=== PATIENT | male | born 1970 | race Two or more races ===

== ENCOUNTER 2016-11-16 13:30 | Emergency (ER) | payer OTHER ==
[2016-11-16 14:25] VITALS: RESP 20
--- NOTE | 2016-11-16 14:48 | ED ---
General Adult HPI - General Chief complaint: Urogenital Stated complaint: Male Time Seen by Provider: 11/16/16 13:45 Source: patient, RN notes reviewed Mode of arrival: ambulatory Limitations: no limitations - History of Present Illness Initial comments: This is a 46-year-old male presents emergency Department with a past medical history significant for multiple strokes. speech for the patient because the patient is very inaccurate according to and he is not able to express what he wants. Patient states this morning she figured out that he was having difficulty urinating and complained a super pubic abdominal pain. states she has had him in before for urinary tract infections and she wonders if that is going on again today. Patient has not had any recent fever or chills patient has not had any nausea vomiting diarrhea. Patient is not complaining any chest pain difficult breathing shortness of breath. Patient had no injury or trauma. Patient is not complaining of any back pain. - Related Data Home Medications Medication Instructions Recorded Confirmed Albuterol Inhaler [Ventolin Hfa 2 puff INHALATION RT-Q4H PRN 01/22/15 11/16/16 Inhaler] oxyCODONE-APAP 10-325MG [Percocet 1 tab PO Q6H PRN 04/16/15 11/16/16 10-325 mg] ALPRAZolam [Xanax] 0.25 mg PO Q6HR PRN 11/24/15 11/16/16 Acetaminophen Tab [Tylenol] 500 mg PO Q6H PRN 11/24/15 11/16/16 Dextroamphetamine/Amphetamine 10 mg PO BID 11/24/15 11/16/16 [Adderall Xr] Diltiazem Cd [Cardizem CD] 120 mg PO DAILY@0600 11/24/15 11/16/16 Metoprolol Tartrate [Lopressor] 50 mg PO BID@0600,1800 11/24/15 11/16/16 Omeprazole [PriLOSEC] 20 mg PO AC-BRKFST@0611/24/15 11/16/16 Pravastatin Sodium [Pravachol] 40 mg PO HS 11/24/15 11/16/16 Temazepam [Restoril] 30 mg PO HS PRN 11/24/15 11/16/16 guaiFENesin SYRUP 100MG/5ML 200 mg PO Q6HR PRN 11/24/15 11/16/16 [Robitussin] levETIRAcetam 750 mg PO BID@0600,1800 11/24/15 11/16/16 Ferrous Sulfate [Iron (65 MG 325 mg PO BID@0600,1800 12/16/15 11/16/16 Elemental)] Warfarin Sodium [Coumadin] 3 mg PO Q48H 12/16/15 11/16/16 Gabapentin [Neurontin] 600 mg PO DAILY@1800 11/16/16 11/16/16 Warfarin Sodium [Coumadin] 2 mg PO Q48H 11/16/16 11/16/16 Previous Rx's Medication Instructions Recorded Polyethylene Glycol 3350 [Miralax] 17 gm PO HS #30 powd.pack 11/29/15 Allergies Allergy/AdvReac Type Severity Reaction Status Date / Time codeine AdvReac Nausea & Verified 11/16/16 14:35 Vomiting Review of Systems ROS Statement: Those systems with pertinent positive or pertinent negative responses have been documented in the HPI. ROS Other: All systems not noted in ROS Statement are negative. Past Medical History Past Medical History: COPD, CVA/TIA, GERD/Reflux, Hypertension, Seizure Disorder Additional Past Medical History / Comment(s): LAST SEIZURE 08/2014, HX BLOOD IN STOOL, LEFT SIDED WEAKNESS R/T CVA, Brain Shunt, currently tied History of Any Multi-Drug Resistant Organisms: None Reported Past Surgical History: Orthopedic Surgery Additional Past Surgical History / Comment(s): LEFT SHOULDER RECENT SX, LIBRA KNEE , RT ARM, STATES HAD A "BAD STAPH INFECTION YEARS AGO IN ONE KNEE", UNSURE IF MRSA, vp product management shunt, bone removed and replaced in his skull. Past Anesthesia/Blood Transfusion Reactions: No Reported Reaction Past Psychological History: ADD/ADHD, Anxiety Smoking Status: Former smoker Past Alcohol Use History: Abuse, Heavy Additional Past Alcohol Use History / Comment(s): PATIENT STATES HE IS AN ALCHOHOLIC, Past Drug Use History: None Reported - Past Family History Father History Unknown: Yes Additional Family Medical History / Comment(s): Pt is adopted General Exam - General Exam Comments Initial Comments: GENERAL: Patient is well-developed and well-nourished. Patient is nontoxic and well- hydrated and is in no acute distress. ENT: Neck is soft and supple. No significant lymphadenopathy is noted. Oropharynx is clear. Moist mucous membranes. Neck has full range of motion without eliciting any pain. EYES: The sclera were anicteric and conjunctiva were pink and moist. Extraocular movements were intact and pupils were equal round and reactive to light. Eyelids were unremarkable. PULMONARY: Unlabored respirations. Good breath sounds bilaterally. No audible rales rhonchi or wheezing was noted. CARDIOVASCULAR: There is a regular rate and rhythm without any murmurs gallops or rubs. ABDOMEN: Soft and nontender with normal bowel sounds. No palpable organomegaly was noted. There is no palpable pulsatile mass. Genitalia Did a examination of the patient's scrotum testicles and penis I saw no acute abnormalities SKIN: Skin is clear with no lesions or rashes and otherwise unremarkable. NEUROLOGIC: Patient is alert and oriented x3. Cranial nerves II through XII are grossly intact. Motor and sensory are also intact. Normal speech, volume and content. Symmetrical smile. MUSCULOSKELETAL: Normal extremities with adequate strength and full range of motion. LYMPHATICS: No significant lymphadenopathy is noted Limitations: no limitations Course Vital Signs 11/16/16 11/16/16 11/16/16 13:42 14:20 15:18 Temperature 98.2 F 97.1 F L Pulse Rate 89 72 69 Respiratory 18 20 20 Rate Blood Pressure 112/87 119/84 119/87 O2 Sat by Pulse 92 L 100 95 Oximetry 11/16/16 16:00 Temperature 97.3 F L Pulse Rate 85 Respiratory 20 Rate Blood Pressure 143/89 O2 Sat by Pulse 96 Oximetry Procedures - Catheter Insertion (Urinary) Indications: other (Assessment urinary tract infection) Prophylactic Antibiotics Given: No Bladder Scan/US before Catheterization: Yes Preparation: Povidone-Iodine Type of Catheter Inserted: 2 way, Jean Baptiste Catheter Balloon Size (mLs): 10 Topical Anesthesia Used: No Results: successfully catheterized-immediate flow Patient Tolerated Procedure: well Complications: none Medical Decision Making - Medical Decision Making When I place a catheter I felt no resistance. - Lab Data Result diagrams: 11/16/16 15:19 11/16/16 15:19 Lab Results 11/16/16 11/16/16 11/16/16 Range/Units 15:19 15:19 15:26 WBC 3.6 L (3.8-10.6) k/uL RBC 3.92 L (4.30-5.90) m/uL Hgb 10.7 L (13.0-17.5) gm/dL Hct 34.7 L (39.0-53.0) % MCV 88.5 D (80.0-100.0) fL MCH 27.3 (25.0-35.0) pg MCHC 30.8 L (31.0-37.0) g/dL RDW 19.9 H (11.5-15.5) % Plt Count 267 (150-450) k/uL Neutrophils % 50 % Lymphocytes % 40 % Monocytes % 4 % Eosinophils % 3 % Basophils % 1 % Neutrophils # 1.8 (1.3-7.7) k/uL Lymphocytes # 1.4 (1.0-4.8) k/uL Monocytes # 0.1 (0-1.0) k/uL Eosinophils # 0.1 (0-0.7) k/uL Basophils # 0.0 (0-0.2) k/uL Hypochromasia Marked Anisocytosis Slight Sodium 141 (137-145) mmol/L Potassium 4.5 (3.5-5.1) mmol/L Chloride 106 (98-107) mmol/L Carbon Dioxide 20 L (22-30) mmol/L Anion Gap 15 mmol/L BUN 10 (9-20) mg/dL Creatinine 0.80 (0.66-1.25) mg/dL Est GFR (MDRD) Af Amer >60 (>60 ml/min/1.73 sqM) Est GFR (MDRD) Non-Af >60 (>60 ml/min/1.73 sqM) Glucose 86 (74-99) mg/dL Calcium 8.4 (8.4-10.2) mg/dL Total Bilirubin 1.0 (0.2-1.3) mg/dL AST 134 H (17-59) U/L ALT 97 H (21-72) U/L Alkaline Phosphatase 211 H (38-126) U/L Total Protein 6.4 (6.3-8.2) g/dL Albumin 3.8 (3.5-5.0) g/dL Urine Color Yellow Urine Appearance Clear (Clear) Urine pH 6.5 (5.0-8.0) Ur Specific [place] 1.027 (1.001-1.035) Urine Protein 1+ H (Negative) Urine Glucose (UA) Negative (Negative) Urine Ketones 1+ H (Negative) Urine Blood Negative (Negative) Urine Nitrate Negative (Negative) Urine Bilirubin Negative (Negative) Urine Urobilinogen <2.0 (<2.0) mg/dL Ur Leukocyte Esterase Negative (Negative) Urine RBC 1 (0-5) /hpf Urine WBC 4 (0-5) /hpf Ur Squamous Epith Cells <1 (0-4) /hpf Granular Casts 10 (0) /lpf Urine Mucus Rare H (None) /hpf Disposition Clinical Impression: Dysuria Disposition: HOME SELF-CARE Condition: Good Instructions: Dysuria (ED) Referrals: Camelia Clarke MD [Primary Care Provider] - 1-2 days Time of Disposition: 16:51
[2016-11-16 15:27] LABS: Anisocytosis Slight; Basophils % (A) 1 %; CHCM 30.3; Eosinophils # (A) 0.1 k/uL (0-0.7); Eosinophils % (A) 3 %; HCT 34.7 % (39.0-53.0); HDW 3.01; HGB 10.7 gm/dL (13.0-17.5); Hypochromasia Marked; Luc # (Auto) 0.09; Luc % (Auto) 3; Lymphocytes # (A) 1.4 k/uL (1.0-4.8); Lymphocytes % (A) 40 %; MCH 27.3 pg (25.0-35.0); MCHC 30.8 g/dL (31.0-37.0); Mean Platelet Volume 6.6; Monocytes # (A) 0.1 k/uL (0-1.0); Monocytes % (A) 4 %; Neutrophils # (A) 1.8 k/uL (1.3-7.7); Neutrophils % (A) 50 %; RBC 3.92 m/uL (4.30-5.90); RDW 19.9 % (11.5-15.5); WBC 3.6 k/uL (3.8-10.6); WBC (Perox) 3.82
[2016-11-16 15:37] LABS: ALT 97 U/L (21-72); AST 134 U/L (17-59); Alkaline Phosphatase 211 U/L (38-126); Anion Gap 15 mmol/L; Blood Urea Nitrogen 10 mg/dL (9-20); Calcium 8.4 mg/dL (8.4-10.2); Carbon Dioxide 20 mmol/L (22-30); Chloride 106 mmol/L (98-107); Glucose 86 mg/dL (74-99); Non-African American GFR(MDRD) >60 (>60 ml/min/1.73 sqM); Sodium 141 mmol/L (137-145); Total Protein 6.4 g/dL (6.3-8.2)
[2016-11-16 15:43] LABS: MCV 88.5 fL (80.0-100.0)
[2016-11-16 15:45] LABS: Potassium 4.5 mmol/L (3.5-5.1)
[2016-11-16 16:23] LABS: Appearance,Urine Clear (Clear); Bilirubin,Urine Negative (Negative); Glucose,Urine (UA) Negative (Negative); Granular Casts,Urine 10 /lpf (0); Ketones,Urine 1+ (Negative); Leukocyte Esterase,Urine Negative (Negative); Mucus,Urine Rare /hpf; Nitrite,Urine Negative (Negative); PH, Urine 6.5 (5.0-8.0); Particle Count 1983; Protein,Urine 1+ (Negative); RBC,Urine 1 /hpf (0-5); Specific Gravity,Urine 1.027 (1.001-1.035); Squamous Epithelial Cell,Urine <1 /hpf (0-4); UA Billing (MACRO vs. MICRO) MICRO; Urobilinogen,Urine <2.0 mg/dL (<2.0); WBC,Urine 4 /hpf (0-5)
[2016-11-16 17:17] VITALS: BP 127/91; PULSE 79; TEMP 98.3
== END 2016-11-16 17:25 | disposition home or self-care (01) ==
LOC: EC 13:30
DX: R30.0 Dysuria (principal); Z86.73 Personal history of transient ischemic attack (TIA), and cerebral infarction without residual deficits; K21.9 Gastro-esophageal reflux disease without esophagitis; I10 Essential (primary) hypertension; G40.909 Epilepsy, unspecified, not intractable, without status epilepticus; Z79.899 Other long term (current) drug therapy; Z79.01 Long term (current) use of anticoagulants; J44.9 Chronic obstructive pulmonary disease, unspecified; Z87.891 Personal history of nicotine dependence; Z87.440 Personal history of urinary (tract) infections; Z88.5 Allergy status to narcotic agent; F90.9 Attention-deficit hyperactivity disorder, unspecified type
CPT/HCPCS: 36415; 51702; 51798; 80053; 81001; 85025; 87086; 99283

== ENCOUNTER 2017-02-13 12:26 | Inpatient (IN) | payer OTHER ==
[2017-02-13] MEDS ORDERED: SODIUM CHLORIDE 0.9% 1,000 ML IV ONE ×2 (12:31→22:05)
[2017-02-13] MEDS ORDERED: RX INFO: IV CONTRAST WAS GIVEN 1 EACH MISC MISCELLANE PRN (12:36)
--- NOTE | 2017-02-13 12:36 | ED ---
General Adult HPI - General Stated complaint: Altered Mental State Time Seen by Provider: 02/13/17 12:31 Source: patient, EMS, RN notes reviewed Mode of arrival: EMS Limitations: altered mental status, physical limitation - History of Present Illness Initial comments: Patient is a pleasant 46-year-old male presenting to the emergency Department with concerns regarding altered mental status. Patient reportedly has been altered and more weak over several days. Symptoms worsened yesterday. Patient is a very poor historian and offers no significant history. Patient does have garbled speech however during painful stimuli he is clearly heard saying "stop it". History and exam are limited. Patient does have a history of reported drug use and alcohol use and strokes. EMS states patient does have a history of chronic right-sided weakness from previous stroke. Patient lost ability to walk since yesterday. - Related Data Home Medications Medication Instructions Recorded Confirmed oxyCODONE-APAP 10-325MG [Percocet 1 tab PO Q6H 04/16/15 02/13/17 10-325 mg] ALPRAZolam [Xanax] 0.25 mg PO Q6HR PRN 11/24/15 02/13/17 Acetaminophen Tab [Tylenol] 500 mg PO Q6H PRN 11/24/15 02/13/17 Diltiazem Cd [Cardizem CD] 120 mg PO DAILY@0600 11/24/15 02/13/17 Metoprolol Tartrate [Lopressor] 50 mg PO BID@0600,1800 11/24/15 02/13/17 Pravastatin Sodium [Pravachol] 40 mg PO HS 11/24/15 02/13/17 Temazepam [Restoril] 30 mg PO HS 11/24/15 02/13/17 guaiFENesin SYRUP 100MG/5ML 200 mg PO Q6HR PRN 11/24/15 02/13/17 [Robitussin] levETIRAcetam 750 mg PO BID@0600,1800 11/24/15 02/13/17 Ferrous Sulfate [Iron (65 MG 325 mg PO BID@0600,1800 12/16/15 02/13/17 Elemental)] Warfarin Sodium [Coumadin] 3 mg PO HS 12/16/15 02/13/17 Gabapentin [Neurontin] 600 mg PO DAILY@1800 11/16/16 02/13/17 Dextroamphetamine/Amphetamine 10 mg PO BID@0600,1200 02/13/17 02/13/17 [Adderall] Docusate [Colace] 100 mg PO DAILY PRN 02/13/17 02/13/17 Lisinopril [Zestril] 2.5 mg PO DAILY@0600 02/13/17 02/13/17 Pantoprazole [Protonix] 40 mg PO DAILY@0600 02/13/17 02/13/17 Allergies Allergy/AdvReac Type Severity Reaction Status Date / Time codeine AdvReac Nausea & Verified 02/13/17 14:43 Vomiting Review of Systems ROS Statement: Those systems with pertinent positive or pertinent negative responses have been documented in the HPI. ROS Other: All systems not noted in ROS Statement are negative. Limitations: ROS unobtainable due to patients medical condition Past Medical History Past Medical History: COPD, CVA/TIA, GERD/Reflux, Hypertension, Seizure Disorder Additional Past Medical History / Comment(s): LAST SEIZURE 08/2014, HX BLOOD IN STOOL, LEFT SIDED WEAKNESS R/T CVA, Brain Shunt, currently tied History of Any Multi-Drug Resistant Organisms: None Reported Past Surgical History: Orthopedic Surgery Additional Past Surgical History / Comment(s): LEFT SHOULDER RECENT SX, LIBRA KNEE , RT ARM, STATES HAD A "BAD STAPH INFECTION YEARS AGO IN ONE KNEE", UNSURE IF MRSA, vp product management shunt, bone removed and replaced in his skull. Past Anesthesia/Blood Transfusion Reactions: No Reported Reaction Past Psychological History: ADD/ADHD, Anxiety Smoking Status: Former smoker Past Alcohol Use History: Abuse, Heavy Additional Past Alcohol Use History / Comment(s): PATIENT STATES HE IS AN ALCHOHOLIC, Past Drug Use History: None Reported - Past Family History Father History Unknown: Yes Additional Family Medical History / Comment(s): Pt is adopted General Exam Limitations: altered mental status, physical limitation General appearance: other (Patient drowsy but arousable to painful stimuli. Garbled speech. Difficulty following commands.) Head exam: Present: other (Ecchymosis right orbital region) Eye exam: Present: normal appearance, PERRL ENT exam: Present: normal oropharynx Neck exam: Present: normal inspection. Absent: tenderness, meningismus Respiratory exam: Present: normal lung sounds bilaterally Cardiovascular Exam: Present: regular rate, normal rhythm GI/Abdominal exam: Present: soft. Absent: distended, tenderness Extremities exam: Present: normal inspection, full ROM. Absent: tenderness Neurological exam: Present: altered Expanded Motor strength exam: RUE: 2/1, LUE: 5, RLE: 2/1, LLE: 3 Psychiatric exam: Present: other (Limited secondary to limited communication) Skin exam: Present: other (Some areas of ecchymosis of the abdomen and right orbital region.) Course Vital Signs 02/13/17 02/13/17 02/13/17 12:30 12:45 13:00 Temperature 98.5 F Pulse Rate 72 70 82 Respiratory 14 22 18 Rate Blood Pressure 81/46 78/49 82/50 O2 Sat by Pulse 95 99 97 Oximetry 02/13/17 02/13/17 14:00 14:15 Temperature Pulse Rate 72 73 Respiratory 18 14 Rate Blood Pressure 97/53 83/51 O2 Sat by Pulse 99 100 Oximetry - Reevaluation(s) Reevaluation #1: 02/13/17 12:34 Patient is not a candidate for TPA secondary to onset of symptoms greater than 24 hours. EKG Findings - EKG Comments: EKG Findings:: Normal sinus rhythm 71. NC 206. QRS 94. QT 412. QTC 447. Normal axis. Normal QRS. No acute ST change. Medical Decision Making - Medical Decision Making Patient reevaluated and unchanged. states speech pattern is normal for him. She states she is concerned that he is less alert overall and not able to walk today. was updated on results and plan. Dr. Zavala has been paged for admission of his patient. Admission orders written. Nephrology will be consult. IV fluid bolus has been provided. Blood pressure has improved from the low 80s to 93to 97 systolic. - Lab Data Result diagrams: 02/13/17 12:35 02/13/17 12:35 Lab Results 02/13/17 02/13/17 02/13/17 Range/Units 12:35 12:35 12:35 WBC 4.6 (3.8-10.6) k/uL RBC 3.19 L (4.30-5.90) m/uL Hgb 9.1 L (13.0-17.5) gm/dL Hct 30.9 L (39.0-53.0) % MCV 96.7 (80.0-100.0) fL MCH 28.5 (25.0-35.0) pg MCHC 29.4 L (31.0-37.0) g/dL RDW 19.5 H (11.5-15.5) % Plt Count 188 (150-450) k/uL Neutrophils % 76 % Lymphocytes % 13 % Monocytes % 5 % Eosinophils % 4 % Basophils % 0 % Neutrophils # 3.5 (1.3-7.7) k/uL Lymphocytes # 0.6 L (1.0-4.8) k/uL Monocytes # 0.2 (0-1.0) k/uL Eosinophils # 0.2 (0-0.7) k/uL Basophils # 0.0 (0-0.2) k/uL Hypochromasia Marked Anisocytosis Slight Macrocytosis Slight PT (9.0-12.0) sec INR (<1.1) APTT (22.0-30.0) sec Sodium 132 L (137-145) mmol/L Potassium 5.8 H (3.5-5.1) mmol/L Chloride 104 (98-107) mmol/L Carbon Dioxide 9 L* (22-30) mmol/L Anion Gap 19 mmol/L BUN 63 H (9-20) mg/dL Creatinine 7.22 H* (0.66-1.25) mg/dL Est GFR (MDRD) Af Amer 10 (>60 ml/min/1.73 sqM) Est GFR (MDRD) Non-Af 8 (>60 ml/min/1.73 sqM) Glucose 100 H (74-99) mg/dL POC Glucose (mg/dL) (75-99) mg/dL POC Glu Energy Conservation Technician ID Calcium 7.8 L (8.4-10.2) mg/dL Total Bilirubin 1.2 (0.2-1.3) mg/dL AST 1187 H (17-59) U/L ALT 1718 H (21-72) U/L Alkaline Phosphatase 114 (38-126) U/L Ammonia (<30) umol/L Total Creatine Kinase 394 H (55-170) U/L CK-MB (CK-2) 5.4 H* (0.0-2.4) ng/mL CK-MB (CK-2) Rel Index 1.4 Troponin I <0.012 (0.000-0.034) ng/mL Total Protein 5.9 L (6.3-8.2) g/dL Albumin 3.2 L (3.5-5.0) g/dL Urine Color Urine Appearance (Clear) Urine pH (5.0-8.0) Ur Specific [place] (1.001-1.035) Urine Protein (Negative) Urine Glucose (UA) (Negative) Urine Ketones (Negative) Urine Blood (Negative) Urine Nitrite (Negative) Urine Bilirubin (Negative) Urine Urobilinogen (<2.0) mg/dL Ur Leukocyte Esterase (Negative) Urine RBC (0-5) /hpf Urine WBC (0-5) /hpf Hyaline Casts (0-2) /lpf Urine Mucus (None) /hpf Urine Opiates Screen (NotDetected) Ur Oxycodone Screen (NotDetected) Urine Methadone Screen (NotDetected) Ur Propoxyphene Screen (NotDetected) Ur Barbiturates Screen (NotDetected) U Tricyclic Antidepress (NotDetected) Ur Phencyclidine Scrn (NotDetected) Ur Amphetamines Screen (NotDetected) U Methamphetamines Scrn (NotDetected) U Benzodiazepines Scrn (NotDetected) Urine Cocaine Screen (NotDetected) U Marijuana (THC) Screen (NotDetected) Serum Alcohol <10 mg/dL 02/13/17 02/13/17 02/13/17 Range/Units 12:35 12:35 12:42 WBC (3.8-10.6) k/uL RBC (4.30-5.90) m/uL Hgb (13.0-17.5) gm/dL Hct (39.0-53.0) % MCV (80.0-100.0) fL MCH (25.0-35.0) pg MCHC (31.0-37.0) g/dL RDW (11.5-15.5) % Plt Count (150-450) k/uL Neutrophils % % Lymphocytes % % Monocytes % % Eosinophils % % Basophils % % Neutrophils # (1.3-7.7) k/uL Lymphocytes # (1.0-4.8) k/uL Monocytes # (0-1.0) k/uL Eosinophils # (0-0.7) k/uL Basophils # (0-0.2) k/uL Hypochromasia Anisocytosis Macrocytosis PT >130.0 H (9.0-12.0) sec INR >10.0 H* (<1.1) APTT 83.8 H (22.0-30.0) sec Sodium (137-145) mmol/L Potassium (3.5-5.1) mmol/L Chloride (98-107) mmol/L Carbon Dioxide (22-30) mmol/L Anion Gap mmol/L BUN (9-20) mg/dL Creatinine (0.66-1.25) mg/dL Est GFR (MDRD) Af Amer (>60 ml/min/1.73 sqM) Est GFR (MDRD) Non-Af (>60 ml/min/1.73 sqM) Glucose (74-99) mg/dL POC Glucose (mg/dL) 106 H (75-99) mg/dL POC Glu Energy Conservation Technician ID Kristy Ramirez Calcium (8.4-10.2) mg/dL Total Bilirubin (0.2-1.3) mg/dL AST (17-59) U/L ALT (21-72) U/L Alkaline Phosphatase (38-126) U/L Ammonia 62 H (<30) umol/L Total Creatine Kinase (55-170) U/L CK-MB (CK-2) (0.0-2.4) ng/mL CK-MB (CK-2) Rel Index Troponin I (0.000-0.034) ng/mL Total Protein (6.3-8.2) g/dL Albumin (3.5-5.0) g/dL Urine Color Urine Appearance (Clear) Urine pH (5.0-8.0) Ur Specific [place] (1.001-1.035) Urine Protein (Negative) Urine Glucose (UA) (Negative) Urine Ketones (Negative) Urine Blood (Negative) Urine Nitrite (Negative) Urine Bilirubin (Negative) Urine Urobilinogen (<2.0) mg/dL Ur Leukocyte Esterase (Negative) Urine RBC (0-5) /hpf Urine WBC (0-5) /hpf Hyaline Casts (0-2) /lpf Urine Mucus (None) /hpf Urine Opiates Screen (NotDetected) Ur Oxycodone Screen (NotDetected) Urine Methadone Screen (NotDetected) Ur Propoxyphene Screen (NotDetected) Ur Barbiturates Screen (NotDetected) U Tricyclic Antidepress (NotDetected) Ur Phencyclidine Scrn (NotDetected) Ur Amphetamines Screen (NotDetected) U Methamphetamines Scrn (NotDetected) U Benzodiazepines Scrn (NotDetected) Urine Cocaine Screen (NotDetected) U Marijuana (THC) Screen (NotDetected) Serum Alcohol mg/dL 02/13/17 Range/Units 12:50 WBC (3.8-10.6) k/uL RBC (4.30-5.90) m/uL Hgb (13.0-17.5) gm/dL Hct (39.0-53.0) % MCV (80.0-100.0) fL MCH (25.0-35.0) pg MCHC (31.0-37.0) g/dL RDW (11.5-15.5) % Plt Count (150-450) k/uL Neutrophils % % Lymphocytes % % Monocytes % % Eosinophils % % Basophils % % Neutrophils # (1.3-7.7) k/uL Lymphocytes # (1.0-4.8) k/uL Monocytes # (0-1.0) k/uL Eosinophils # (0-0.7) k/uL Basophils # (0-0.2) k/uL Hypochromasia Anisocytosis Macrocytosis PT (9.0-12.0) sec INR (<1.1) APTT (22.0-30.0) sec Sodium (137-145) mmol/L Potassium (3.5-5.1) mmol/L Chloride (98-107) mmol/L Carbon Dioxide (22-30) mmol/L Anion Gap mmol/L BUN (9-20) mg/dL Creatinine (0.66-1.25) mg/dL Est GFR (MDRD) Af Amer (>60 ml/min/1.73 sqM) Est GFR (MDRD) Non-Af (>60 ml/min/1.73 sqM) Glucose (74-99) mg/dL POC Glucose (mg/dL) (75-99) mg/dL POC Glu Energy Conservation Technician ID Calcium (8.4-10.2) mg/dL Total Bilirubin (0.2-1.3) mg/dL AST (17-59) U/L ALT (21-72) U/L Alkaline Phosphatase (38-126) U/L Ammonia (<30) umol/L Total Creatine Kinase (55-170) U/L CK-MB (CK-2) (0.0-2.4) ng/mL CK-MB (CK-2) Rel Index Troponin I (0.000-0.034) ng/mL Total Protein (6.3-8.2) g/dL Albumin (3.5-5.0) g/dL Urine Color Red Urine Appearance Cloudy (Clear) Urine pH 5.5 (5.0-8.0) Ur Specific [place] 1.023 (1.001-1.035) Urine Protein 1+ H (Negative) Urine Glucose (UA) Negative (Negative) Urine Ketones Negative (Negative) Urine Blood Large H (Negative) Urine Nitrite Negative (Negative) Urine Bilirubin Negative (Negative) Urine Urobilinogen <2.0 (<2.0) mg/dL Ur Leukocyte Esterase Negative (Negative) Urine RBC >182 H (0-5) /hpf Urine WBC 6 H (0-5) /hpf Hyaline Casts 4 H (0-2) /lpf Urine Mucus Rare H (None) /hpf Urine Opiates Screen Detected H (NotDetected) Ur Oxycodone Screen Detected H (NotDetected) Urine Methadone Screen Not Detected (NotDetected) Ur Propoxyphene Screen Not Detected (NotDetected) Ur Barbiturates Screen Not Detected (NotDetected) U Tricyclic Antidepress Detected H (NotDetected) Ur Phencyclidine Scrn Not Detected (NotDetected) Ur Amphetamines Screen Not Detected (NotDetected) U Methamphetamines Scrn Not Detected (NotDetected) U Benzodiazepines Scrn Detected H (NotDetected) Urine Cocaine Screen Not Detected (NotDetected) U Marijuana (THC) Screen Not Detected (NotDetected) Serum Alcohol mg/dL Critical Care Time Critical Care Time: Yes Total Critical Care Time: 33 Disposition Clinical Impression: Coagulopathy, Acute renal failure (ARF), Hepatic encephalopathy Disposition: ADMITTED IP TO THIS [facility] Condition: Serious Referrals: Camelia Clarke MD [Primary Care Provider] - 1-2 days Time of Disposition: 15:02
[2017-02-13] MEDS ORDERED: SODIUM CHLORIDE 0.9% 1,000 ML IV STA ×2 (12:39→15:54)
[2017-02-13 12:43] LABS: Glucose,Whole Blood 106 mg/dL (75-99)
[2017-02-13 12:47] LABS: Anisocytosis Slight; Basophils % (A) 0 %; CH 27.5; CHCM 28.6; Eosinophils # (A) 0.2 k/uL (0-0.7); Eosinophils % (A) 4 %; HCT 30.9 % (39.0-53.0); HDW 2.86; HGB 9.1 gm/dL (13.0-17.5); Hypochromasia Marked; Luc # (Auto) 0.11; Luc % (Auto) 2; Lymphocytes # (A) 0.6 k/uL (1.0-4.8); Lymphocytes % (A) 13 %; MCH 28.5 pg (25.0-35.0); MCHC 29.4 g/dL (31.0-37.0); MCV 96.7 fL (80.0-100.0); Macrocytosis Slight; Mean Platelet Volume 7.6; Monocytes # (A) 0.2 k/uL (0-1.0); Monocytes % (A) 5 %; Neutrophils # (A) 3.5 k/uL (1.3-7.7); Neutrophils % (A) 76 %; RBC 3.19 m/uL (4.30-5.90); RDW 19.5 % (11.5-15.5); WBC 4.6 k/uL (3.8-10.6); WBC (Perox) 4.93
[2017-02-13 13:00] LABS: Alcohol <10 mg/dL; Alkaline Phosphatase 114 U/L (38-126); Blood Urea Nitrogen 63 mg/dL (9-20); Calcium 7.8 mg/dL (8.4-10.2); Chloride 104 mmol/L (98-107); Glucose 100 mg/dL (74-99); Potassium 5.8 mmol/L (3.5-5.1); Sodium 132 mmol/L (137-145); Total Bilirubin 1.2 mg/dL (0.2-1.3); Total Protein 5.9 g/dL (6.3-8.2)
[2017-02-13 13:05] LABS: Anion Gap 19 mmol/L
[2017-02-13 13:08] LABS: ALT 1718 U/L (21-72); AST 1187 U/L (17-59); Non-African American GFR(MDRD) 8 (>60 ml/min/1.73 sqM)
[2017-02-13 13:09] LABS: Carbon Dioxide 9 mmol/L (22-30)
[2017-02-13 13:11] LABS: Appearance,Urine Cloudy (Clear); Bilirubin,Urine Negative (Negative); Glucose,Urine (UA) Negative (Negative); Ketones,Urine Negative (Negative); Leukocyte Esterase,Urine Negative (Negative); Mucus,Urine Rare /hpf; Nitrite,Urine Negative (Negative); PH, Urine 5.5 (5.0-8.0); Particle Count 10338; Protein,Urine 1+ (Negative); RBC,Urine >182 /hpf (0-5); Specific Gravity,Urine 1.023 (1.001-1.035); UA Billing (MACRO vs. MICRO) MICRO; Urobilinogen,Urine <2.0 mg/dL (<2.0); WBC,Urine 6 /hpf (0-5)
[2017-02-13 13:23] LABS: Troponin I <0.012 ng/mL (0.000-0.034)
[2017-02-13 13:24] LABS: Creatine Kinase 394 U/L (55-170); Creatine Kinase MB 5.4 ng/mL (0.0-2.4)
--- NOTE | 2017-02-13 13:33 | XR ---
EXAMINATION TYPE: XR chest 2V DATE OF EXAM: 02/13/2017 1:23 PM COMPARISON: 11/24/2015 INDICATION: Altered mental status TECHNIQUE: Single frontal view of the chest is obtained. FINDINGS: The heart size is enlarged. A left suprahilar surgical clip is present. The pulmonary vasculature is normal. The lungs are clear. IMPRESSION: 1. Cardiomegaly. 2. No acute pulmonary process.
[2017-02-13 13:36] LABS: Partial Thromboplastin Time 83.8 sec (22.0-30.0)
[2017-02-13 13:37] LABS: INR >10.0 (<1.1); Prothrombin Time >130.0 sec (9.0-12.0)
--- NOTE | 2017-02-13 13:37 | CT ---
EXAMINATION TYPE: CT brain wo con DATE OF EXAM: 02/13/2017 1:29 PM COMPARISON: 09/18/2016 INDICATION: Altered mental status. Prior CVA. Pt has shunt. DLP: 1046 mGycm, Automated exposure control for dose reduction was used. CONTRAST: None CT of the brain is performed utilizing 3 mm thick sections through the posterior fossa and 3 mm thick sections through the remaining calvarium. Study is performed within 24 hours of arrival to the hosp ital. No abnormal hyperdensity is present to suggest an acute intracranial hemorrhage. No mass lesion is evident. No acute infarcts are evident. There is an old large infarct through the occipital lobe extending int o the temporal lobe. Shunt catheter is present on the left. Cortical white matter changes are in the left parietal lobe adjacent to the temporal lobe region. Ventricles and sulci are appropriate for the patient age. Mucosal thickening is within the right maxillary sinus. Air-fluid level is not excluded. Small amount of mucosal thickening is within the left maxillary sinus. There is an air-fluid level within the rig ht frontal sinus. Mucosal thickening is through prior ethmoidectomy levels. Mastoid air cells are benito ar. There is a prior left craniotomy. IMPRESSIONS: 1. 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
[2017-02-13] MEDS ORDERED: PHYTONADIONE 2 MG in SODIUM CHLORIDE 0.9% 50 ML IVPB STA (13:46)
--- NOTE | 2017-02-13 14:51 | CT ---
EXAMINATION TYPE: CT abdomen pelvis w con DATE OF EXAM: 02/13/2017 1:30 PM COMPARISON: NONE INDICATION: Altered mental status. Ecchymosis DLP: 1613.1 mGycm, Automated exposure control for dose reduction was used. CONTRAST: 100 ml mL of Omnipaque 300. Study performed without Oral Contrast TECHNIQUE: Axial images were obtained from above the diaphragm to the pubic rami in the axial plane a t 5 mm thick sections. Reconstructed images are reviewed on the computer in the coronal plane. FINDINGS: Limited CT sections are obtained the lung bases. There is likely some mild subsegmental atelectasis at the left base. Minimal infiltrate from early infectious etiology such as pneumonia could be consid ered.. CT ABDOMEN: Liver: Normal Spleen: Normal Pancreas: Atrophic Adrenal glands: The adrenal glands are normal. Gallbladder: Surgically absent. The common bile duct is prominent and may measure 1.6 cm at the head of the pancreas. Kidneys: No masses are evident. No hydronephrosis is present. No cysts are present. Delayed images were obtained through the kidneys, which remain unremarkable. Aorta: Vascular calcification is within the aorta. Inferior vena cava: Normal. CT PELVIS: Loops of bowel within the abdomen and pelvis are normal. Appendix: Normal as visualized. Urinary bladder: Decompressed with a Jean Baptiste catheter causing limited evaluation. Genitourinary structures: Prostate is unremarkable. Osseous structures: No suspicious lytic or sclerotic lesions. IMPRESSIONS: 1. No suspicious acute changes
[2017-02-13] MEDS ORDERED: NALOXONE 0.4 MG/ML 1 ML VIAL IV PRN (15:03)
[2017-02-13] MEDS ORDERED: SODIUM CHLORIDE 0.9% 1,000 ML IV SCH (15:15)
[2017-02-13] MEDS ORDERED: SODIUM CHLORIDE 0.9% IVPB STA (15:32)
[2017-02-13] MEDS ORDERED: PHYTONADIONE IVPB STA (15:32)
[2017-02-13] MEDS ORDERED: WATER FOR INJECTION, STERILE 1,000 ML with SODIUM ACETATE 150 MEQ IV SCH ×2 (16:00)
[2017-02-13] MEDS ORDERED: LACTULOSE 20 GM/30 ML CUP PO STA (16:13)
[2017-02-13] MEDS ORDERED: PANTOPRAZOLE 40 MG/10 ML VIAL IV STA (16:13)
[2017-02-13 17:59] LABS: Glucose,Whole Blood 98 mg/dL (75-99)
[2017-02-13] MEDS ORDERED: DOCUSATE 100 MG CAP PO PRN (18:37)
[2017-02-13] MEDS ORDERED: ALPRAZolam 0.25 MG TAB PO PRN (18:37)
[2017-02-13] MEDS ORDERED: levETIRAcetam IV 750 MG in SODIUM CHLORIDE 0.9% 100 ML IVPB SCH (21:00)
[2017-02-13] MEDS: DEXTROSE 5% IN WATER 1,000 ML with SODIUM BICARB (1 MEQ/ML) 150 ML IV SCH (21:11)
[2017-02-13] MEDS: LACTULOSE 20 GM/30 ML CUP PO SCH (21:37)
[2017-02-13 22:09] LABS: INR 3.2 (<1.1); Partial Thromboplastin Time 34.7 sec (22.0-30.0); Prothrombin Time 31.3 sec (9.0-12.0)
[2017-02-13 22:14] LABS: Anisocytosis Slight; Basophils % (A) 0 %; CH 27.1; CHCM 27.3; Eosinophils # (A) 0.1 k/uL (0-0.7); Eosinophils % (A) 4 %; HCT 26.7 % (39.0-53.0); HDW 2.69; HGB 7.7 gm/dL (13.0-17.5); Hypochromasia Marked; Luc # (Auto) 0.08; Luc % (Auto) 2; Lymphocytes # (A) 0.6 k/uL (1.0-4.8); Lymphocytes % (A) 17 %; MCH 28.7 pg (25.0-35.0); MCHC 28.8 g/dL (31.0-37.0); MCV 99.7 fL (80.0-100.0); Macrocytosis Moderate; Mean Platelet Volume 7.6; Monocytes # (A) 0.2 k/uL (0-1.0); Monocytes % (A) 5 %; Neutrophils # (A) 2.4 k/uL (1.3-7.7); Neutrophils % (A) 72 %; RBC 2.68 m/uL (4.30-5.90); WBC 3.3 k/uL (3.8-10.6); WBC (Perox) 3.33
[2017-02-13 22:20] LABS: Magnesium 1.9 mg/dL (1.6-2.3); Phosphorous 3.5 mg/dL (2.5-4.5); Potassium 4.6 mmol/L (3.5-5.1); Total Bilirubin 1.2 mg/dL (0.2-1.3); Total Protein 4.8 g/dL (6.3-8.2)
[2017-02-13] MEDS ORDERED: THIAMINE 100 MG/ML 2 ML VIAL IM STA (23:36)
[2017-02-13] MEDS ORDERED: LORazepam 2 MG/ML SYRINGE IV PRN (23:36)
[2017-02-14 01:57] LABS: Glucose,Whole Blood 157 mg/dL (75-99)
[2017-02-14] MEDS: INSULIN LISPRO (humaLOG) 300 UNIT/3 ML VIAL SQ SCH ×4 (02:02→18:53)
[2017-02-14] MEDS: LORazepam 2 MG/ML SYRINGE IV PRN ×9 (05:26→23:47)
[2017-02-14 05:51] LABS: Anisocytosis Slight; Basophils % (A) 0 %; CH 28.1; CHCM 29.8; Eosinophils # (A) 0.1 k/uL (0-0.7); Eosinophils % (A) 2 %; HDW 2.71; HGB 7.1 gm/dL (13.0-17.5); Hypochromasia Marked; Luc # (Auto) 0.08; Luc % (Auto) 2; Lymphocytes # (A) 0.3 k/uL (1.0-4.8); Lymphocytes % (A) 9 %; MCHC 30.7 g/dL (31.0-37.0); Macrocytosis Slight; Mean Platelet Volume 7.6; Monocytes # (A) 0.3 k/uL (0-1.0); Monocytes % (A) 8 %; Neutrophils # (A) 2.6 k/uL (1.3-7.7); Neutrophils % (A) 79 %; RBC 2.44 m/uL (4.30-5.90); RDW 19.7 % (11.5-15.5); WBC 3.3 k/uL (3.8-10.6); WBC (Perox) 3.09
[2017-02-14 05:53] LABS: MCV 94.5 fL (80.0-100.0)
[2017-02-14 05:54] LABS: INR 1.5 (<1.1); Prothrombin Time 14.8 sec (9.0-12.0)
[2017-02-14] MEDS ORDERED: LEVETIRACETAM 750 MG PO SCH (06:00)
[2017-02-14] MEDS ORDERED: NON-FORMULARY DRUG (Dextroamphetamine/Amphetamine [Adderall] 10 MG) PO SCH (06:00)
[2017-02-14 06:07] LABS: Glucose,Whole Blood 179 mg/dL (75-99)
[2017-02-14 06:21] LABS: Calcium 7.5 mg/dL (8.4-10.2); Magnesium 1.8 mg/dL (1.6-2.3); Phosphorous 1.8 mg/dL (2.5-4.5); Potassium 3.7 mmol/L (3.5-5.1); Total Bilirubin 1.4 mg/dL (0.2-1.3); Total Protein 4.5 g/dL (6.3-8.2)
[2017-02-14] MEDS: DEXTROSE 5% IN WATER 1,000 ML with SODIUM BICARB (1 MEQ/ML) 150 ML IV SCH ×3 (06:27→18:53)
[2017-02-14] MEDS: levETIRAcetam IV 750 MG in SODIUM CHLORIDE 0.9% 100 ML IVPB SCH ×2 (06:27→18:53)
[2017-02-14] MEDS ORDERED: Magnesium Replacement Protocol 1 EACH MISC MISCELLANE PRN (07:49)
[2017-02-14] MEDS: FERROUS SULFATE 325 MG TAB PO SCH ×2 (08:14→16:38)
[2017-02-14] MEDS: MAGNESIUM SULFATE-D5W PMX 1 GM in DEXTROSE/WATER 1 100ML.BAG IVPB SCH ×2 (08:14→12:11)
--- NOTE | 2017-02-14 08:33 | US ---
EXAMINATION TYPE: US kidneys/renal and bladder DATE OF EXAM: 02/14/2017 8:27 AM COMPARISON: CT & US CLINICAL HISTORY: ARF. ARF, exam done portable in ICU EXAM MEASUREMENTS: Right Kidney: 11.1 x 5.1 x 5.2 cm Left Kidney: 11.8 x 6.2 x 6.0 cm Right Kidney: no hydronephrosis or masses seen Left Kidney: no hydronephrosis or masses seen Bladder: wnl as seen, not fully distended, zapata catheter Bilateral Jets seen: no IMPRESSION: NORMAL RENAL ULTRASOUND.
[2017-02-14] MEDS: POTASSIUM PHOSPHATE 10 MMOL in SODIUM CHLORIDE 0.9% 250 ML IV SCH ×2 (08:47→12:11)
[2017-02-14] MEDS: PANTOPRAZOLE 40 MG/10 ML VIAL IV SCH (08:48)
--- NOTE | 2017-02-14 09:07 | P.NPCON ---
History of Present Illness - Reason for Consult acute renal failure - History of Present Illness Reason for consultation: Acute kidney injury History of present illness: Patient is a 46-year-old male seen in renal consultation for acute kidney injury. Unclear as to what his baseline renal function is. His creatinine was 7.2 on admission. He was also hypotensive. He did receive over 3 L of IV fluid resuscitation. Currently he is hemodynamically stable and not requiring any vasopressors. His creatinine is down to 2 days morning. Patient has history of CVAs with right-sided weakness. Patient is currently sleeping and is difficult to awaken. He is maintained on CIWA protocol. I don't see any diuretics or NSAIDs listed in his home medications. However it appears he does take lisinopril. He was extremely acidotic with a bicarb level of 9 for which she is currently maintained on sodium bicarbonate drip. His bicarb level is improved to 17 this morning. His renal ultrasound revealed no evidence of hydronephrosis. He is nonoliguric. Urine output of greater than 4 L in the last 24 hours. Patient presented to the hospital with altered mental status and generalized weakness. Unable to obtain further history at this time. Vital signs are stable. General: The patient appeared well nourished and normally developed. HEENT: Head exam is unremarkable. Neck is without jugular venous distension. LUNGS: Lungs are clear to auscultation and percussion. Breath sounds decreased. HEART: Rate and Rhythm are regular. First and second heart sounds normal. No murmurs, rubs or gallops. ABDOMEN: Abdominal exam reveals normal bowel sounds. Non-tender and non- distended. No evidence of peritonitis. EXTREMITITES: No clubbing, cyanosis, or edema. Past Medical History Past Medical History: COPD, CVA/TIA, GERD/Reflux, Hypertension, Seizure Disorder Additional Past Medical History / Comment(s): LAST SEIZURE 08/2016, HX BLOOD IN STOOL, LEFT SIDED WEAKNESS R/T CVA, Brain Shunt, currently tied; does not feel anything on the right side, right leg and arm very weaker - much weaker than the left side; legally blind in the right eye, pain in left shoulder from previous surgery in 2013 History of Any Multi-Drug Resistant Organisms: None Reported Past Surgical History: Cholecystectomy, Orthopedic Surgery Additional Past Surgical History / Comment(s): LEFT SHOULDER RECENT SX, LIBRA KNEE , RT ARM, STATES HAD A "BAD STAPH INFECTION YEARS AGO IN ONE KNEE", UNSURE IF MRSA, 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. Past Anesthesia/Blood Transfusion Reactions: No Reported Reaction Past Psychological History: ADD/ADHD, Anxiety Smoking Status: Former smoker Past Alcohol Use History: Abuse, Heavy Additional Past Alcohol Use History / Comment(s): PATIENT STATES HE IS AN ALCHOHOLIC, Past Drug Use History: None Reported - Past Family History Father History Unknown: Yes Additional Family Medical History / Comment(s): Pt is adopted Medications and Allergies Home Medications Medication Instructions Recorded Confirmed Type oxyCODONE-APAP 10-325MG [Percocet 1 tab PO Q6H 04/16/15 02/13/17 History 10-325 mg] ALPRAZolam [Xanax] 0.25 mg PO Q6HR PRN 11/24/15 02/13/17 History Acetaminophen Tab [Tylenol] 500 mg PO Q6H PRN 11/24/15 02/13/17 History Diltiazem Cd [Cardizem CD] 120 mg PO DAILY@0600 11/24/15 02/13/17 History Metoprolol Tartrate [Lopressor] 50 mg PO BID@0600,1800 11/24/15 02/13/17 History Pravastatin Sodium [Pravachol] 40 mg PO HS 11/24/15 02/13/17 History Temazepam [Restoril] 30 mg PO HS 11/24/15 02/13/17 History guaiFENesin SYRUP 100MG/5ML 200 mg PO Q6HR PRN 11/24/15 02/13/17 History [Robitussin] levETIRAcetam 750 mg PO BID@0600,1800 11/24/15 02/13/17 History Ferrous Sulfate [Iron (65 MG 325 mg PO BID@0600,1800 12/16/15 02/13/17 History Elemental)] Warfarin Sodium [Coumadin] 3 mg PO HS 12/16/15 02/13/17 History Gabapentin [Neurontin] 600 mg PO DAILY@1800 11/16/16 02/13/17 History Dextroamphetamine/Amphetamine 10 mg PO BID@0600,1200 02/13/17 02/13/17 History [Adderall] Docusate [Colace] 100 mg PO DAILY PRN 02/13/17 02/13/17 History Lisinopril [Zestril] 2.5 mg PO DAILY@0600 02/13/17 02/13/17 History Pantoprazole [Protonix] 40 mg PO DAILY@0600 02/13/17 02/13/17 History Allergies Allergy/AdvReac Type Severity Reaction Status Date / Time codeine AdvReac Nausea & Verified 02/13/17 14:43 Vomiting Physical Exam Vitals: Vital Signs Temp Pulse Resp BP Pulse Ox 02/14/17 08:00 120 H 50 H 120/74 95 02/14/17 07:00 120 H 17 111/66 95 02/14/17 06:00 119 H 17 119/77 92 L 02/14/17 05:00 115 H 17 108/74 93 L 02/14/17 04:00 98.6 F 114 H 16 120/76 95 02/14/17 03:00 116 H 34 H 101/55 95 02/14/17 02:00 108 H 16 135/67 93 L 02/14/17 01:00 104 H 16 128/62 93 L 02/14/17 00:00 100 15 106/61 97 02/13/17 23:00 97 21 142/68 99 02/13/17 22:30 95 12 126/67 98 02/13/17 22:00 95 13 116/64 99 02/13/17 21:30 93 12 95/60 99 02/13/17 21:00 92 12 93/53 100 02/13/17 20:30 90 12 85/45 98 02/13/17 20:00 90 13 90/57 100 02/13/17 19:30 88 14 101/53 96 02/13/17 19:00 85 11 L 94/64 97 02/13/17 18:30 86 12 98/59 99 02/13/17 18:00 98.4 F 84 16 84/56 100 02/13/17 17:52 85 02/13/17 17:30 78 18 96/55 100 02/13/17 17:10 98.9 F 78 16 100/59 100 02/13/17 16:37 80 16 99/58 99 02/13/17 16:22 78 16 92/55 100 02/13/17 16:07 78 16 85/51 100 02/13/17 15:52 76 18 89/50 99 02/13/17 15:37 76 16 91/50 100 02/13/17 15:22 74 16 92/57 100 02/13/17 15:07 74 16 90/60 100 02/13/17 14:52 74 14 97/59 100 02/13/17 14:30 72 16 93/54 100 02/13/17 14:15 73 14 83/51 100 02/13/17 14:00 72 18 97/53 99 02/13/17 13:30 80 14 84/51 99 02/13/17 13:00 82 18 82/50 97 02/13/17 12:45 70 22 78/49 99 02/13/17 12:30 98.5 F 72 14 81/46 95 Intake and Output 02/13/17 02/14/17 02/14/17 22:59 06:59 14:59 Intake Total 725 2100 250 Output Total 2375 2375 400 Balance -7730 275 -150 Intake: IV 625 1000 250 Dextrose 5% in Water 1, 125 1000 250 000 ml @ 125 mls/hr IV . Q9H12M MO with Sodium Bicarb (1 Meq/ml) 150 ml Rx#:[id number] Water For Injection, 500 Sterile 1,000 ml @ 125 mls/hr IV .Q8H36M MO with Sodium Acetate 150 meq Rx#:[id number] Intake, IV Titration 100 1100 Amount Potassium Phosphate 10 100 mmol In Sodium Chloride 0 .9% 250 ml @ 125 mls/hr IV Q2H MO Rx#:[id number] Sodium Chloride 0.9% 1, 1000 000 ml @ 999 mls/hr IV . Q1H1M STA Rx#:[id number] levETIRAcetam IV 750 mg 100 In Sodium Chloride 0.9% 100 ml @ 215 mls/hr IVPB Q12HR MO Rx#:[id number] Output: Urine 2375 2375 400 Uretheral (Jean Baptiste) 500 Other: Voiding Method Indwelling Catheter Indwelling Catheter # Bowel Movements 1 Weight 90.718 kg 88.7 kg Results - Lab Results Most recent lab results Calcium 7.5 mg/dL (8.4-10.2) L 02/14/17 05:05 Phosphorus 1.8 mg/dL (2.5-4.5) L 02/14/17 05:05 Magnesium 1.8 mg/dL (1.6-2.3) 02/14/17 05:05 02/14/17 05:05 02/14/17 05:05 Assessment and Plan Plan: Assessment: #1. Nonoliguric acute kidney injury mostly prerenal in nature secondary to hypotension. Improving. Creatinine was 7.2 on admission and is down to 2.0 today. No evidence of hydronephrosis on renal ultrasound. #2. Metabolic acidosis secondary to acute kidney injury. Improving. #3. Anemia. Rule out iron deficiency. #4. History of alcohol abuse. Currently maintained on CIWA protocol. #5. Transaminitis related to hypoperfusion due to hypotension. Improving. #6. Hyperkalemia on admission secondary to acute kidney injury and metabolic acidosis. Resolved. Plan: Decrease rate of isotonic sodium bicarbonate drip to 80 mL an hour. Check iron studies. Avoid nephrotoxic agents and hypotensive episodes. JENSEN inhibitor held for now. Repeat electrolytes in the morning. Thank you for the consultation. I will continue to follow the patient with you during his hospital stay.
[2017-02-14] MEDS: LACTULOSE 20 GM/30 ML CUP PO SCH ×4 (10:43→22:45)
[2017-02-14 10:53] LABS: Hemoglobin A1C 5.3 % (4.2-6.1)
[2017-02-14] MEDS ORDERED: HEPARIN SODIUM,PORCINE 5,000 UNIT/ML 1 ML VIAL IV PRN (11:59)
[2017-02-14] MEDS ORDERED: HEPARIN SODIUM,PORCINE 5,000 UNIT/ML 1 ML VIAL IV ONE (11:59)
[2017-02-14] MEDS ORDERED: HEPARIN SODIUM,PORCINE/D5W PMX 25,000 UNIT in DEXTROSE/WATER 1 500ML.BAG IV SCH (12:00)
--- NOTE | 2017-02-14 12:10 | P.HPIM ---
History of Present Illness H&P Date: 02/14/17 Chief Complaint: Mental status change Patient is very lethargic and is unable to provide any medical history. Most of the medical history was obtained by chart review and nursing staff report. This is a 46-year-old gentleman well-known to me with past medical history of a large MRI 6 stroke in 2014 with midline shift requiring hemicraniotomy and a large neurosurgical intervention with subsequent placement of a chronic [employer] shunt that is usually dependent on his for his care and has chronic right- sided hemiparesis. Patient was brought into the emergency room with after mental status and was found to be almost obtunded. It is known that the patient is alcoholic and drink alcohol on a daily basis. In the emergency room he was found to be hypotensive with evidence of kidney and liver shock. Patient was resuscitated with IV fluids aggressively and his blood pressure improved. His creatinine started trending down as well as his liver function. He was still showing evidence of alcohol withdrawal this morning requiring IV Ativan for which he appeared very lethargic upon my assessment. He had evidence of bruising involving around his right eye as well as other part of his body and nursing staff informed me that he is having frequent falls in the recent past. He is currently in the intensive care unit for close monitoring. Review of Systems Unable to review other systems given her current mental status Past Medical History Past Medical History: COPD, CVA/TIA, GERD/Reflux, Hypertension, Seizure Disorder Additional Past Medical History / Comment(s): LAST SEIZURE 08/2016, HX BLOOD IN STOOL, LEFT SIDED WEAKNESS R/T CVA, Brain Shunt, currently tied; does not feel anything on the right side, right leg and arm very weaker - much weaker than the left side; legally blind in the right eye, pain in left shoulder from previous surgery in 2013 History of Any Multi-Drug Resistant Organisms: None Reported Past Surgical History: Cholecystectomy, Orthopedic Surgery Additional Past Surgical History / Comment(s): LEFT SHOULDER RECENT SX, LIBRA KNEE , RT ARM, STATES HAD A "BAD STAPH INFECTION YEARS AGO IN ONE KNEE", UNSURE IF MRSA, vp compliance shunt, bone removed and replaced in his skull at [facility]. Past Anesthesia/Blood Transfusion Reactions: No Reported Reaction Past Psychological History: ADD/ADHD, Anxiety Smoking Status: Former smoker Past Alcohol Use History: Abuse, Heavy Additional Past Alcohol Use History / Comment(s): PATIENT STATES HE IS AN ALCHOHOLIC, Past Drug Use History: None Reported - Past Family History Father History Unknown: Yes Additional Family Medical History / Comment(s): Pt is adopted Medications and Allergies Home Medications Medication Instructions Recorded Confirmed Type oxyCODONE-APAP 10-325MG [Percocet 1 tab PO Q6H 04/16/15 02/13/17 History 10-325 mg] ALPRAZolam [Xanax] 0.25 mg PO Q6HR PRN 11/24/15 02/13/17 History Acetaminophen Tab [Tylenol] 500 mg PO Q6H PRN 11/24/15 02/13/17 History Diltiazem Cd [Cardizem CD] 120 mg PO DAILY@0600 11/24/15 02/13/17 History Metoprolol Tartrate [Lopressor] 50 mg PO BID@0600,1800 11/24/15 02/13/17 History Pravastatin Sodium [Pravachol] 40 mg PO HS 11/24/15 02/13/17 History Temazepam [Restoril] 30 mg PO HS 11/24/15 02/13/17 History guaiFENesin SYRUP 100MG/5ML 200 mg PO Q6HR PRN 11/24/15 02/13/17 History [Robitussin] levETIRAcetam 750 mg PO BID@0600,1800 11/24/15 02/13/17 History Ferrous Sulfate [Iron (65 MG 325 mg PO BID@0600,1800 12/16/15 02/13/17 History Elemental)] Warfarin Sodium [Coumadin] 3 mg PO HS 12/16/15 02/13/17 History Gabapentin [Neurontin] 600 mg PO DAILY@1800 11/16/16 02/13/17 History Dextroamphetamine/Amphetamine 10 mg PO BID@0600,1200 02/13/17 02/13/17 History [Adderall] Docusate [Colace] 100 mg PO DAILY PRN 02/13/17 02/13/17 History Lisinopril [Zestril] 2.5 mg PO DAILY@0600 02/13/17 02/13/17 History Pantoprazole [Protonix] 40 mg PO DAILY@0600 02/13/17 02/13/17 History Allergies Allergy/AdvReac Type Severity Reaction Status Date / Time codeine AdvReac Nausea & Verified 02/13/17 14:43 Vomiting Physical Exam Vitals: Vital Signs Temp Pulse Resp BP Pulse Ox 02/14/17 11:00 116 H 20 127/84 91 L 02/14/17 10:30 119 H 21 142/88 91 L 02/14/17 10:00 119 H 18 155/80 92 L 02/14/17 09:30 125 H 19 165/74 94 L 02/14/17 09:00 123 H 19 140/79 92 L 02/14/17 08:30 119 H 22 168/70 95 02/14/17 08:00 120 H 19 120/74 95 02/14/17 07:00 120 H 17 111/66 95 02/14/17 06:00 119 H 17 119/77 92 L 02/14/17 05:00 115 H 17 108/74 93 L 02/14/17 04:00 98.6 F 114 H 16 120/76 95 02/14/17 03:00 116 H 34 H 101/55 95 02/14/17 02:00 108 H 16 135/67 93 L 02/14/17 01:00 104 H 16 128/62 93 L 02/14/17 00:00 100 15 106/61 97 02/13/17 23:00 97 21 142/68 99 02/13/17 22:30 95 12 126/67 98 02/13/17 22:00 95 13 116/64 99 02/13/17 21:30 93 12 95/60 99 02/13/17 21:00 92 12 93/53 100 02/13/17 20:30 90 12 85/45 98 02/13/17 20:00 90 13 90/57 100 02/13/17 19:30 88 14 101/53 96 02/13/17 19:00 85 11 L 94/64 97 02/13/17 18:30 86 12 98/59 99 02/13/17 18:00 98.4 F 84 16 84/56 100 02/13/17 17:52 85 02/13/17 17:30 78 18 96/55 100 02/13/17 17:10 98.9 F 78 16 100/59 100 02/13/17 16:37 80 16 99/58 99 02/13/17 16:22 78 16 92/55 100 02/13/17 16:07 78 16 85/51 100 02/13/17 15:52 76 18 89/50 99 02/13/17 15:37 76 16 91/50 100 02/13/17 15:22 74 16 92/57 100 02/13/17 15:07 74 16 90/60 100 02/13/17 14:52 74 14 97/59 100 02/13/17 14:30 72 16 93/54 100 02/13/17 14:15 73 14 83/51 100 02/13/17 14:00 72 18 97/53 99 02/13/17 13:30 80 14 84/51 99 02/13/17 13:00 82 18 82/50 97 02/13/17 12:45 70 22 78/49 99 02/13/17 12:30 98.5 F 72 14 81/46 95 Intake and Output 02/13/17 02/14/17 02/14/17 22:59 06:59 14:59 Intake Total 725 2100 1075 Output Total 2375 2375 900 Balance -1650 -275 175 Intake: IV 625 1000 625 Dextrose 5% in Water 1, 125 1000 625 000 ml @ 125 mls/hr IV . Q9H12M MO with Sodium Bicarb (1 Meq/ml) 150 ml Rx#:[id number] Water For Injection, 500 Sterile 1,000 ml @ 125 mls/hr IV .Q8H36M MO with Sodium Acetate 150 meq Rx#:[id number] Intake, IV Titration 100 1100 450 Amount Magnesium Sulfate-D5w Pmx 200 1 gm In Dextrose/Water 1 100ml.bag @ 100 mls/hr IVPB Q1H MO Rx#: [id number] Potassium Phosphate 10 100 250 mmol In Sodium Chloride 0 .9% 250 ml @ 125 mls/hr IV Q2H MO Rx#:[id number] Sodium Chloride 0.9% 1, 1000 000 ml @ 999 mls/hr IV . Q1H1M STA Rx#:[id number] levETIRAcetam IV 750 mg 100 In Sodium Chloride 0.9% 100 ml @ 215 mls/hr IVPB Q12HR MO Rx#:[id number] Output: Urine 2375 2375 900 Uretheral (Jean Baptiste) 500 Other: Voiding Method Indwelling Catheter Indwelling Catheter Indwelling Catheter # Bowel Movements 1 Weight 90.718 kg 88.7 kg 88.7 kg Patient Weight 02/15/17 06:59 Weight 88.7 kg General: The patient is almost obtunded and only arousable to sternal rub. He was unable to answer any of my questions. He is not following any commands. Eye: there is evidence of bruising around the right eye. Neck: The neck is supple, there is no JVD. Cardiovascular: Normal S1-S2, no S3-S4, no murmurs. Respiratory: Lungs clear to auscultation bilaterally Gastrointestinal: Abdomen is soft, nontender Musculoskeletal: There is +1 pedal edema. Skin: Skin is warm and dry Results CBC & Chem 7: 02/14/17 05:05 02/14/17 05:05 Labs: Abnormal Lab Results - Last 24 Hours (Table) 02/13/17 02/13/17 02/13/17 Range/Units 12:35 12:35 12:35 WBC (3.8-10.6) k/uL RBC 3.19 L (4.30-5.90) m/uL Hgb 9.1 L (13.0-17.5) gm/dL Hct 30.9 L (39.0-53.0) % MCHC 29.4 L (31.0-37.0) g/dL RDW 19.5 H (11.5-15.5) % Plt Count (150-450) k/uL Lymphocytes # 0.6 L (1.0-4.8) k/uL PT (9.0-12.0) sec INR (<1.1) APTT (22.0-30.0) sec Sodium 132 L (137-145) mmol/L Potassium 5.8 H (3.5-5.1) mmol/L Chloride (98-107) mmol/L Carbon Dioxide 9 L* (22-30) mmol/L BUN 63 H (9-20) mg/dL Creatinine 7.22 H* (0.66-1.25) mg/dL Glucose 100 H (74-99) mg/dL POC Glucose (mg/dL) (75-99) mg/dL Calcium 7.8 L (8.4-10.2) mg/dL Phosphorus (2.5-4.5) mg/dL Total Bilirubin (0.2-1.3) mg/dL AST 1187 H (17-59) U/L ALT 1718 H (21-72) U/L Ammonia (<30) umol/L Total Creatine Kinase 394 H (55-170) U/L CK-MB (CK-2) 5.4 H* (0.0-2.4) ng/mL Total Protein 5.9 L (6.3-8.2) g/dL Albumin 3.2 L (3.5-5.0) g/dL Lipase (23-300) U/L Urine Protein (Negative) Urine Blood (Negative) Urine RBC (0-5) /hpf Urine WBC (0-5) /hpf Hyaline Casts (0-2) /lpf Urine Mucus (None) /hpf Urine Opiates Screen (NotDetected) Ur Oxycodone Screen (NotDetected) U Tricyclic Antidepress (NotDetected) U Benzodiazepines Scrn (NotDetected) 02/13/17 02/13/17 02/13/17 Range/Units 12:35 12:35 12:42 WBC (3.8-10.6) k/uL RBC (4.30-5.90) m/uL Hgb (13.0-17.5) gm/dL Hct (39.0-53.0) % MCHC (31.0-37.0) g/dL RDW (11.5-15.5) % Plt Count (150-450) k/uL Lymphocytes # (1.0-4.8) k/uL PT >130.0 H (9.0-12.0) sec INR >10.0 H* (<1.1) APTT 83.8 H (22.0-30.0) sec Sodium (137-145) mmol/L Potassium (3.5-5.1) mmol/L Chloride (98-107) mmol/L Carbon Dioxide (22-30) mmol/L BUN (9-20) mg/dL Creatinine (0.66-1.25) mg/dL Glucose (74-99) mg/dL POC Glucose (mg/dL) 106 H (75-99) mg/dL Calcium (8.4-10.2) mg/dL Phosphorus (2.5-4.5) mg/dL Total Bilirubin (0.2-1.3) mg/dL AST (17-59) U/L ALT (21-72) U/L Ammonia 62 H (<30) umol/L Total Creatine Kinase (55-170) U/L CK-MB (CK-2) (0.0-2.4) ng/mL Total Protein (6.3-8.2) g/dL Albumin (3.5-5.0) g/dL Lipase (23-300) U/L Urine Protein (Negative) Urine Blood (Negative) Urine RBC (0-5) /hpf Urine WBC (0-5) /hpf Hyaline Casts (0-2) /lpf Urine Mucus (None) /hpf Urine Opiates Screen (NotDetected) Ur Oxycodone Screen (NotDetected) U Tricyclic Antidepress (NotDetected) U Benzodiazepines Scrn (NotDetected) 02/13/17 02/13/17 02/13/17 Range/Units 12:50 21:32 21:32 WBC (3.8-10.6) k/uL RBC (4.30-5.90) m/uL Hgb (13.0-17.5) gm/dL Hct (39.0-53.0) % MCHC (31.0-37.0) g/dL RDW (11.5-15.5) % Plt Count (150-450) k/uL Lymphocytes # (1.0-4.8) k/uL PT (9.0-12.0) sec INR (<1.1) APTT (22.0-30.0) sec Sodium 136 L (137-145) mmol/L Potassium (3.5-5.1) mmol/L Chloride 111 H (98-107) mmol/L Carbon Dioxide 11 L (22-30) mmol/L BUN 56 H (9-20) mg/dL Creatinine 4.10 H (0.66-1.25) mg/dL Glucose 104 H (74-99) mg/dL POC Glucose (mg/dL) (75-99) mg/dL Calcium 7.0 L (8.4-10.2) mg/dL Phosphorus (2.5-4.5) mg/dL Total Bilirubin (0.2-1.3) mg/dL AST 641 H (17-59) U/L ALT 1292 H (21-72) U/L Ammonia 34 H (<30) umol/L Total Creatine Kinase (55-170) U/L CK-MB (CK-2) (0.0-2.4) ng/mL Total Protein 4.8 L (6.3-8.2) g/dL Albumin 2.6 L (3.5-5.0) g/dL Lipase (23-300) U/L Urine Protein 1+ H (Negative) Urine Blood Large H (Negative) Urine RBC >182 H (0-5) /hpf Urine WBC 6 H (0-5) /hpf Hyaline Casts 4 H (0-2) /lpf Urine Mucus Rare H (None) /hpf Urine Opiates Screen Detected H (NotDetected) Ur Oxycodone Screen Detected H (NotDetected) U Tricyclic Antidepress Detected H (NotDetected) U Benzodiazepines Scrn Detected H (NotDetected) 02/13/17 02/13/17 02/14/17 Range/Units 21:50 21:51 01:55 WBC 3.3 L (3.8-10.6) k/uL RBC 2.68 L (4.30-5.90) m/uL Hgb 7.7 L (13.0-17.5) gm/dL Hct 26.7 L (39.0-53.0) % MCHC 28.8 L (31.0-37.0) g/dL RDW 19.0 H (11.5-15.5) % Plt Count 143 L (150-450) k/uL Lymphocytes # 0.6 L (1.0-4.8) k/uL PT 31.3 H (9.0-12.0) sec INR (<1.1) APTT 34.7 H (22.0-30.0) sec Sodium (137-145) mmol/L Potassium (3.5-5.1) mmol/L Chloride (98-107) mmol/L Carbon Dioxide (22-30) mmol/L BUN (9-20) mg/dL Creatinine (0.66-1.25) mg/dL Glucose (74-99) mg/dL POC Glucose (mg/dL) 157 H (75-99) mg/dL Calcium (8.4-10.2) mg/dL Phosphorus (2.5-4.5) mg/dL Total Bilirubin (0.2-1.3) mg/dL AST (17-59) U/L ALT (21-72) U/L Ammonia (<30) umol/L Total Creatine Kinase (55-170) U/L CK-MB (CK-2) (0.0-2.4) ng/mL Total Protein (6.3-8.2) g/dL Albumin (3.5-5.0) g/dL Lipase (23-300) U/L Urine Protein (Negative) Urine Blood (Negative) Urine RBC (0-5) /hpf Urine WBC (0-5) /hpf Hyaline Casts (0-2) /lpf Urine Mucus (None) /hpf Urine Opiates Screen (NotDetected) Ur Oxycodone Screen (NotDetected) U Tricyclic Antidepress (NotDetected) U Benzodiazepines Scrn (NotDetected) 02/14/17 02/14/17 02/14/17 Range/Units 05:05 05:05 05:05 WBC 3.3 L (3.8-10.6) k/uL RBC 2.44 L (4.30-5.90) m/uL Hgb 7.1 L (13.0-17.5) gm/dL Hct 23.0 L (39.0-53.0) % MCHC 30.7 L (31.0-37.0) g/dL RDW 19.7 H (11.5-15.5) % Plt Count (150-450) k/uL Lymphocytes # 0.3 L (1.0-4.8) k/uL PT 14.8 H (9.0-12.0) sec INR (<1.1) APTT (22.0-30.0) sec Sodium (137-145) mmol/L Potassium (3.5-5.1) mmol/L Chloride 112 H (98-107) mmol/L Carbon Dioxide 17 L (22-30) mmol/L BUN 38 H (9-20) mg/dL Creatinine 2.00 H (0.66-1.25) mg/dL Glucose 150 H (74-99) mg/dL POC Glucose (mg/dL) (75-99) mg/dL Calcium 7.5 L (8.4-10.2) mg/dL Phosphorus 1.8 L (2.5-4.5) mg/dL Total Bilirubin 1.4 H (0.2-1.3) mg/dL AST 339 H (17-59) U/L ALT 1086 H (21-72) U/L Ammonia (<30) umol/L Total Creatine Kinase (55-170) U/L CK-MB (CK-2) (0.0-2.4) ng/mL Total Protein 4.5 L (6.3-8.2) g/dL Albumin 2.5 L (3.5-5.0) g/dL Lipase 884 H (23-300) U/L Urine Protein (Negative) Urine Blood (Negative) Urine RBC (0-5) /hpf Urine WBC (0-5) /hpf Hyaline Casts (0-2) /lpf Urine Mucus (None) /hpf Urine Opiates Screen (NotDetected) Ur Oxycodone Screen (NotDetected) U Tricyclic Antidepress (NotDetected) U Benzodiazepines Scrn (NotDetected) 02/14/17 Range/Units 06:06 WBC (3.8-10.6) k/uL RBC (4.30-5.90) m/uL Hgb (13.0-17.5) gm/dL Hct (39.0-53.0) % MCHC (31.0-37.0) g/dL RDW (11.5-15.5) % Plt Count (150-450) k/uL Lymphocytes # (1.0-4.8) k/uL PT (9.0-12.0) sec INR (<1.1) APTT (22.0-30.0) sec Sodium (137-145) mmol/L Potassium (3.5-5.1) mmol/L Chloride (98-107) mmol/L Carbon Dioxide (22-30) mmol/L BUN (9-20) mg/dL Creatinine (0.66-1.25) mg/dL Glucose (74-99) mg/dL POC Glucose (mg/dL) 179 H (75-99) mg/dL Calcium (8.4-10.2) mg/dL Phosphorus (2.5-4.5) mg/dL Total Bilirubin (0.2-1.3) mg/dL AST (17-59) U/L ALT (21-72) U/L Ammonia (<30) umol/L Total Creatine Kinase (55-170) U/L CK-MB (CK-2) (0.0-2.4) ng/mL Total Protein (6.3-8.2) g/dL Albumin (3.5-5.0) g/dL Lipase (23-300) U/L Urine Protein (Negative) Urine Blood (Negative) Urine RBC (0-5) /hpf Urine WBC (0-5) /hpf Hyaline Casts (0-2) /lpf Urine Mucus (None) /hpf Urine Opiates Screen (NotDetected) Ur Oxycodone Screen (NotDetected) U Tricyclic Antidepress (NotDetected) U Benzodiazepines Scrn (NotDetected) Microbiology - Last 24 Hours (Table) 02/13/17 20:50 Urine Culture - Preliminary Urine,Catheterized Thrombosis Risk Factor Assmnt - Choose All That Apply Each Factor Represents 1 point: Age 41-60 years, Medical pt on bed rest Thrombosis Risk Factor Assessment Total Risk Factor Score: 2 Thrombosis Risk Factor Assessment Level: Low Risk Assessment and Plan Plan: 1. Acute kidney injury 2. Acute liver failure with transaminitis 3. Acute encephalopathy secondary to #1 and 2 4. Sepsis with septic shock 5. Urinary tract infection 6. Supratherapeutic INR 7. History of large bilateral stroke with midline shift status post hemicraniotomy on 04/16/2015 and [employer] shunt placement in August 2015. patient is following closely with neurology/neurosurgery as an outpatient 8. Protein C deficiency 9. Underlying patent foramen ovale with [id number] shunt: continue Coumadin for anticoagulation 10. Alcohol abuse 11. Seizure disorder: Maintained on Keppra 12. Hypertension 13. ADHD: maintained on Adderral 10 mg twice a day at home This is a 46-year-old gentleman with a very complex past medical history noted above who presented to the hospital with evidence of sepsis with septic shock as well as dehydration and intravascular depletion. He had multiple and organ damage involving acute kidney and acute liver failure. His overall condition is very guarded. He was resuscitated adequately with IV fluid. Blood pressure within acceptable range. He is currently in the intensive care unit. Patient will be started on IV heparin given underlying protein C deficiency and underlying patent foramen. We will continue ICU care otherwise. Kidney and liver function improving gradually. Sitter at bedside. Repeat lab work in the morning.
[2017-02-14 12:34] LABS: Glucose,Whole Blood 164 mg/dL (75-99)
[2017-02-14] MEDS: THIAMINE 100 MG TAB PO SCH ×2 (13:28→16:38)
--- NOTE | 2017-02-14 13:28 | P.CNPUL ---
History of Present Illness Consult date: 02/14/17 Requesting physician: Camelia Clarke Reason for consult: other ( acute metabolic encephalopathy) Chief complaint: Mental status change History of present illness: This is a 46-year-old white male, alcohol, history of previous CVA in 2014, with midline shift requiring hemicraniotomy and subsequent chronic [employer] shunt placement. Patient sustained chronic right-sided hemiparesis. Patient was brought into the ER with mostly mental status change and up on the patient. Upon presentation to the ER, patient was found to have hypotension, there was also evidence of significant abnormal labs including shock liver and acute renal failure. Patient was resuscitated with IV fluids aggressively, blood pressure was noted to improve. His renal profile and liver profile were noted to trend down patient was eventually admitted to the intensive care unit, and I was asked to see him on consultation. Not much information was obtained from the patient as he is a poor historian, but all the information was obtained from the chart. Labs up on admission showed a low hemoglobin of 7.7, INR of 3.2 , BUN of 56 and creatinine of 4.10, elevated transaminases with AST of 641 ALT of 1292, amylase of 884, ammonia level of 34, lactic acid of 1.4. Urine showed evidence of hematuria and slight bacteriuria drug screen was positive for opiates, oxycodone, try cyclic antidepressants, and benzodiazepines. Considering the presentation and considering the patient had to be admitted to the intensive care unit, I was asked to see him on consultation. Again the patient is an extremely poor historian. Review of Systems ROS unobtainable: due to mental status (No review of system couldn't be obtained from the patient.) Past Medical History Past Medical History: COPD, CVA/TIA, GERD/Reflux, Hypertension, Seizure Disorder Additional Past Medical History / Comment(s): LAST SEIZURE 08/2016, HX BLOOD IN STOOL, LEFT SIDED WEAKNESS R/T CVA, Brain Shunt, currently tied; does not feel anything on the right side, right leg and arm very weaker - much weaker than the left side; legally blind in the right eye, pain in left shoulder from previous surgery in 2013 History of Any Multi-Drug Resistant Organisms: None Reported Past Surgical History: Cholecystectomy, Orthopedic Surgery Additional Past Surgical History / Comment(s): LEFT SHOULDER RECENT SX, LIBRA KNEE , RT ARM, STATES HAD A "BAD STAPH INFECTION YEARS AGO IN ONE KNEE", UNSURE IF MRSA, 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 Past Anesthesia/Blood Transfusion Reactions: No Reported Reaction Past Psychological History: ADD/ADHD, Anxiety Smoking Status: Former smoker Past Alcohol Use History: Abuse, Heavy Additional Past Alcohol Use History / Comment(s): PATIENT STATES HE IS AN ALCHOHOLIC, Past Drug Use History: None Reported - Past Family History Father History Unknown: Yes Additional Family Medical History / Comment(s): Pt is adopted Medications and Allergies Home Medications Medication Instructions Recorded Confirmed Type oxyCODONE-APAP 10-325MG [Percocet 1 tab PO Q6H 04/16/15 02/13/17 History 10-325 mg] ALPRAZolam [Xanax] 0.25 mg PO Q6HR PRN 11/24/15 02/13/17 History Acetaminophen Tab [Tylenol] 500 mg PO Q6H PRN 11/24/15 02/13/17 History Diltiazem Cd [Cardizem CD] 120 mg PO DAILY@0600 11/24/15 02/13/17 History Metoprolol Tartrate [Lopressor] 50 mg PO BID@0600,1800 11/24/15 02/13/17 History Pravastatin Sodium [Pravachol] 40 mg PO HS 11/24/15 02/13/17 History Temazepam [Restoril] 30 mg PO HS 11/24/15 02/13/17 History guaiFENesin SYRUP 100MG/5ML 200 mg PO Q6HR PRN 11/24/15 02/13/17 History [Robitussin] levETIRAcetam 750 mg PO BID@0600,1800 11/24/15 02/13/17 History Ferrous Sulfate [Iron (65 MG 325 mg PO BID@0600,1800 12/16/15 02/13/17 History Elemental)] Warfarin Sodium [Coumadin] 3 mg PO HS 12/16/15 02/13/17 History Gabapentin [Neurontin] 600 mg PO DAILY@1800 11/16/16 02/13/17 History Dextroamphetamine/Amphetamine 10 mg PO BID@0600,1200 02/13/17 02/13/17 History [Adderall] Docusate [Colace] 100 mg PO DAILY PRN 02/13/17 02/13/17 History Lisinopril [Zestril] 2.5 mg PO DAILY@0600 02/13/17 02/13/17 History Pantoprazole [Protonix] 40 mg PO DAILY@0600 02/13/17 02/13/17 History Allergies Allergy/AdvReac Type Severity Reaction Status Date / Time codeine AdvReac Nausea & Verified 02/13/17 14:43 Vomiting Physical Exam Vitals: Vital Signs Temp Pulse Resp BP Pulse Ox 02/14/17 12:00 98.4 F 114 H 25 H 140/87 93 L 02/14/17 11:30 112 H 19 152/92 93 L 02/14/17 11:00 116 H 20 127/84 91 L 02/14/17 10:30 119 H 21 142/88 91 L 02/14/17 10:00 119 H 18 155/80 92 L 02/14/17 09:30 125 H 19 165/74 94 L 02/14/17 09:00 123 H 19 140/79 92 L 02/14/17 08:30 119 H 22 168/70 95 02/14/17 08:00 120 H 19 120/74 95 02/14/17 07:00 120 H 17 111/66 95 02/14/17 06:00 119 H 17 119/77 92 L 02/14/17 05:00 115 H 17 108/74 93 L 02/14/17 04:00 98.6 F 114 H 16 120/76 95 02/14/17 03:00 116 H 34 H 101/55 95 02/14/17 02:00 108 H 16 135/67 93 L 02/14/17 01:00 104 H 16 128/62 93 L 02/14/17 00:00 100 15 106/61 97 02/13/17 23:00 97 21 142/68 99 02/13/17 22:30 95 12 126/67 98 02/13/17 22:00 95 13 116/64 99 02/13/17 21:30 93 12 95/60 99 02/13/17 21:00 92 12 93/53 100 02/13/17 20:30 90 12 85/45 98 02/13/17 20:00 90 13 90/57 100 02/13/17 19:30 88 14 101/53 96 02/13/17 19:00 85 11 L 94/64 97 02/13/17 18:30 86 12 98/59 99 02/13/17 18:00 98.4 F 84 16 84/56 100 02/13/17 17:52 85 02/13/17 17:30 78 18 96/55 100 02/13/17 17:10 98.9 F 78 16 100/59 100 02/13/17 16:37 80 16 99/58 99 02/13/17 16:22 78 16 92/55 100 02/13/17 16:07 78 16 85/51 100 02/13/17 15:52 76 18 89/50 99 02/13/17 15:37 76 16 91/50 100 02/13/17 15:22 74 16 92/57 100 02/13/17 15:07 74 16 90/60 100 02/13/17 14:52 74 14 97/59 100 02/13/17 14:30 72 16 93/54 100 02/13/17 14:15 73 14 83/51 100 02/13/17 14:00 72 18 97/53 99 02/13/17 13:30 80 14 84/51 99 Intake and Output 02/13/17 02/14/17 02/14/17 22:59 06:59 14:59 Intake Total 725 2100 1360 Output Total 2375 2375 1000 Balance -1650 -275 360 Intake: IV 625 1000 660 Dextrose 5% in Water 1, 125 1000 660 000 ml @ 125 mls/hr IV . Q9H12M MO with Sodium Bicarb (1 Meq/ml) 150 ml Rx#:[id number] Water For Injection, 500 Sterile 1,000 ml @ 125 mls/hr IV .Q8H36M MO with Sodium Acetate 150 meq Rx#:[id number] Intake, IV Titration 100 1100 700 Amount Magnesium Sulfate-D5w Pmx 200 1 gm In Dextrose/Water 1 100ml.bag @ 100 mls/hr IVPB Q1H MO Rx#: [id number] Potassium Phosphate 10 100 500 mmol In Sodium Chloride 0 .9% 250 ml @ 125 mls/hr IV Q2H MO Rx#:[id number] Sodium Chloride 0.9% 1, 1000 000 ml @ 999 mls/hr IV . Q1H1M STA Rx#:[id number] levETIRAcetam IV 750 mg 100 In Sodium Chloride 0.9% 100 ml @ 215 mls/hr IVPB Q12HR [facility] Rx#:[id number] Output: Urine 2375 2375 1000 Uretheral (Jean Baptiste) 500 Other: Voiding Method Indwelling Catheter Indwelling Catheter Indwelling Catheter # Bowel Movements 1 Weight 90.718 kg 88.7 kg 88.7 kg Patient Weight 02/15/17 06:59 Weight 88.7 kg Physical Exam: Revealed a 46-year-old white male, confused, slightly open did, unable to follow simple instructions and answer very simple questions. Speech was noted to be garbled. HEENT:[Neck is supple.] [No neck masses.] [No thyromegaly.] [No JVD.] Chest: [Clear throughout, no crackles, no rhonchi, no wheezes.] Cardiac Exam: [Normal S1 and S2, no S3 gallop, no murmur.] Abdomen: [Soft, nontender, no megaly, no rebound, no guarding, normal bowel sounds.] Extremities: [No clubbing, 1+ bipedal edema, no cyanosis.] Neurological Exam: Cannot be assessed, patient is quite confused and unable to follow instructions. Results - Laboratory Findings CBC and BMP: 02/14/17 05:05 02/14/17 05:05 PT/INR, D-dimer PT 14.8 sec (9.0-12.0) H 02/14/17 05:05 INR 1.5 (<1.1) 02/14/17 05:05 Abnormal lab findings: Abnormal Labs 02/13/17 02/13/17 02/13/17 12:35 12:35 12:35 WBC RBC 3.19 L Hgb 9.1 L Hct 30.9 L MCHC 29.4 L RDW 19.5 H Plt Count Lymphocytes # 0.6 L PT INR APTT Sodium 132 L Potassium 5.8 H Chloride Carbon Dioxide 9 L* BUN 63 H Creatinine 7.22 H* Glucose 100 H POC Glucose (mg/dL) Calcium 7.8 L Phosphorus Total Bilirubin AST 1187 H ALT 1718 H Ammonia Total Creatine Kinase 394 H CK-MB (CK-2) 5.4 H* Total Protein 5.9 L Albumin 3.2 L Lipase Urine Protein Urine Blood Urine RBC Urine WBC Hyaline Casts Urine Mucus Urine Opiates Screen Ur Oxycodone Screen U Tricyclic Antidepress U Benzodiazepines Scrn 02/13/17 02/13/17 02/13/17 12:35 12:35 12:42 WBC RBC Hgb Hct MCHC RDW Plt Count Lymphocytes # PT >130.0 H INR >10.0 H* APTT 83.8 H Sodium Potassium Chloride Carbon Dioxide BUN Creatinine Glucose POC Glucose (mg/dL) 106 H Calcium Phosphorus Total Bilirubin AST ALT Ammonia 62 H Total Creatine Kinase CK-MB (CK-2) Total Protein Albumin Lipase Urine Protein Urine Blood Urine RBC Urine WBC Hyaline Casts Urine Mucus Urine Opiates Screen Ur Oxycodone Screen U Tricyclic Antidepress U Benzodiazepines Scrn 02/13/17 02/13/17 02/13/17 12:50 21:32 21:32 WBC RBC Hgb Hct MCHC RDW Plt Count Lymphocytes # PT INR APTT Sodium 136 L Potassium Chloride 111 H Carbon Dioxide 11 L BUN 56 H Creatinine 4.10 H Glucose 104 H POC Glucose (mg/dL) Calcium 7.0 L Phosphorus Total Bilirubin AST 641 H ALT 1292 H Ammonia 34 H Total Creatine Kinase CK-MB (CK-2) Total Protein 4.8 L Albumin 2.6 L Lipase Urine Protein 1+ H Urine Blood Large H Urine RBC >182 H Urine WBC 6 H Hyaline Casts 4 H Urine Mucus Rare H Urine Opiates Screen Detected H Ur Oxycodone Screen Detected H U Tricyclic Antidepress Detected H U Benzodiazepines Scrn Detected H 02/13/17 02/13/17 02/14/17 21:50 21:51 01:55 WBC 3.3 L RBC 2.68 L Hgb 7.7 L Hct 26.7 L MCHC 28.8 L RDW 19.0 H Plt Count 143 L Lymphocytes # 0.6 L PT 31.3 H INR APTT 34.7 H Sodium Potassium Chloride Carbon Dioxide BUN Creatinine Glucose POC Glucose (mg/dL) 157 H Calcium Phosphorus Total Bilirubin AST ALT Ammonia Total Creatine Kinase CK-MB (CK-2) Total Protein Albumin Lipase Urine Protein Urine Blood Urine RBC Urine WBC Hyaline Casts Urine Mucus Urine Opiates Screen Ur Oxycodone Screen U Tricyclic Antidepress U Benzodiazepines Scrn 02/14/17 02/14/17 02/14/17 05:05 05:05 05:05 WBC 3.3 L RBC 2.44 L Hgb 7.1 L Hct 23.0 L MCHC 30.7 L RDW 19.7 H Plt Count Lymphocytes # 0.3 L PT 14.8 H INR APTT Sodium Potassium Chloride 112 H Carbon Dioxide 17 L BUN 38 H Creatinine 2.00 H Glucose 150 H POC Glucose (mg/dL) Calcium 7.5 L Phosphorus 1.8 L Total Bilirubin 1.4 H AST 339 H ALT 1086 H Ammonia Total Creatine Kinase CK-MB (CK-2) Total Protein 4.5 L Albumin 2.5 L Lipase 884 H Urine Protein Urine Blood Urine RBC Urine WBC Hyaline Casts Urine Mucus Urine Opiates Screen Ur Oxycodone Screen U Tricyclic Antidepress U Benzodiazepines Scrn 02/14/17 02/14/17 06:06 12:31 WBC RBC Hgb Hct MCHC RDW Plt Count Lymphocytes # PT INR APTT Sodium Potassium Chloride Carbon Dioxide BUN Creatinine Glucose POC Glucose (mg/dL) 179 H 164 H Calcium Phosphorus Total Bilirubin AST ALT Ammonia Total Creatine Kinase CK-MB (CK-2) Total Protein Albumin Lipase Urine Protein Urine Blood Urine RBC Urine WBC Hyaline Casts Urine Mucus Urine Opiates Screen Ur Oxycodone Screen U Tricyclic Antidepress U Benzodiazepines Scrn - Diagnostic Findings Chest x-ray: image reviewed (No evidence of acute process noted on the chest x- ray.) Additional studies: CT of the brain showed old left temporal occipital lobe infarct. Assessment and Plan Plan: Impression: 1 acute metabolic encephalopathy secondary to hypotension, acute kidney injury and renal failure, and acute shock liver. 2 history of previous CVA and hemicraniectomy on 04/16/2015, 3 history of seizure disorder maintained on Keppra 4 history of alcohol abuse and alcoholism. 5 history of protein C deficiency 6 history of patent foramen ovale 7 history of ADHD 8 possible sepsis on admission, primary source is not clear at this point, patient will remain on empiric antibiotics. 9 anemia, most likely secondary to GI blood losses, probably secondary to elevated INR upon presentation, this will have to be further investigated. 10 subacute pancreatitis considering his elevated lipase with normal amylase on admission. Recommendation: Continue present supportive care measures, continue to hydrate the patient, monitor his metabolic abnormalities closely including his renal profile and liver profile. Continue to monitor for possible alcohol withdrawal and keep the patient on Ativan protocol. In the meantime empiric antibiotics were given, cultures are pending. We'll continue to follow, prognosis is definitely guarded. Time with Patient: Greater than 30
[2017-02-14] MEDS: HYDROmorphone 1 MG/ML 1 ML SYRINGE IVP PRN ×3 (13:39→21:20)
[2017-02-14] MEDS: ENOXAPARIN 30 MG/0.3 ML SYRINGE SQ SCH (15:19)
[2017-02-14 18:33] LABS: Glucose,Whole Blood 154 mg/dL (75-99)
[2017-02-14 21:15] LABS: Glucose,Whole Blood 134 mg/dL (75-99)
[2017-02-15] MEDS: LORazepam 2 MG/ML SYRINGE IV PRN ×10 (00:06→21:58)
[2017-02-15 00:15] LABS: Glucose,Whole Blood 139 mg/dL (75-99)
[2017-02-15] MEDS: DEXTROSE 5% IN WATER 1,000 ML with SODIUM BICARB (1 MEQ/ML) 150 ML IV SCH (00:15)
[2017-02-15] MEDS: INSULIN LISPRO (humaLOG) 300 UNIT/3 ML VIAL SQ SCH ×4 (00:52→17:44)
--- NOTE | 2017-02-15 01:20 | P.CONS ---
History of Present Illness - Reason for Consult Consult date: 02/14/17 - History of Present Illness The patient is a 46-year-old male with alcohol dependency who was brought to the ER by EMS because of mental changes. He apparently has been feeling weak lately. He was found to be hypotensive and obtunded and required resuscitation with 3 liters of fluid. He has past medical history of a stroke in 2014 with midline shift requiring hemicraniotomy and a large neurosurgical intervention with subsequent placement of a chronic [employer]ATOR shunt. He has been dependent on his for his care according to his chart and has chronic right-sided hemiparesis. The patient drinks alcohol daily. In the emergency room he was found to be hypotensive with evidence of kidney and liver shock. We are asked to see him regarding encephalopathy. He was still showing evidence of alcohol withdrawal this morning requiring IV Ativan that made him quite lethargic this morning. His kidney functions are improving and is followed by nephrology. His Cr was 4.1 yesterday down to 2.0 today. INR was greater than 10 is 1.5 after Vit K administration. CT of abdomen showed atrophic pancreas. S/P cholecystectomy. Normal liver and spleen. Liver enzymes showed total bilirubin 1.2, AST 641 and ALT 1292 yesterday, today 1.4, 339 and 1086 respectively. Ammonia level 34. No evidence of GI bleeding. Review of Systems Could not be obtained as patient is lethargic and not responding to verbal commands. Past Medical History Past Medical History: COPD, CVA/TIA, GERD/Reflux, Hypertension, Seizure Disorder Additional Past Medical History / Comment(s): LAST SEIZURE 08/2016, HX BLOOD IN STOOL, LEFT SIDED WEAKNESS R/T CVA, Brain Shunt, currently tied; does not feel anything on the right side, right leg and arm very weaker - much weaker than the left side; legally blind in the right eye, pain in left shoulder from previous surgery in 2013 History of Any Multi-Drug Resistant Organisms: None Reported Past Surgical History: Cholecystectomy, Orthopedic Surgery Additional Past Surgical History / Comment(s): LEFT SHOULDER RECENT SX, LIBRA KNEE , RT ARM, STATES HAD A "BAD STAPH INFECTION YEARS AGO IN ONE KNEE", UNSURE IF MRSA, 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 Past Anesthesia/Blood Transfusion Reactions: No Reported Reaction Past Psychological History: ADD/ADHD, Anxiety Smoking Status: Former smoker Past Alcohol Use History: Abuse, Heavy Additional Past Alcohol Use History / Comment(s): PATIENT STATES HE IS AN ALCHOHOLIC, Past Drug Use History: None Reported - Past Family History Father History Unknown: Yes Additional Family Medical History / Comment(s): Pt is adopted Medications and Allergies Home Medications Medication Instructions Recorded Confirmed Type oxyCODONE-APAP 10-325MG [Percocet 1 tab PO Q6H 04/16/15 02/13/17 History 10-325 mg] ALPRAZolam [Xanax] 0.25 mg PO Q6HR PRN 11/24/15 02/13/17 History Acetaminophen Tab [Tylenol] 500 mg PO Q6H PRN 11/24/15 02/13/17 History Diltiazem Cd [Cardizem CD] 120 mg PO DAILY@0600 11/24/15 02/13/17 History Metoprolol Tartrate [Lopressor] 50 mg PO BID@0600,1800 11/24/15 02/13/17 History Pravastatin Sodium [Pravachol] 40 mg PO HS 11/24/15 02/13/17 History Temazepam [Restoril] 30 mg PO HS 11/24/15 02/13/17 History guaiFENesin SYRUP 100MG/5ML 200 mg PO Q6HR PRN 11/24/15 02/13/17 History [Robitussin] levETIRAcetam 750 mg PO BID@0600,1800 11/24/15 02/13/17 History Ferrous Sulfate [Iron (65 MG 325 mg PO BID@0600,1800 12/16/15 02/13/17 History Elemental)] Warfarin Sodium [Coumadin] 3 mg PO HS 12/16/15 02/13/17 History Gabapentin [Neurontin] 600 mg PO DAILY@1800 11/16/16 02/13/17 History Dextroamphetamine/Amphetamine 10 mg PO BID@0600,1200 02/13/17 02/13/17 History [Adderall] Docusate [Colace] 100 mg PO DAILY PRN 02/13/17 02/13/17 History Lisinopril [Zestril] 2.5 mg PO DAILY@0600 02/13/17 02/13/17 History Pantoprazole [Protonix] 40 mg PO DAILY@0600 02/13/17 02/13/17 History Allergies Allergy/AdvReac Type Severity Reaction Status Date / Time codeine AdvReac Nausea & Verified 02/13/17 14:43 Vomiting Physical Exam Vitals: Vital Signs Temp Pulse Resp BP Pulse Ox 02/14/17 19:00 114 H 14 169/98 02/14/17 18:30 113 H 16 155/96 96 02/14/17 18:00 118 H 16 161/93 97 02/14/17 17:30 115 H 15 175/74 96 02/14/17 17:00 114 H 18 169/106 98 02/14/17 16:30 108 H 16 166/96 97 02/14/17 16:00 111 H 16 149/94 98 02/14/17 15:30 110 H 19 156/93 94 L 02/14/17 15:00 107 H 14 150/98 99 02/14/17 14:30 110 H 15 157/95 02/14/17 14:00 113 H 18 170/112 02/14/17 13:30 113 H 21 160/103 02/14/17 13:00 109 H 16 184/98 98 02/14/17 12:30 115 H 15 149/95 02/14/17 12:00 98.4 F 114 H 16 140/87 93 L 02/14/17 11:30 112 H 19 152/92 93 L 02/14/17 11:00 116 H 20 127/84 91 L 02/14/17 10:30 119 H 21 142/88 91 L 02/14/17 10:00 119 H 18 155/80 92 L 02/14/17 09:30 125 H 19 165/74 94 L 02/14/17 09:00 123 H 19 140/79 92 L 02/14/17 08:30 119 H 22 168/70 95 02/14/17 08:00 120 H 19 120/74 95 02/14/17 07:00 120 H 17 111/66 95 02/14/17 06:00 119 H 17 119/77 92 L 02/14/17 05:00 115 H 17 108/74 93 L 02/14/17 04:00 98.6 F 114 H 16 120/76 95 02/14/17 03:00 116 H 34 H 101/55 95 02/14/17 02:00 108 H 16 135/67 93 L 02/14/17 01:00 104 H 16 128/62 93 L 02/14/17 00:00 100 15 106/61 97 Intake and Output 02/14/17 02/14/17 02/15/17 14:59 22:59 06:59 Intake Total 1520 400 Output Total 1525 925 Balance -5 -525 Intake: IV 820 400 Dextrose 5% in Water 1, 820 400 000 ml @ 80 mls/hr IV . [id number] MO with Sodium Bicarb (1 Meq/ml) 150 ml Rx#:[id number] Intake, IV Titration 700 Amount Magnesium Sulfate-D5w Pmx 200 1 gm In Dextrose/Water 1 100ml.bag @ 100 mls/hr IVPB Q1H MO Rx#: [id number] Potassium Phosphate 10 500 mmol In Sodium Chloride 0 .9% 250 ml @ 125 mls/hr IV Q2H MO Rx#:[id number] Output: Urine 1525 925 Other: Voiding Method Indwelling Catheter Indwelling Catheter Weight 88.7 kg 88.7 kg Patient Weight 02/15/17 06:59 Weight 88.7 kg General: Appeared stated age, quite lethargic HEENT: Normocephalic and atraumatic. Conjunctivae pink, sclerae not icteric. Mucous membranes slightly dry Lungs: Clear to auscultation with no dullness to percussion Heart: regular, no abnormal sounds, murmurs, gallops or friction rubs Abdomen: soft, no masses or organomegalies Extremities: No cyanosis or edema Neurologic: Lethargic, moving all extremities, coul not demonstrate one-sided weakness. Results CBC & Chem 7: 02/14/17 05:05 02/14/17 05:05 Labs: Abnormal Lab Results - Last 24 Hours (Table) 02/14/17 02/14/17 02/14/17 Range/Units 01:55 05:05 05:05 WBC 3.3 L (3.8-10.6) k/uL RBC 2.44 L (4.30-5.90) m/uL Hgb 7.1 L (13.0-17.5) gm/dL Hct 23.0 L (39.0-53.0) % MCHC 30.7 L (31.0-37.0) g/dL RDW 19.7 H (11.5-15.5) % Lymphocytes # 0.3 L (1.0-4.8) k/uL PT 14.8 H (9.0-12.0) sec Chloride (98-107) mmol/L Carbon Dioxide (22-30) mmol/L BUN (9-20) mg/dL Creatinine (0.66-1.25) mg/dL Glucose (74-99) mg/dL POC Glucose (mg/dL) 157 H (75-99) mg/dL Calcium (8.4-10.2) mg/dL Phosphorus (2.5-4.5) mg/dL Total Bilirubin (0.2-1.3) mg/dL AST (17-59) U/L ALT (21-72) U/L Total Protein (6.3-8.2) g/dL Albumin (3.5-5.0) g/dL Lipase (23-300) U/L 02/14/17 02/14/17 02/14/17 Range/Units 05:05 06:06 12:31 WBC (3.8-10.6) k/uL RBC (4.30-5.90) m/uL Hgb (13.0-17.5) gm/dL Hct (39.0-53.0) % MCHC (31.0-37.0) g/dL RDW (11.5-15.5) % Lymphocytes # (1.0-4.8) k/uL PT (9.0-12.0) sec Chloride 112 H (98-107) mmol/L Carbon Dioxide 17 L (22-30) mmol/L BUN 38 H (9-20) mg/dL Creatinine 2.00 H (0.66-1.25) mg/dL Glucose 150 H (74-99) mg/dL POC Glucose (mg/dL) 179 H 164 H (75-99) mg/dL Calcium 7.5 L (8.4-10.2) mg/dL Phosphorus 1.8 L (2.5-4.5) mg/dL Total Bilirubin 1.4 H (0.2-1.3) mg/dL AST 339 H (17-59) U/L ALT 1086 H (21-72) U/L Total Protein 4.5 L (6.3-8.2) g/dL Albumin 2.5 L (3.5-5.0) g/dL Lipase 884 H (23-300) U/L 02/14/17 02/14/17 Range/Units 18:32 20:56 WBC (3.8-10.6) k/uL RBC (4.30-5.90) m/uL Hgb (13.0-17.5) gm/dL Hct (39.0-53.0) % MCHC (31.0-37.0) g/dL RDW (11.5-15.5) % Lymphocytes # (1.0-4.8) k/uL PT (9.0-12.0) sec Chloride (98-107) mmol/L Carbon Dioxide (22-30) mmol/L BUN (9-20) mg/dL Creatinine (0.66-1.25) mg/dL Glucose (74-99) mg/dL POC Glucose (mg/dL) 154 H 134 H (75-99) mg/dL Calcium (8.4-10.2) mg/dL Phosphorus (2.5-4.5) mg/dL Total Bilirubin (0.2-1.3) mg/dL AST (17-59) U/L ALT (21-72) U/L Total Protein (6.3-8.2) g/dL Albumin (3.5-5.0) g/dL Lipase (23-300) U/L Microbiology - Last 24 Hours (Table) 02/13/17 20:50 Urine Culture - Preliminary Urine,Catheterized Assessment and Plan Plan: 46-year male with history of alcoholism, seizure disorder and prior CVA presenting with hypotension and picture of shock liver. Coagulopathy, which could be related to poor oral intake and underlying liver disease, is responding to therapy. No overt GI bleeding but Hb has dropped after fluid resuscitation. Liver enzymes have come down slightly with improvement of his blood pressure. Alcohol withdrawal could complicate his recoovert. Agree with you current management and aggressive fluid and electrolyte management. Follow CIWA protocol. Repeat liver profile tomorrow. Further plans based on his course. Will follow with you closely.
[2017-02-15] MEDS: HYDROmorphone 1 MG/ML 1 ML SYRINGE IVP PRN ×3 (02:31→23:07)
[2017-02-15 06:00] LABS: Anisocytosis Slight; Basophils % (A) 0 %; CH 28.5; CHCM 30.9; Eosinophils # (A) 0.1 k/uL (0-0.7); Eosinophils % (A) 2 %; HCT 23.4 % (39.0-53.0); HDW 2.69; HGB 7.3 gm/dL (13.0-17.5); Hypochromasia Slight; Luc % (Auto) 3; Lymphocytes # (A) 0.6 k/uL (1.0-4.8); Lymphocytes % (A) 20 %; MCH 28.7 pg (25.0-35.0); MCHC 31.1 g/dL (31.0-37.0); MCV 92.2 fL (80.0-100.0); Mean Platelet Volume 7.2; Monocytes # (A) 0.3 k/uL (0-1.0); Monocytes % (A) 9 %; Neutrophils # (A) 2.1 k/uL (1.3-7.7); Neutrophils % (A) 66 %; RBC 2.54 m/uL (4.30-5.90); RDW 19.5 % (11.5-15.5); WBC 3.1 k/uL (3.8-10.6); WBC (Perox) 3.08
[2017-02-15] MEDS: levETIRAcetam IV 750 MG in SODIUM CHLORIDE 0.9% 100 ML IVPB SCH ×2 (06:06→18:29)
[2017-02-15 06:08] LABS: Glucose,Whole Blood 179 mg/dL (75-99)
[2017-02-15 06:19] LABS: Anion Gap 9 mmol/L; Blood Urea Nitrogen 11 mg/dL (9-20); Calcium 8.6 mg/dL (8.4-10.2); Carbon Dioxide 25 mmol/L (22-30); Chloride 109 mmol/L (98-107); Glucose 149 mg/dL (74-99); Magnesium 1.6 mg/dL (1.6-2.3); Non-African American GFR(MDRD) >60 (>60 ml/min/1.73 sqM); Phosphorous 1.7 mg/dL (2.5-4.5); Potassium 3.8 mmol/L (3.5-5.1); Sodium 143 mmol/L (137-145)
[2017-02-15] MEDS: FERROUS SULFATE 325 MG TAB PO SCH ×2 (07:17→17:43)
[2017-02-15 07:24] LABS: Glucose,Whole Blood 179 mg/dL (75-99)
--- NOTE | 2017-02-15 08:11 | XR ---
EXAMINATION TYPE: XR chest 1V DATE OF EXAM: 02/15/2017 6:40 AM COMPARISON: 02/13/2017 HISTORY: 46-year-old male shortness of breath, possible aspiration TECHNIQUE: Single frontal view of the chest is obtained. 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 Heart is upper limits of normal in s ize. Low lung volumes with crowded vascular markings. The left base is underpenetrated and not well a ssessed. Old healed right-sided rib fracture deformities. The upper to mid lungs appear clear. IMPRESSION: Hypoventilatory changes. The left base is underpenetrated and not well assessed.
[2017-02-15] MEDS: LACTULOSE 20 GM/30 ML CUP PO SCH ×4 (08:36→22:12)
[2017-02-15] MEDS: PANTOPRAZOLE 40 MG/10 ML VIAL IV SCH ×2 (08:36→21:58)
[2017-02-15] MEDS: POTASSIUM CHLORIDE 10 MEQ, LIDOCAINE 2% INJ 10 MG in SODIUM CHLORIDE 0.9% 100 ML IV SCH ×2 (08:45→09:49)
--- NOTE | 2017-02-15 09:56 | P.PN ---
Subjective Principal diagnosis: EtOH abuse hepatic encephalopathy 46-year-old male with a history of alcohol abuse, protein C deficiency, PFO, previous CVA with hemicraniotomy HOLLOCK [employer]ER shunt presents with mental status changes and profound coagulopathy possible sepsis. Nursing reports projectile nonbloody emesis last night. Presently restrained. Loose bowel movements burgundy in color last night. INR yesterday 1.5. Hemoglobin 7.3 up from 7.1 yesterday. Platelet 185. BUN 11. Creatinine 0.6. Ammonia 54. Transaminases elevated on admission but improving. Objective - Vital Signs Vital signs: Vital Signs Temp 98.8 F 02/15/17 08:00 Pulse 98 02/15/17 09:00 Resp 23 02/15/17 09:00 BP 159/105 02/15/17 09:00 Pulse Ox 95 02/15/17 09:00 Intake & Output 02/14/17 02/15/17 02/15/17 18:59 06:59 18:59 Intake Total 1840 1080 370 Output Total 2324 2010 270 Balance -485 -930 100 Weight 88.7 kg 89.2 kg Intake: IV 1140 980 220 0.9 at KVO 0 Dextrose 5% in Water 1, 1140 980 220 000 ml @ 80 mls/hr IV . [id number] MO with Sodium Bicarb (1 Meq/ml) 150 ml Rx#:[id number] Intake, IV Titration 700 100 150 Amount Magnesium Sulfate-D5w Pmx 200 1 gm In Dextrose/Water 1 100ml.bag @ 100 mls/hr IVPB Q1H [place] Rx#: [id number] Potassium Chloride 10 meq 100 Lidocaine 2% Inj 10 mg In Sodium Chloride 0.9% 100 ml @ 100 mls/hr IV Q1HR [place] Rx#:[id number] Potassium Phosphate 10 500 mmol In Sodium Chloride 0 .9% 250 ml @ 125 mls/hr IV Q2H [place] Rx#:[id number] cefTRIAXone 1,000 mg In 50 Sodium Chloride 0.9% 50 ml @ 100 mls/hr IVPB Q24HR [place] Rx#:[id number] levETIRAcetam IV 750 mg 100 In Sodium Chloride 0.9% 100 ml @ 215 mls/hr IVPB Q12HR@0600,1800 [place] Rx#: [id number] Output: Urine 2325 1510 270 Stool 300 Emesis 200 Other: Voiding Method Indwelling Catheter Indwelling Catheter Indwelling Catheter # Bowel Movements 2 1 - Exam General appearance: Patient is obtunded and unable to hold conversation moaning. HET: Head is normocephalic and atraumatic. Pupils are equal and reactive. Oropharynx is clear without lesions. Neck: Supple without lymphadenopathy. Trachea midline. Heart: S1 S2. Regular rate and rhythm. Lungs: No crackles or wheezes are heard. Abdomen: Soft, nondistended with bowel sounds. No peritoneal signs. No palpable organomegaly or masses. Extremities: Normal skin color and turgor. No cyanosis, rash, ulceration, clubbing, or edema. Radial and pedal pulses are 2/4 bilaterally. Fully with sade urine. Neurological: Right hemiparesis. Rectal: Yellow liquid stool no palpable masses. No blood in diaper. - Labs CBC & Chem 7: 02/15/17 05:42 02/15/17 05:42 Labs: Abnormal Lab Results - Last 24 Hours (Table) 02/14/17 02/14/17 02/14/17 Range/Units 12:31 18:32 20:56 WBC (3.8-10.6) k/uL RBC (4.30-5.90) m/uL Hgb (13.0-17.5) gm/dL Hct (39.0-53.0) % RDW (11.5-15.5) % Lymphocytes # (1.0-4.8) k/uL Chloride (98-107) mmol/L Creatinine (0.66-1.25) mg/dL Glucose (74-99) mg/dL POC Glucose (mg/dL) 164 H 154 H 134 H (75-99) mg/dL Phosphorus (2.5-4.5) mg/dL Ammonia (<30) umol/L 02/15/17 02/15/17 02/15/17 Range/Units 00:11 05:42 05:42 WBC (3.8-10.6) k/uL RBC (4.30-5.90) m/uL Hgb (13.0-17.5) gm/dL Hct (39.0-53.0) % RDW (11.5-15.5) % Lymphocytes # (1.0-4.8) k/uL Chloride 109 H (98-107) mmol/L Creatinine 0.60 L (0.66-1.25) mg/dL Glucose 149 H (74-99) mg/dL POC Glucose (mg/dL) 139 H (75-99) mg/dL Phosphorus 1.7 L (2.5-4.5) mg/dL Ammonia 54 H (<30) umol/L 02/15/17 02/15/17 02/15/17 Range/Units 05:42 06:06 07:23 WBC 3.1 L (3.8-10.6) k/uL RBC 2.54 L (4.30-5.90) m/uL Hgb 7.3 L (13.0-17.5) gm/dL Hct 23.4 L (39.0-53.0) % RDW 19.5 H (11.5-15.5) % Lymphocytes # 0.6 L (1.0-4.8) k/uL Chloride (98-107) mmol/L Creatinine (0.66-1.25) mg/dL Glucose (74-99) mg/dL POC Glucose (mg/dL) 179 H 179 H (75-99) mg/dL Phosphorus (2.5-4.5) mg/dL Ammonia (<30) umol/L Microbiology - Last 24 Hours (Table) 02/13/17 21:32 Blood Culture - Preliminary Blood No Growth after 24 hours 02/13/17 20:50 Urine Culture - Preliminary Urine,Catheterized Assessment and Plan Plan: 1. Metabolic encephalopathy with superimposed hepatic encephalopathy with elevated ammonia level today with history of EtOH abuse. Continue CIWA protocol Possible sepsis. 2. History of CVA requiring craniotomy and HOLLOCK MAKER shunt. 3. Protein C deficiency anticoagulation on hold. Receiving Lovenox daily. 4. Warfarin-induced coagulopathy resolved. 5. History of PFO. 6. Possible GI bleed with reported maroon liquid stools by nursing staff; rectal exam this morning showed yellow liquid stool with no blood in her diaper. 7. Anemia hypochromic normocytic suspect component of acute blood loss. 8. Hypotension on admission with elevated transaminases; improving with mild hyperbilirubinemia suspect component of ischemic hepatitis with superimposed alcohol hepatitis possible alcohol pancreatitis with elevated lipase on admission 884. Plan: 1. Continue lactulose as directed. Daily ammonia levels. Check hepatitis panel, LFTs, lipase today. 2. Continue with IV Protonix twice daily. 3. Monitor CBC. Will obtain iron indices. 4. Endoscopy contingent on clinical course will continue to assess daily. Assessment and plan of care discussed with Dr. Smith.
--- NOTE | 2017-02-15 10:51 | P.PN ---
Subjective Patient is seen in follow-up for acute kidney injury. His creatinine peaked at 7.3 this admission and is 0.6 this morning. His electrolytes are stable. Patient is quite lethargic and is not a reliable historian. He remains nonoliguric. Hemodynamically stable. Vital signs are stable. General: The patient appeared well nourished and normally developed. HEENT: Head exam is unremarkable. Neck is without jugular venous distension. LUNGS: Lungs are clear to auscultation and percussion. Breath sounds decreased. HEART: Rate and Rhythm are regular. First and second heart sounds normal. No murmurs, rubs or gallops. ABDOMEN: Abdominal exam reveals normal bowel sounds. Non-tender and non- distended. No evidence of peritonitis. EXTREMITITES: No clubbing, cyanosis, or edema. Objective - Vital Signs Vital signs: Vital Signs Temp 98.8 F 02/15/17 08:00 Pulse 94 02/15/17 10:00 Resp 19 02/15/17 10:00 BP 168/108 02/15/17 10:00 Pulse Ox 98 02/15/17 10:00 Intake & Output 02/14/17 02/15/17 02/15/17 18:59 06:59 18:59 Intake Total 1840 1080 550 Output Total 2325 2010 395 Balance -485 -930 155 Weight 88.7 kg 89.2 kg Intake: IV 1140 980 300 0.9 at KVO 0 Dextrose 5% in Water 1, 1140 980 300 000 ml @ 80 mls/hr IV . [id number] MO with Sodium Bicarb (1 Meq/ml) 150 ml Rx#:[id number] Intake, IV Titration 700 100 250 Amount Magnesium Sulfate-D5w Pmx 200 1 gm In Dextrose/Water 1 100ml.bag @ 100 mls/hr IVPB Q1H MO Rx#: [id number] Potassium Chloride 10 meq 200 Lidocaine 2% Inj 10 mg In Sodium Chloride 0.9% 100 ml @ 100 mls/hr IV Q1HR MO Rx#:[id number] Potassium Phosphate 10 500 mmol In Sodium Chloride 0 .9% 250 ml @ 125 mls/hr IV Q2H MO Rx#:[id number] cefTRIAXone 1,000 mg In 50 Sodium Chloride 0.9% 50 ml @ 100 mls/hr IVPB Q24HR [place] Rx#:[id number] levETIRAcetam IV 750 mg 100 In Sodium Chloride 0.9% 100 ml @ 215 mls/hr IVPB Q12HR@0600,1800 [facility] Rx#: [id number] Output: Urine 2325 1510 395 Stool 300 Emesis 200 Other: Voiding Method Indwelling Catheter Indwelling Catheter Indwelling Catheter # Bowel Movements 2 1 - Labs CBC & Chem 7: 02/15/17 05:42 02/15/17 05:42 Labs: Abnormal Lab Results - Last 24 Hours (Table) 02/14/17 02/14/17 02/14/17 Range/Units 12:31 18:32 20:56 WBC (3.8-10.6) k/uL RBC (4.30-5.90) m/uL Hgb (13.0-17.5) gm/dL Hct (39.0-53.0) % RDW (11.5-15.5) % Lymphocytes # (1.0-4.8) k/uL Chloride (98-107) mmol/L Creatinine (0.66-1.25) mg/dL Glucose (74-99) mg/dL POC Glucose (mg/dL) 164 H 154 H 134 H (75-99) mg/dL Phosphorus (2.5-4.5) mg/dL Ammonia (<30) umol/L 02/15/17 02/15/17 02/15/17 Range/Units 00:11 05:42 05:42 WBC (3.8-10.6) k/uL RBC (4.30-5.90) m/uL Hgb (13.0-17.5) gm/dL Hct (39.0-53.0) % RDW (11.5-15.5) % Lymphocytes # (1.0-4.8) k/uL Chloride 109 H (98-107) mmol/L Creatinine 0.60 L (0.66-1.25) mg/dL Glucose 149 H (74-99) mg/dL POC Glucose (mg/dL) 139 H (75-99) mg/dL Phosphorus 1.7 L (2.5-4.5) mg/dL Ammonia 54 H (<30) umol/L 02/15/17 02/15/17 02/15/17 Range/Units 05:42 06:06 07:23 WBC 3.1 L (3.8-10.6) k/uL RBC 2.54 L (4.30-5.90) m/uL Hgb 7.3 L (13.0-17.5) gm/dL Hct 23.4 L (39.0-53.0) % RDW 19.5 H (11.5-15.5) % Lymphocytes # 0.6 L (1.0-4.8) k/uL Chloride (98-107) mmol/L Creatinine (0.66-1.25) mg/dL Glucose (74-99) mg/dL POC Glucose (mg/dL) 179 H 179 H (75-99) mg/dL Phosphorus (2.5-4.5) mg/dL Ammonia (<30) umol/L Microbiology - Last 24 Hours (Table) 02/13/17 21:32 Blood Culture - Preliminary Blood No Growth after 24 hours 02/13/17 20:50 Urine Culture - Preliminary Urine,Catheterized Assessment and Plan Plan: Assessment: #1. Nonoliguric acute kidney injury mostly prerenal in nature secondary to hypotension. Improving. Creatinine was 7.2 on admission and is down to 0.6 today. No evidence of hydronephrosis on renal ultrasound. #2. Metabolic acidosis secondary to acute kidney injury. Resolved. #3. Anemia. Rule out iron deficiency. #4. History of alcohol abuse. Currently maintained on CIWA protocol. #5. Transaminitis related to hypoperfusion due to hypotension. Improving. #6. Hyperkalemia on admission secondary to acute kidney injury and metabolic acidosis. Resolved. #7. Hypophosphatemia secondary to alcohol abuse and poor nutritional status. Plan: Discontinue sodium bicarbonate drip. For maintenance fluids at the start him on normal saline at 75 mL an hour. Check iron studies. Avoid nephrotoxic agents and hypotensive episodes. JENSEN inhibitor held for now. Repeat electrolytes in the morning. Phosphorus being replaced.
[2017-02-15] MEDS: ENOXAPARIN 30 MG/0.3 ML SYRINGE SQ SCH (11:08)
[2017-02-15] MEDS: SODIUM PHOSPHATE 10 MMOL in SODIUM CHLORIDE 0.9% 250 ML IVPB SCH ×2 (11:10→13:38)
[2017-02-15] MEDS: SODIUM CHLORIDE 0.9% 1,000 ML IV SCH (11:10)
[2017-02-15] MEDS: MAGNESIUM SULFATE-D5W PMX 1 GM in DEXTROSE/WATER 1 100ML.BAG IVPB SCH ×2 (12:15→13:38)
[2017-02-15] MEDS: THIAMINE 100 MG TAB PO SCH ×2 (12:16→17:43)
[2017-02-15] MEDS: RIFAXIMIN 550 MG TABLET PO SCH ×2 (12:16→22:12)
[2017-02-15 12:18] LABS: Glucose,Whole Blood 150 mg/dL (75-99)
--- NOTE | 2017-02-15 12:35 | P.PN ---
Subjective Patient is more awake today. He is still agitated and requiring Ativan but less frequently compared to yesterday. He has a sitter at bedside. Objective - Vital Signs Vital signs: Vital Signs Temp 99.9 F H 02/15/17 12:00 Pulse 106 H 02/15/17 12:00 Resp 17 02/15/17 12:00 BP 175/114 02/15/17 12:00 Pulse Ox 95 02/15/17 12:00 Intake & Output 02/14/17 02/15/17 02/15/17 18:59 06:59 18:59 Intake Total 1840 1080 630 Output Total 2324 2010 476 Balance -485 -930 154 Weight 88.7 kg 89.2 kg Intake: IV 1140 980 380 0.9 at KVO 0 Dextrose 5% in Water 1, 1140 980 380 000 ml @ 80 mls/hr IV . [id number] MO with Sodium Bicarb (1 Meq/ml) 150 ml Rx#:[id number] Intake, IV Titration 700 100 250 Amount Magnesium Sulfate-D5w Pmx 200 1 gm In Dextrose/Water 1 100ml.bag @ 100 mls/hr IVPB Q1H [facility] Rx#: [id number] Potassium Chloride 10 meq 200 Lidocaine 2% Inj 10 mg In Sodium Chloride 0.9% 100 ml @ 100 mls/hr IV Q1HR [facility] Rx#:[id number] Potassium Phosphate 10 500 mmol In Sodium Chloride 0 .9% 250 ml @ 125 mls/hr IV Q2H [facility] Rx#:[id number] cefTRIAXone 1,000 mg In 50 Sodium Chloride 0.9% 50 ml @ 100 mls/hr IVPB Q24HR [facility] Rx#:[id number] levETIRAcetam IV 750 mg 100 In Sodium Chloride 0.9% 100 ml @ 215 mls/hr IVPB Q12HR@0600,1800 [facility] Rx#: [id number] Output: Urine 2325 1510 475 Stool 300 Emesis 200 1 Other: Voiding Method Indwelling Catheter Indwelling Catheter Indwelling Catheter # Bowel Movements 2 1 # Emeses 1 - Exam General: The patient is awake and alert, Eye: there is normal conjunctiva bilaterally. Neck: The neck is supple, there is no JVD. Cardiovascular: Normal S1-S2, no S3-S4, no murmurs. Respiratory: Lungs clear to auscultation bilaterally Gastrointestinal: Abdomen is soft, nontender Musculoskeletal: There is no pedal edema. Skin: Skin is warm and dry - Labs CBC & Chem 7: 02/15/17 05:42 02/15/17 05:42 Labs: Abnormal Lab Results - Last 24 Hours (Table) 02/14/17 02/14/17 02/14/17 Range/Units 12:31 18:32 20:56 WBC (3.8-10.6) k/uL RBC (4.30-5.90) m/uL Hgb (13.0-17.5) gm/dL Hct (39.0-53.0) % RDW (11.5-15.5) % Lymphocytes # (1.0-4.8) k/uL Chloride (98-107) mmol/L Creatinine (0.66-1.25) mg/dL Glucose (74-99) mg/dL POC Glucose (mg/dL) 164 H 154 H 134 H (75-99) mg/dL Phosphorus (2.5-4.5) mg/dL Ammonia (<30) umol/L 02/15/17 02/15/17 02/15/17 Range/Units 00:11 05:42 05:42 WBC (3.8-10.6) k/uL RBC (4.30-5.90) m/uL Hgb (13.0-17.5) gm/dL Hct (39.0-53.0) % RDW (11.5-15.5) % Lymphocytes # (1.0-4.8) k/uL Chloride 109 H (98-107) mmol/L Creatinine 0.60 L (0.66-1.25) mg/dL Glucose 149 H (74-99) mg/dL POC Glucose (mg/dL) 139 H (75-99) mg/dL Phosphorus 1.7 L (2.5-4.5) mg/dL Ammonia 54 H (<30) umol/L 02/15/17 02/15/17 02/15/17 Range/Units 05:42 06:06 07:23 WBC 3.1 L (3.8-10.6) k/uL RBC 2.54 L (4.30-5.90) m/uL Hgb 7.3 L (13.0-17.5) gm/dL Hct 23.4 L (39.0-53.0) % RDW 19.5 H (11.5-15.5) % Lymphocytes # 0.6 L (1.0-4.8) k/uL Chloride (98-107) mmol/L Creatinine (0.66-1.25) mg/dL Glucose (74-99) mg/dL POC Glucose (mg/dL) 179 H 179 H (75-99) mg/dL Phosphorus (2.5-4.5) mg/dL Ammonia (<30) umol/L 02/15/17 Range/Units 12:16 WBC (3.8-10.6) k/uL RBC (4.30-5.90) m/uL Hgb (13.0-17.5) gm/dL Hct (39.0-53.0) % RDW (11.5-15.5) % Lymphocytes # (1.0-4.8) k/uL Chloride (98-107) mmol/L Creatinine (0.66-1.25) mg/dL Glucose (74-99) mg/dL POC Glucose (mg/dL) 150 H (75-99) mg/dL Phosphorus (2.5-4.5) mg/dL Ammonia (<30) umol/L Microbiology - Last 24 Hours (Table) 02/13/17 20:50 Urine Culture - Final Urine,Catheterized 02/13/17 21:32 Blood Culture - Preliminary Blood No Growth after 24 hours Assessment and Plan Plan: 1. Acute kidney injury, now resolved kidney function back to normal 2. Acute liver failure with transaminitis 3. Acute encephalopathy secondary to #1 and 2, now resolved 4. Sepsis with septic shock 5. Urinary tract infection on IV ceftriaxone awaiting culture 6. Supratherapeutic INR reversed with vitamin K on presentation 7. 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 patient is following closely with neurology/neurosurgery as an outpatient 8. Protein C deficiency 9. Underlying patent foramen ovale with [id number] shunt: continue Coumadin for anticoagulation 10. Alcohol abuse 11. Seizure disorder: Maintained on Keppra 12. Hypertension 13. ADHD: maintained on Adderral 10 mg twice a day at home 14. Suspected upper GI bleed and blood loss anemia: Awaiting further recommendation by GI for possible endoscopy This is a 46-year-old gentleman with a very complex past medical history noted above who presented to the hospital with evidence of sepsis with septic shock as well as dehydration and intravascular depletion. He had multiple and organ damage involving acute kidney and acute liver failure. His overall condition is very guarded. He was resuscitated adequately with IV fluid. He is currently in the intensive care unit. Sitter at bedside. Repeat lab work in the morning.
[2017-02-15 13:41] LABS: ALT 687 U/L (21-72); AST 96 U/L (17-59); Alkaline Phosphatase 85 U/L (38-126); Anion Gap 9 mmol/L; Blood Urea Nitrogen 8 mg/dL (9-20); Calcium 8.2 mg/dL (8.4-10.2); Carbon Dioxide 28 mmol/L (22-30); Chloride 107 mmol/L (98-107); Glucose 142 mg/dL (74-99); Iron 80 ug/dL (49-181); Non-African American GFR(MDRD) >60 (>60 ml/min/1.73 sqM); Potassium 3.5 mmol/L (3.5-5.1); Sodium 144 mmol/L (137-145); Total Bilirubin 1.3 mg/dL (0.2-1.3); Total Protein 5.1 g/dL (6.3-8.2)
[2017-02-15 13:51] LABS: % Iron Saturation 21.8 % (20-50); Total Iron Binding Capacity 367 ug/dL (261-462)
[2017-02-15] MEDS ORDERED: Potassium Replacement Protocol 1 EACH MISC MISCELLANE PRN (13:55)
[2017-02-15] MEDS: POTASSIUM CHLORIDE 10 MEQ in WATER FOR INJECTION 1 100ML.BAG IVPB SCH ×2 (14:55→16:00)
[2017-02-15 14:59] LABS: Hepatitis B Surface Ag Index 0.05
[2017-02-15 15:04] LABS: Hepatitis B Core IgM Index 0.02
[2017-02-15 15:16] LABS: Hepatitis C Virus IgG Ab Negative (Negative); Hepatitis C Virus IgG Index 0.02
--- NOTE | 2017-02-15 16:05 | P.PN ---
Subjective Principal diagnosis: Acute metabolic encephalopathy and hypotension with acute kidney injury and acute shock liver. This is a 46-year-old white male, alcohol, history of previous CVA in 2015, with midline shift requiring hemicraniotomy and subsequent chronic HOSE STRIPPER shunt placement. Patient sustained chronic right-sided hemiparesis. Patient was brought into the ER with mostly mental status change and up on the patient. Upon presentation to the ER, patient was found to have hypotension, there was also evidence of significant abnormal labs including shock liver and acute renal failure. Patient was resuscitated with IV fluids aggressively, blood pressure was noted to improve. His renal profile and liver profile were noted to trend down patient was eventually admitted to the intensive care unit, and I was asked to see him on consultation. Not much information was obtained from the patient as he is a poor historian, but all the information was obtained from the chart. Labs up on admission showed a low hemoglobin of 7.7, INR of 3.2 , BUN of 56 and creatinine of 4.10, elevated transaminases with AST of 641 ALT of 1292, amylase of 884, ammonia level of 34, lactic acid of 1.4. Urine showed evidence of hematuria and slight bacteriuria drug screen was positive for opiates, oxycodone, try cyclic antidepressants, and benzodiazepines. Considering the presentation and considering the patient had to be admitted to the intensive care unit, I was asked to see him on consultation. Again the patient is an extremely poor historian. Patient was reevaluated today on 02/15/2017, patient is hemodynamically stable, pulmonary-slater he also seems to be stable, GI-slater however the patient is having significant amount of maroon colored stools, and GI was consulted. In the meantime we would place his Lovenox on hold and will use Venodyne boots for DVT prophylaxis. His hemoglobin is 7.3 today, and that is being addressed by gastroenterology on the case. The rest of the labs are showing significant improvement. Liver enzymes are also improved. Lipase is noted to be higher now , and ammonia level is also high today at 54. Patient was placed on lactulose, however probably was not absorptions the patient was vomiting. Patient was placed on rifaximin 550 mg by mouth twice a day. Pulmonary-slater, no cough, no shortness of breath, no wheezing. Objective - Vital Signs Vital signs: Vital Signs Temp 99.9 F H 02/15/17 12:00 Pulse 105 H 02/15/17 15:00 Resp 18 02/15/17 15:00 BP 154/99 02/15/17 15:00 Pulse Ox 99 02/15/17 15:00 Intake & Output 02/14/17 02/15/17 02/15/17 18:59 06:59 18:59 Intake Total 1840 1080 1505 Output Total 2324 2009 1251 Balance -485 -930 254 Weight 88.7 kg 89.2 kg Intake: IV 1140 980 380 0.9 at KVO 0 Dextrose 5% in Water 1, 1140 980 380 000 ml @ 80 mls/hr IV . [id number] MO with Sodium Bicarb (1 Meq/ml) 150 ml Rx#:[id number] Intake, IV Titration 086 318 5181 Amount Magnesium Sulfate-D5w Pmx 200 1 gm In Dextrose/Water 1 100ml.bag @ 100 mls/hr IVPB Q1H [facility] Rx#: [id number] Magnesium Sulfate-D5w Pmx 200 1 gm In Dextrose/Water 1 100ml.bag @ 100 mls/hr IVPB Q1H [place] Rx#: [id number] Potassium Chloride 10 meq 100 In Water For Injection 1 100ml.bag @ 100 mls/hr IVPB Q1H [facility] Rx#: [id number] Potassium Chloride 10 meq 200 Lidocaine 2% Inj 10 mg In Sodium Chloride 0.9% 100 ml @ 100 mls/hr IV Q1HR [facility] Rx#:[id number] Potassium Phosphate 10 500 mmol In Sodium Chloride 0 .9% 250 ml @ 125 mls/hr IV Q2H [facility] Rx#:[id number] Sodium Chloride 0.9% 1, 75 000 ml @ 75 mls/hr IV . [id number] [place] Rx#:[id number] Sodium Phosphate 10 mmol 500 In Sodium Chloride 0.9% 250 ml @ 125 mls/hr IVPB Q2H [place] Rx#:[id number] cefTRIAXone 1,000 mg In 50 Sodium Chloride 0.9% 50 ml @ 100 mls/hr IVPB Q24HR [facility] Rx#:[id number] levETIRAcetam IV 750 mg 100 In Sodium Chloride 0.9% 100 ml @ 215 mls/hr IVPB Q12HR@0600,1800 [place] Rx#: [id number] Output: Urine 2325 1510 1250 Stool 300 Emesis 200 1 Other: Voiding Method Indwelling Catheter Indwelling Catheter Indwelling Catheter # Bowel Movements 2 1 # Emeses 1 - Exam General appearance: Patient is less obtunded compared to yesterday.. HET: Head is normocephalic and atraumatic. Pupils are equal and reactive. Oropharynx is clear without lesions. Neck: Supple without lymphadenopathy. Trachea midline. Heart: S1 S2. Regular rate and rhythm. Lungs: Diminished breath sounds at the bases no crackles or rhonchi or wheezes Abdomen: Soft, nondistended with bowel sounds. No peritoneal signs. No palpable organomegaly or masses. Extremities: Normal skin color and turgor. No cyanosis, rash, ulceration, clubbing, or edema. - Labs CBC & Chem 7: 02/15/17 05:42 02/15/17 13:06 Labs: Abnormal Lab Results - Last 24 Hours (Table) 02/14/17 02/14/17 02/15/17 Range/Units 18:32 20:56 00:11 WBC (3.8-10.6) k/uL RBC (4.30-5.90) m/uL Hgb (13.0-17.5) gm/dL Hct (39.0-53.0) % RDW (11.5-15.5) % Lymphocytes # (1.0-4.8) k/uL Chloride (98-107) mmol/L BUN (9-20) mg/dL Creatinine (0.66-1.25) mg/dL Glucose (74-99) mg/dL POC Glucose (mg/dL) 154 H 134 H 139 H (75-99) mg/dL Calcium (8.4-10.2) mg/dL Phosphorus (2.5-4.5) mg/dL AST (17-59) U/L ALT (21-72) U/L Ammonia (<30) umol/L Total Protein (6.3-8.2) g/dL Albumin (3.5-5.0) g/dL Lipase (23-300) U/L 02/15/17 02/15/17 02/15/17 Range/Units 05:42 05:42 05:42 WBC 3.1 L (3.8-10.6) k/uL RBC 2.54 L (4.30-5.90) m/uL Hgb 7.3 L (13.0-17.5) gm/dL Hct 23.4 L (39.0-53.0) % RDW 19.5 H (11.5-15.5) % Lymphocytes # 0.6 L (1.0-4.8) k/uL Chloride 109 H (98-107) mmol/L BUN (9-20) mg/dL Creatinine 0.60 L (0.66-1.25) mg/dL Glucose 149 H (74-99) mg/dL POC Glucose (mg/dL) (75-99) mg/dL Calcium (8.4-10.2) mg/dL Phosphorus 1.7 L (2.5-4.5) mg/dL AST (17-59) U/L ALT (21-72) U/L Ammonia 54 H (<30) umol/L Total Protein (6.3-8.2) g/dL Albumin (3.5-5.0) g/dL Lipase (23-300) U/L 02/15/17 02/15/17 02/15/17 Range/Units 06:06 07:23 12:16 WBC (3.8-10.6) k/uL RBC (4.30-5.90) m/uL Hgb (13.0-17.5) gm/dL Hct (39.0-53.0) % RDW (11.5-15.5) % Lymphocytes # (1.0-4.8) k/uL Chloride (98-107) mmol/L BUN (9-20) mg/dL Creatinine (0.66-1.25) mg/dL Glucose (74-99) mg/dL POC Glucose (mg/dL) 179 H 179 H 150 H (75-99) mg/dL Calcium (8.4-10.2) mg/dL Phosphorus (2.5-4.5) mg/dL AST (17-59) U/L ALT (21-72) U/L Ammonia (<30) umol/L Total Protein (6.3-8.2) g/dL Albumin (3.5-5.0) g/dL Lipase (23-300) U/L 02/15/17 Range/Units 13:06 WBC (3.8-10.6) k/uL RBC (4.30-5.90) m/uL Hgb (13.0-17.5) gm/dL Hct (39.0-53.0) % RDW (11.5-15.5) % Lymphocytes # (1.0-4.8) k/uL Chloride (98-107) mmol/L BUN 8 L (9-20) mg/dL Creatinine 0.60 L (0.66-1.25) mg/dL Glucose 142 H (74-99) mg/dL POC Glucose (mg/dL) (75-99) mg/dL Calcium 8.2 L (8.4-10.2) mg/dL Phosphorus (2.5-4.5) mg/dL AST 96 H (17-59) U/L ALT 687 H (21-72) U/L Ammonia (<30) umol/L Total Protein 5.1 L (6.3-8.2) g/dL Albumin 3.0 L (3.5-5.0) g/dL Lipase 1407 H (23-300) U/L Microbiology - Last 24 Hours (Table) 02/13/17 20:50 Urine Culture - Final Urine,Catheterized 02/13/17 21:32 Blood Culture - Preliminary Blood No Growth after 24 hours Assessment and Plan Plan: Impression: 1 acute metabolic encephalopathy secondary to hypotension, acute kidney injury and renal failure, and acute shock liver. Significant improvement has been noted in the last 24 hours thelabstoday. 2 history of previous CVA and hemicraniectomy on 04/16/2015, 3 history of seizure disorder maintained on Keppra 4 history of alcohol abuse and alcoholism. 5 history of protein C deficiency 6 history of patent foramen ovale 7 history of ADHD 8 possible sepsis on admission, primary source is not clear at this point, patient will remain on empiric antibiotics. 9 anemia, most likely secondary to GI blood losses, probably secondary to elevated INR upon presentation, this will have to be further investigated. 10 subacute pancreatitis considering his elevated lipase with normal amylase on admission. Recommendation: Continue present supportive care measures, continue to hydrate the patient, monitor his metabolic abnormalities closely including his renal profile and liver profile. Continue to monitor for possible alcohol withdrawal and keep the patient on Ativan protocol. In the meantime empiric antibiotics were given, cultures are pending. We'll continue to follow, prognosis is definitely guarded. Time with Patient: Less than 30
[2017-02-15] MEDS: hydrALAZINE HCL 20 MG/ML 1 ML VIAL IVP PRN (17:06)
[2017-02-15 17:29] LABS: Glucose,Whole Blood 136 mg/dL (75-99)
[2017-02-15 21:09] LABS: Glucose,Whole Blood 138 mg/dL (75-99)
[2017-02-16 00:28] LABS: Glucose,Whole Blood 125 mg/dL (75-99)
[2017-02-16] MEDS: INSULIN LISPRO (humaLOG) 300 UNIT/3 ML VIAL SQ SCH ×4 (00:29→17:54)
[2017-02-16] MEDS: SODIUM CHLORIDE 0.9% 1,000 ML IV SCH ×3 (00:30→16:21)
[2017-02-16] MEDS: LORazepam 2 MG/ML SYRINGE IV PRN (00:38)
[2017-02-16] MEDS: hydrALAZINE HCL 20 MG/ML 1 ML VIAL IVP PRN ×3 (00:38→14:30)
[2017-02-16] MEDS ORDERED: HALOPERIDOL LACTATE 5 MG/ML 1 ML VIAL IVP STA (02:10)
[2017-02-16] MEDS ORDERED: hydrALAZINE HCL 20 MG/ML 1 ML VIAL IVP STA (02:10)
[2017-02-16 06:37] LABS: Glucose,Whole Blood 139 mg/dL (75-99)
[2017-02-16] MEDS: levETIRAcetam IV 750 MG in SODIUM CHLORIDE 0.9% 100 ML IVPB SCH ×2 (08:36→17:53)
[2017-02-16] MEDS: FERROUS SULFATE 325 MG TAB PO SCH ×2 (08:37→17:55)
[2017-02-16] MEDS: LACTULOSE 20 GM/30 ML CUP PO SCH ×4 (08:40→21:23)
[2017-02-16] MEDS: THIAMINE 100 MG TAB PO SCH ×2 (08:41→16:21)
[2017-02-16] MEDS: RIFAXIMIN 550 MG TABLET PO SCH ×2 (08:41→21:23)
[2017-02-16] MEDS: PANTOPRAZOLE 40 MG/10 ML VIAL IV SCH ×2 (08:41→21:23)
[2017-02-16 09:31] LABS: Anion Gap 8 mmol/L; Blood Urea Nitrogen 7 mg/dL (9-20); Calcium 8.4 mg/dL (8.4-10.2); Carbon Dioxide 27 mmol/L (22-30); Chloride 109 mmol/L (98-107); Glucose 123 mg/dL (74-99); Magnesium 1.5 mg/dL (1.6-2.3); Non-African American GFR(MDRD) >60 (>60 ml/min/1.73 sqM); Phosphorous 2.8 mg/dL (2.5-4.5); Potassium 3.5 mmol/L (3.5-5.1); Sodium 144 mmol/L (137-145)
--- NOTE | 2017-02-16 09:39 | P.PN ---
Subjective Principal diagnosis: EtOH abuse hepatic encephalopathy 46-year-old male with a history of alcohol abuse, protein C deficiency, PFO, previous CVA with hemicraniotomy [employer] shunt presents with mental status changes and profound coagulopathy possible sepsis. Nursing reports no further bloody bowel movement liquid yellow. One more emesis yesterday none since. Pancreatitc enzymes increasd yesterday. Sitter at bedside. Objective - Vital Signs Vital signs: Vital Signs Temp 98.4 F 02/16/17 08:00 Pulse 85 02/16/17 09:00 Resp 17 02/16/17 09:00 BP 174/85 02/16/17 09:00 Pulse Ox 100 02/16/17 09:00 Intake & Output 02/15/17 02/16/17 02/16/17 18:59 06:59 18:59 Intake Total 1830 1060 425 Output Total 1876 1145 250 Balance -46 -85 175 Weight 82.6 kg Intake: IV 380 825 150 0.9 at KVO 0 Dextrose 5% in Water 1, 380 000 ml @ 80 mls/hr IV . [id number] MO with Sodium Bicarb (1 Meq/ml) 150 ml Rx#:[id number] Sodium Chloride 0.9% 1, 825 150 000 ml @ 75 mls/hr IV . [id number] MO Rx#:[id number] Intake, IV Titration 1450 175 275 Amount Magnesium Sulfate-D5w Pmx 200 1 gm In Dextrose/Water 1 100ml.bag @ 100 mls/hr IVPB Q1H MO Rx#: [id number] Potassium Chloride 10 meq 200 In Water For Injection 1 100ml.bag @ 100 mls/hr IVPB Q1H MO Rx#: [id number] Potassium Chloride 10 meq 200 Lidocaine 2% Inj 10 mg In Sodium Chloride 0.9% 100 ml @ 100 mls/hr IV Q1HR MO Rx#:[id number] Sodium Chloride 0.9% 1, 125 000 ml @ 125 mls/hr IV . Q8H MO Rx#:[id number] Sodium Chloride 0.9% 1, 300 75 000 ml @ 75 mls/hr IV . [id number] MO Rx#:[id number] Sodium Phosphate 10 mmol 500 In Sodium Chloride 0.9% 250 ml @ 125 mls/hr IVPB Q2H MO Rx#:[id number] cefTRIAXone 1,000 mg In 50 50 Sodium Chloride 0.9% 50 ml @ 100 mls/hr IVPB Q24HR [facility] Rx#:[id number] levETIRAcetam IV 750 mg 100 100 In Sodium Chloride 0.9% 100 ml @ 215 mls/hr IVPB Q12HR@0600,1800 [facility] Rx#: [id number] Oral 60 Output: Urine 1875 1145 250 Emesis 1 Other: Voiding Method Indwelling Catheter Indwelling Catheter # Bowel Movements 1 1 # Emeses 1 - Exam General appearance: Patient is obtunded and unable to hold conversation moaning , sleeping. Sitter at bedside. HET: Head is normocephalic and atraumatic. Pupils are equal and reactive. Oropharynx is clear without lesions. Neck: Supple without lymphadenopathy. Trachea midline. Heart: S1 S2. Regular rate and rhythm. Lungs: No crackles or wheezes are heard. Abdomen: Soft, nondistended with bowel sounds. No peritoneal signs. No palpable organomegaly or masses. Extremities: Normal skin color and turgor. No cyanosis, rash, ulceration, clubbing, or edema. Radial and pedal pulses are 2/4 bilaterally. Folly with sade urine. Neurological: Right hemiparesis. - Labs CBC & Chem 7: 02/15/17 05:42 02/15/17 19:35 Labs: Abnormal Lab Results - Last 24 Hours (Table) 02/15/17 02/15/17 02/15/17 Range/Units 12:16 13:06 17:28 BUN 8 L (9-20) mg/dL Creatinine 0.60 L (0.66-1.25) mg/dL Glucose 142 H (74-99) mg/dL POC Glucose (mg/dL) 150 H 136 H (75-99) mg/dL Calcium 8.2 L (8.4-10.2) mg/dL AST 96 H (17-59) U/L ALT 687 H (21-72) U/L Total Protein 5.1 L (6.3-8.2) g/dL Albumin 3.0 L (3.5-5.0) g/dL Lipase 1407 H (23-300) U/L 02/15/17 02/16/17 02/16/17 Range/Units 21:07 00:27 06:35 BUN (9-20) mg/dL Creatinine (0.66-1.25) mg/dL Glucose (74-99) mg/dL POC Glucose (mg/dL) 138 H 125 H 139 H (75-99) mg/dL Calcium (8.4-10.2) mg/dL AST (17-59) U/L ALT (21-72) U/L Total Protein (6.3-8.2) g/dL Albumin (3.5-5.0) g/dL Lipase (23-300) U/L Microbiology - Last 24 Hours (Table) 02/13/17 21:32 Blood Culture - Preliminary Blood No Growth after 48 hours 02/13/17 20:50 Urine Culture - Final Urine,Catheterized Assessment and Plan Plan: 1. Metabolic encephalopathy with superimposed hepatic encephalopathy with elevated ammonia level today with history of EtOH abuse. Continue CIWA protocol Possible sepsis. 2. History of CVA requiring craniotomy and [employer]GER shunt. 3. Protein C deficiency anticoagulation on hold. Receiving Lovenox daily. 4. Warfarin-induced coagulopathy resolved. 5. History of PFO. 6. GI bleed with reported maroon liquid stools by nursing staff; currently passing nonbloody bowel movements. 7. Anemia hypochromic normocytic suspect component of acute blood loss. 8. Hypotension on admission with elevated transaminases; improving with mild hyperbilirubinemia suspect component of ischemic hepatitis with superimposed alcohol hepatitis possible alcohol pancreatitis with elevated lipase on admission 884. Plan: 1. Continue lactulose as directed. Xifaxan. Daily ammonia levels. Check LFTs , lipase today. 2. Continue with IV Protonix twice daily. 3. Monitor CBC. Will obtain iron indices. 4. Endoscopy contingent on clinical course but not planned at this time will continue to assess daily. Assessment and plan of care discussed with Dr. Smith.
[2017-02-16 09:42] LABS: Anisocytosis Moderate; Basophils % (A) 0 %; CH 28.4; CHCM 30.2; Eosinophils # (A) 0.1 k/uL (0-0.7); Eosinophils % (A) 2 %; HCT 22.1 % (39.0-53.0); Hypochromasia Moderate; Luc # (Auto) 0.13; Luc % (Auto) 3; Lymphocytes % (A) 25 %; MCH 29.5 pg (25.0-35.0); MCHC 31.4 g/dL (31.0-37.0); MCV 94.2 fL (80.0-100.0); Macrocytosis Slight; Mean Platelet Volume 7.7; Monocytes # (A) 0.3 k/uL (0-1.0); Monocytes % (A) 8 %; Neutrophils # (A) 2.3 k/uL (1.3-7.7); Neutrophils % (A) 61 %; RBC 2.34 m/uL (4.30-5.90); RDW 20.1 % (11.5-15.5); WBC 3.8 k/uL (3.8-10.6); WBC (Perox) 4.13
[2017-02-16 10:03] LABS: HGB 6.9 gm/dL (13.0-17.5)
[2017-02-16] MEDS: MAGNESIUM SULFATE-D5W PMX 1 GM in DEXTROSE/WATER 1 100ML.BAG IVPB SCH ×2 (11:04→13:02)
[2017-02-16] MEDS: POTASSIUM CHLORIDE ER 20 MEQ TAB.ER PO SCH ×2 (11:04→13:03)
--- NOTE | 2017-02-16 12:07 | P.PN ---
Subjective Patient is doing a lot better today. He is more awake and is almost back to his more normal self. He is agitated at time and trying to get out of bed Objective - Vital Signs Vital signs: Vital Signs Temp 98.4 F 02/16/17 08:00 Pulse 80 02/16/17 11:00 Resp 16 02/16/17 11:00 BP 169/86 02/16/17 11:00 Pulse Ox 99 02/16/17 11:00 Intake & Output 02/15/17 02/16/17 02/16/17 18:59 06:59 18:59 Intake Total 1830 1060 775 Output Total 1876 1145 375 Balance -46 -85 400 Weight 82.6 kg Intake: IV 380 825 150 0.9 at KVO 0 Dextrose 5% in Water 1, 380 000 ml @ 80 mls/hr IV . [id number] MO with Sodium Bicarb (1 Meq/ml) 150 ml Rx#:[id number] Sodium Chloride 0.9% 1, 825 150 000 ml @ 75 mls/hr IV . [id number] MO Rx#:[id number] Intake, IV Titration 1450 175 625 Amount Magnesium Sulfate-D5w Pmx 200 1 gm In Dextrose/Water 1 100ml.bag @ 100 mls/hr IVPB Q1H MO Rx#: [id number] Magnesium Sulfate-D5w Pmx 100 1 gm In Dextrose/Water 1 100ml.bag @ 100 mls/hr IVPB Q1H MO Rx#: [id number] Potassium Chloride 10 meq 200 In Water For Injection 1 100ml.bag @ 100 mls/hr IVPB Q1H [facility] Rx#: [id number] Potassium Chloride 10 meq 200 Lidocaine 2% Inj 10 mg In Sodium Chloride 0.9% 100 ml @ 100 mls/hr IV Q1HR [facility] Rx#:[id number] Sodium Chloride 0.9% 1, 375 000 ml @ 125 mls/hr IV . Q8H MO Rx#:[id number] Sodium Chloride 0.9% 1, 300 75 000 ml @ 75 mls/hr IV . [id number] MO Rx#:[id number] Sodium Phosphate 10 mmol 500 In Sodium Chloride 0.9% 250 ml @ 125 mls/hr IVPB Q2H MO Rx#:[id number] cefTRIAXone 1,000 mg In 50 50 Sodium Chloride 0.9% 50 ml @ 100 mls/hr IVPB Q24HR [facility] Rx#:[id number] levETIRAcetam IV 750 mg 100 100 In Sodium Chloride 0.9% 100 ml @ 215 mls/hr IVPB Q12HR@0600,1800 [facility] Rx#: [id number] Oral 60 Output: Urine 1875 1145 375 Emesis 1 Other: Voiding Method Indwelling Catheter Indwelling Catheter Indwelling Catheter # Bowel Movements 1 1 # Emeses 1 - Exam General: The patient is awake and alert, Eye: there is normal conjunctiva bilaterally. Neck: The neck is supple, there is no JVD. Cardiovascular: Normal S1-S2, no S3-S4, no murmurs. Respiratory: Lungs with scattered rhonchi Gastrointestinal: Abdomen is soft, nontender Musculoskeletal: There is no pedal edema. Skin: Skin is warm and dry - Labs CBC & Chem 7: 02/16/17 08:51 02/16/17 08:51 Labs: Abnormal Lab Results - Last 24 Hours (Table) 02/15/17 02/15/17 02/15/17 Range/Units 12:16 13:06 17:28 RBC (4.30-5.90) m/uL Hgb (13.0-17.5) gm/dL Hct (39.0-53.0) % RDW (11.5-15.5) % Chloride (98-107) mmol/L BUN 8 L (9-20) mg/dL Creatinine 0.60 L (0.66-1.25) mg/dL Glucose 142 H (74-99) mg/dL POC Glucose (mg/dL) 150 H 136 H (75-99) mg/dL Calcium 8.2 L (8.4-10.2) mg/dL Magnesium (1.6-2.3) mg/dL AST 96 H (17-59) U/L ALT 687 H (21-72) U/L Total Protein 5.1 L (6.3-8.2) g/dL Albumin 3.0 L (3.5-5.0) g/dL Lipase 1407 H (23-300) U/L 02/15/17 02/16/17 02/16/17 Range/Units 21:07 00:27 06:35 RBC (4.30-5.90) m/uL Hgb (13.0-17.5) gm/dL Hct (39.0-53.0) % RDW (11.5-15.5) % Chloride (98-107) mmol/L BUN (9-20) mg/dL Creatinine (0.66-1.25) mg/dL Glucose (74-99) mg/dL POC Glucose (mg/dL) 138 H 125 H 139 H (75-99) mg/dL Calcium (8.4-10.2) mg/dL Magnesium (1.6-2.3) mg/dL AST (17-59) U/L ALT (21-72) U/L Total Protein (6.3-8.2) g/dL Albumin (3.5-5.0) g/dL Lipase (23-300) U/L 02/16/17 02/16/17 Range/Units 08:51 08:51 RBC 2.34 L (4.30-5.90) m/uL Hgb 6.9 L* (13.0-17.5) gm/dL Hct 22.1 L (39.0-53.0) % RDW 20.1 H (11.5-15.5) % Chloride 109 H (98-107) mmol/L BUN 7 L (9-20) mg/dL Creatinine 0.62 L (0.66-1.25) mg/dL Glucose 123 H (74-99) mg/dL POC Glucose (mg/dL) (75-99) mg/dL Calcium (8.4-10.2) mg/dL Magnesium 1.5 L (1.6-2.3) mg/dL AST (17-59) U/L ALT (21-72) U/L Total Protein (6.3-8.2) g/dL Albumin (3.5-5.0) g/dL Lipase (23-300) U/L Microbiology - Last 24 Hours (Table) 02/13/17 21:32 Blood Culture - Preliminary Blood No Growth after 48 hours 02/13/17 20:50 Urine Culture - Final Urine,Catheterized Assessment and Plan Plan: 1. Acute kidney injury, now resolved kidney function back to normal 2. Acute liver failure with transaminitis 3. Acute encephalopathy secondary to #1 and 2, now resolved 4. Sepsis with septic shock 5. Urinary tract infection on IV ceftriaxone. Urine culture negative. Will finish 5 days course of antibiotic. Stop date 02/18 6. Supratherapeutic INR reversed with vitamin K on presentation 7. 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 patient is following closely with neurology/neurosurgery as an outpatient 8. Protein C deficiency 9. Underlying patent foramen ovale with [id number] shunt: Anticoagulation on hold right now 10. Alcohol abuse 11. Seizure disorder: Maintained on Keppra 12. Hypertension 13. ADHD: maintained on Adderral 10 mg twice a day at home 14. Suspected upper GI bleed and blood loss anemia: GI following. for endoscopy at this time. This is a 46-year-old gentleman with a very complex past medical history noted above who presented to the hospital with evidence of sepsis with septic shock as well as dehydration and intravascular depletion. He had multiple and organ damage involving acute kidney and acute liver failure. He was resuscitated adequately with IV fluid. His overall condition improved significantly since admission. I discussed with his over the phone his current condition and answered all her questions to her satisfaction. Patient is stable to be transferred to a general practitioner at outside the intensive care unit.
[2017-02-16] MEDS ORDERED: LISINOPRIL 2.5 MG TAB PO STA (12:15)
--- NOTE | 2017-02-16 12:38 | P.PN ---
Subjective Principal diagnosis: Acute metabolic encephalopathy and hypotension with acute kidney injury and acute shock liver. This is a 46-year-old white male, alcohol, history of previous CVA in 2015, with midline shift requiring hemicraniotomy and subsequent chronic PORTFOLIO MGR shunt placement. Patient sustained chronic right-sided hemiparesis. Patient was brought into the ER with mostly mental status change and up on the patient. Upon presentation to the ER, patient was found to have hypotension, there was also evidence of significant abnormal labs including shock liver and acute renal failure. Patient was resuscitated with IV fluids aggressively, blood pressure was noted to improve. His renal profile and liver profile were noted to trend down patient was eventually admitted to the intensive care unit, and I was asked to see him on consultation. Not much information was obtained from the patient as he is a poor historian, but all the information was obtained from the chart. Labs up on admission showed a low hemoglobin of 7.7, INR of 3.2 , BUN of 56 and creatinine of 4.10, elevated transaminases with AST of 641 ALT of 1292, amylase of 884, ammonia level of 34, lactic acid of 1.4. Urine showed evidence of hematuria and slight bacteriuria drug screen was positive for opiates, oxycodone, try cyclic antidepressants, and benzodiazepines. Considering the presentation and considering the patient had to be admitted to the intensive care unit, I was asked to see him on consultation. Again the patient is an extremely poor historian. Patient was reevaluated today on 02/15/2017, patient is hemodynamically stable, pulmonary-slater he also seems to be stable, GI-slater however the patient is having significant amount of maroon colored stools, and GI was consulted. In the meantime we would place his Lovenox on hold and will use Venodyne boots for DVT prophylaxis. His hemoglobin is 7.3 today, and that is being addressed by gastroenterology on the case. The rest of the labs are showing significant improvement. Liver enzymes are also improved. Lipase is noted to be higher now , and ammonia level is also high today at 54. Patient was placed on lactulose, however probably was not absorptions the patient was vomiting. Patient was placed on rifaximin 550 mg by mouth twice a day. Pulmonary-slater, no cough, no shortness of breath, no wheezing. Patient was reevaluated today on 02/16/2017, continues to have intermittent episodes of agitation, required Haldol earlier today, and that seemed to work well for the patient. Patient is also on alcohol withdrawal protocol. No further episodes of GI bleeding. No shortness of breath, patient is not in any form of respiratory distress. And because of his GI bleeding we held his Lovenox, and remains on hold. Labs today were reviewed, hemoglobin is 6.9, hence the patient will likely benefit from a unit of packed RBC to be transfused today. CBC is relatively normal. Renal profile is normal. Liver profile is significantly improved. Objective - Vital Signs Vital signs: Vital Signs Temp 98.4 F 02/16/17 08:00 Pulse 80 02/16/17 11:00 Resp 16 02/16/17 11:00 BP 169/86 02/16/17 11:00 Pulse Ox 99 02/16/17 11:00 Intake & Output 02/15/17 02/16/17 02/16/17 18:59 06:59 18:59 Intake Total 1830 1060 775 Output Total 1876 1145 375 Balance -46 -85 400 Weight 82.6 kg Intake: IV 380 825 150 0.9 at KVO 0 Dextrose 5% in Water 1, 380 000 ml @ 80 mls/hr IV . [id number] [place] with Sodium Bicarb (1 Meq/ml) 150 ml Rx#:[id number] Sodium Chloride 0.9% 1, 825 150 000 ml @ 75 mls/hr IV . [id number] MO Rx#:[id number] Intake, IV Titration 1450 175 625 Amount Magnesium Sulfate-D5w Pmx 200 1 gm In Dextrose/Water 1 100ml.bag @ 100 mls/hr IVPB Q1H [facility] Rx#: [id number] Magnesium Sulfate-D5w Pmx 100 1 gm In Dextrose/Water 1 100ml.bag @ 100 mls/hr IVPB Q1H [facility] Rx#: [id number] Potassium Chloride 10 meq 200 In Water For Injection 1 100ml.bag @ 100 mls/hr IVPB Q1H [facility] Rx#: [id number] Potassium Chloride 10 meq 200 Lidocaine 2% Inj 10 mg In Sodium Chloride 0.9% 100 ml @ 100 mls/hr IV Q1HR [facility] Rx#:[id number] Sodium Chloride 0.9% 1, 375 000 ml @ 125 mls/hr IV . Q8H [facility] Rx#:[id number] Sodium Chloride 0.9% 1, 300 75 000 ml @ 75 mls/hr IV . [id number] [facility] Rx#:[id number] Sodium Phosphate 10 mmol 500 In Sodium Chloride 0.9% 250 ml @ 125 mls/hr IVPB Q2H [facility] Rx#:[id number] cefTRIAXone 1,000 mg In 50 50 Sodium Chloride 0.9% 50 ml @ 100 mls/hr IVPB Q24HR [facility] Rx#:[id number] levETIRAcetam IV 750 mg 100 100 In Sodium Chloride 0.9% 100 ml @ 215 mls/hr IVPB Q12HR@0600,1800 [facility] Rx#: [id number] Oral 60 Output: Urine 1875 1145 375 Emesis 1 Other: Voiding Method Indwelling Catheter Indwelling Catheter Indwelling Catheter # Bowel Movements 1 1 # Emeses 1 - Exam General appearance: Patient is sedated, received Haldol earlier. HET: Head is normocephalic and atraumatic. Pupils are equal and reactive. Oropharynx is clear without lesions. Neck: Supple without lymphadenopathy. Trachea midline. Heart: S1 S2. Regular rate and rhythm. Lungs: Diminished breath sounds at the bases no crackles or rhonchi or wheezes Abdomen: Soft, nondistended with bowel sounds. No peritoneal signs. No palpable organomegaly or masses. Extremities: Normal skin color and turgor. No cyanosis, rash, ulceration, clubbing, or edema. - Labs CBC & Chem 7: 02/16/17 08:51 02/16/17 08:51 Labs: Abnormal Lab Results - Last 24 Hours (Table) 02/15/17 02/15/17 02/15/17 Range/Units 13:06 17:28 21:07 RBC (4.30-5.90) m/uL Hgb (13.0-17.5) gm/dL Hct (39.0-53.0) % RDW (11.5-15.5) % Chloride (98-107) mmol/L BUN 8 L (9-20) mg/dL Creatinine 0.60 L (0.66-1.25) mg/dL Glucose 142 H (74-99) mg/dL POC Glucose (mg/dL) 136 H 138 H (75-99) mg/dL Calcium 8.2 L (8.4-10.2) mg/dL Magnesium (1.6-2.3) mg/dL AST 96 H (17-59) U/L ALT 687 H (21-72) U/L Total Protein 5.1 L (6.3-8.2) g/dL Albumin 3.0 L (3.5-5.0) g/dL Lipase 1407 H (23-300) U/L 02/16/17 02/16/17 02/16/17 Range/Units 00:27 06:35 08:51 RBC (4.30-5.90) m/uL Hgb (13.0-17.5) gm/dL Hct (39.0-53.0) % RDW (11.5-15.5) % Chloride 109 H (98-107) mmol/L BUN 7 L (9-20) mg/dL Creatinine 0.62 L (0.66-1.25) mg/dL Glucose 123 H (74-99) mg/dL POC Glucose (mg/dL) 125 H 139 H (75-99) mg/dL Calcium (8.4-10.2) mg/dL Magnesium 1.5 L (1.6-2.3) mg/dL AST (17-59) U/L ALT (21-72) U/L Total Protein (6.3-8.2) g/dL Albumin (3.5-5.0) g/dL Lipase (23-300) U/L 02/16/17 Range/Units 08:51 RBC 2.34 L (4.30-5.90) m/uL Hgb 6.9 L* (13.0-17.5) gm/dL Hct 22.1 L (39.0-53.0) % RDW 20.1 H (11.5-15.5) % Chloride (98-107) mmol/L BUN (9-20) mg/dL Creatinine (0.66-1.25) mg/dL Glucose (74-99) mg/dL POC Glucose (mg/dL) (75-99) mg/dL Calcium (8.4-10.2) mg/dL Magnesium (1.6-2.3) mg/dL AST (17-59) U/L ALT (21-72) U/L Total Protein (6.3-8.2) g/dL Albumin (3.5-5.0) g/dL Lipase (23-300) U/L Microbiology - Last 24 Hours (Table) 02/13/17 21:32 Blood Culture - Preliminary Blood No Growth after 48 hours 02/13/17 20:50 Urine Culture - Final Urine,Catheterized Assessment and Plan Plan: Impression: 1 acute metabolic encephalopathy secondary to hypotension, acute kidney injury and renal failure, and acute shock liver. Significant improvement has been noted in the last 3 days. 2 history of previous CVA and hemicraniectomy on 04/16/2015, 3 history of seizure disorder maintained on Keppra 4 history of alcohol abuse and alcoholism. 5 history of protein C deficiency 6 history of patent foramen ovale 7 history of ADHD 8 possible sepsis on admission, primary source is not clear at this point, patient will remain on empiric antibiotics. 9 anemia, most likely secondary to GI blood losses, probably secondary to elevated INR upon presentation, this will have to be further investigated. Patient will receive a unit of packed RBCs today because of his hemoglobin of 6.9. 10 subacute pancreatitis considering his elevated lipase with normal amylase on admission. Recommendation: Continue present supportive care measures, continue to hydrate the patient, monitor his metabolic abnormalities closely including his renal profile and liver profile. Continue to monitor for possible alcohol withdrawal and keep the patient on Ativan protocol. In the meantime empiric antibiotics were given, cultures are negative. We'll continue to follow, prognosis is definitely guarded. Consider transferring the patient out of the ICU to a regular medical floor. Time with Patient: Less than 30
[2017-02-16] MEDS: DILTIAZEM CD 120 MG CAP.ER.24H PO SCH (13:02)
[2017-02-16 13:07] LABS: Glucose,Whole Blood 136 mg/dL (75-99)
[2017-02-16] MEDS: diphenhydrAMINE 50 MG/ML 1 ML VIAL IVP SCH (17:01)
[2017-02-16 17:54] LABS: Glucose,Whole Blood 147 mg/dL (75-99)
[2017-02-16] MEDS: HYDROmorphone 1 MG/ML 1 ML SYRINGE IVP PRN (20:17)
[2017-02-16 20:49] LABS: Anisocytosis Moderate; CH 28.7; CHCM 31.7; HCT 24.3 % (39.0-53.0); HDW 3.23; Hypochromasia Slight; MCHC 32.9 g/dL (31.0-37.0); MCV 91.1 fL (80.0-100.0); Macrocytosis Slight; Mean Platelet Volume 7.7; RBC 2.67 m/uL (4.30-5.90); RDW 20.8 % (11.5-15.5); WBC 4.6 k/uL (3.8-10.6)
[2017-02-16] MEDS: PRAVASTATIN SODIUM 40 MG TAB PO SCH (21:23)
[2017-02-16] MEDS: TEMAZEPAM 30 MG CAP PO SCH (21:23)
[2017-02-17 00:34] LABS: Glucose,Whole Blood 100 mg/dL (75-99)
[2017-02-17] MEDS: diphenhydrAMINE 50 MG/ML 1 ML VIAL IVP SCH ×3 (01:47→17:17)
[2017-02-17] MEDS: INSULIN LISPRO (humaLOG) 300 UNIT/3 ML VIAL SQ SCH ×5 (01:50→23:44)
[2017-02-17 06:13] LABS: Glucose,Whole Blood 102 mg/dL (75-99)
[2017-02-17] MEDS: LISINOPRIL 2.5 MG TAB PO SCH (06:30)
[2017-02-17] MEDS: DILTIAZEM CD 120 MG CAP.ER.24H PO SCH (06:30)
[2017-02-17] MEDS: levETIRAcetam IV 750 MG in SODIUM CHLORIDE 0.9% 100 ML IVPB SCH ×2 (06:30→17:16)
[2017-02-17] MEDS: FERROUS SULFATE 325 MG TAB PO SCH ×2 (06:30→17:17)
[2017-02-17 07:49] LABS: Glucose,Whole Blood 107 mg/dL (75-99)
[2017-02-17 08:38] LABS: Anisocytosis Moderate; Basophils % (A) 0 %; CH 28.8; CHCM 31.3; Eosinophils # (A) 0.2 k/uL (0-0.7); Eosinophils % (A) 4 %; HCT 24.3 % (39.0-53.0); HGB 7.7 gm/dL (13.0-17.5); Hypochromasia Slight; Luc # (Auto) 0.18; Luc % (Auto) 4; Lymphocytes # (A) 1.4 k/uL (1.0-4.8); Lymphocytes % (A) 30 %; MCH 29.4 pg (25.0-35.0); MCHC 31.8 g/dL (31.0-37.0); MCV 92.4 fL (80.0-100.0); Macrocytosis Slight; Mean Platelet Volume 7.8; Monocytes # (A) 0.4 k/uL (0-1.0); Monocytes % (A) 8 %; Neutrophils # (A) 2.5 k/uL (1.3-7.7); Neutrophils % (A) 54 %; RBC 2.63 m/uL (4.30-5.90); RDW 20.7 % (11.5-15.5); WBC 4.6 k/uL (3.8-10.6); WBC (Perox) 4.46
[2017-02-17] MEDS: SODIUM CHLORIDE 0.9% 1,000 ML IV SCH ×2 (08:38)
[2017-02-17] MEDS: LACTULOSE 20 GM/30 ML CUP PO SCH ×3 (08:40→12:21)
[2017-02-17] MEDS: PANTOPRAZOLE 40 MG TABLET PO SCH ×2 (08:40→18:08)
[2017-02-17] MEDS: RIFAXIMIN 550 MG TABLET PO SCH ×2 (08:41→21:19)
[2017-02-17 09:57] LABS: ALT 403 U/L (21-72); AST 56 U/L (17-59); Alkaline Phosphatase 66 U/L (38-126); Anion Gap 6 mmol/L; Blood Urea Nitrogen 7 mg/dL (9-20); Calcium 8.4 mg/dL (8.4-10.2); Carbon Dioxide 23 mmol/L (22-30); Chloride 110 mmol/L (98-107); Glucose 98 mg/dL (74-99); Magnesium 1.5 mg/dL (1.6-2.3); Non-African American GFR(MDRD) >60 (>60 ml/min/1.73 sqM); Phosphorous 2.9 mg/dL (2.5-4.5); Potassium 3.8 mmol/L (3.5-5.1); Sodium 139 mmol/L (137-145); Total Bilirubin 1.4 mg/dL (0.2-1.3); Total Protein 5.4 g/dL (6.3-8.2)
--- NOTE | 2017-02-17 10:43 | P.PN ---
Subjective Principal diagnosis: EtOH abuse hepatic encephalopathy 46-year-old male with a history of alcohol abuse, protein C deficiency, PFO, previous CVA with hemicraniotomy MGMT CONSULTANT shunt presents with mental status changes and profound coagulopathy possible sepsis. Nursing reports no further bloody bowel movement liquid yellow. No emesis x 48 hours. Hemoglobin 6.9 yesterday GI service was not notified. He received 1 unit of blood and repeat hemoglobin this morning is 7.7. Liver enzymes have improved. Lipase not obtained today. Ammonia level 27 today. Sitter at bedside. Objective - Vital Signs Vital signs: Vital Signs Temp 98.9 F 02/17/17 07:00 Pulse 80 02/17/17 07:00 Resp 18 02/17/17 07:00 BP 147/104 02/17/17 07:00 Pulse Ox 96 02/17/17 07:00 Intake & Output 02/16/17 02/17/17 02/17/17 18:59 06:59 18:59 Intake Total 1085 1100 Output Total 825 Balance 260 1100 Weight 82.6 kg Intake: IV 150 Sodium Chloride 0.9% 1, 150 000 ml @ 75 mls/hr IV . [id number] [facility] Rx#:[id number] Intake, IV Titration 625 1100 Amount Magnesium Sulfate-D5w Pmx 100 1 gm In Dextrose/Water 1 100ml.bag @ 100 mls/hr IVPB Q1H [facility] Rx#: [id number] Sodium Chloride 0.9% 1, 375 1100 000 ml @ 100 mls/hr IV . Q10H [facility] Rx#:[id number] cefTRIAXone 1,000 mg In 50 Sodium Chloride 0.9% 50 ml @ 100 mls/hr IVPB Q24HR [facility] Rx#:[id number] levETIRAcetam IV 750 mg 100 In Sodium Chloride 0.9% 100 ml @ 215 mls/hr IVPB Q12HR@0600,1800 [facility] Rx#: [id number] Blood Product 310 Rc As-3 Unit 310 [id number] Output: Urine 825 Other: Voiding Method Indwelling Catheter Bedside Commode Bedside Commode Diaper Diaper # Voids 1 # Bowel Movements 4 3 - Exam General appearance: Patient is obtunded and unable to hold conversation moaning , sleeping. Sitter at bedside. HET: Head is normocephalic and atraumatic. Pupils are equal and reactive. Oropharynx is clear without lesions. Neck: Supple without lymphadenopathy. Trachea midline. Heart: S1 S2. Regular rate and rhythm. Lungs: No crackles or wheezes are heard. Abdomen: Soft, nondistended with bowel sounds. No peritoneal signs. No palpable organomegaly or masses. Extremities: Normal skin color and turgor. No cyanosis, rash, ulceration, clubbing, or edema. Radial and pedal pulses are 2/4 bilaterally. Neurological: Right hemiparesis. - Labs CBC & Chem 7: 02/17/17 08:10 02/17/17 08:10 Labs: Abnormal Lab Results - Last 24 Hours (Table) 02/16/17 02/16/17 02/16/17 Range/Units 11:29 13:05 17:52 RBC (4.30-5.90) m/uL Hgb (13.0-17.5) gm/dL Hct (39.0-53.0) % RDW (11.5-15.5) % Chloride (98-107) mmol/L BUN (9-20) mg/dL Creatinine (0.66-1.25) mg/dL POC Glucose (mg/dL) 136 H 147 H (75-99) mg/dL Magnesium (1.6-2.3) mg/dL Total Bilirubin (0.2-1.3) mg/dL ALT (21-72) U/L Total Protein (6.3-8.2) g/dL Albumin (3.5-5.0) g/dL Crossmatch See Detail 02/16/17 02/17/17 02/17/17 Range/Units 20:25 00:32 06:05 RBC 2.67 L (4.30-5.90) m/uL Hgb 8.0 L (13.0-17.5) gm/dL Hct 24.3 L (39.0-53.0) % RDW 20.8 H (11.5-15.5) % Chloride (98-107) mmol/L BUN (9-20) mg/dL Creatinine (0.66-1.25) mg/dL POC Glucose (mg/dL) 100 H 102 H (75-99) mg/dL Magnesium (1.6-2.3) mg/dL Total Bilirubin (0.2-1.3) mg/dL ALT (21-72) U/L Total Protein (6.3-8.2) g/dL Albumin (3.5-5.0) g/dL Crossmatch 02/17/17 02/17/17 02/17/17 Range/Units 07:47 08:10 08:10 RBC 2.63 L (4.30-5.90) m/uL Hgb 7.7 L (13.0-17.5) gm/dL Hct 24.3 L (39.0-53.0) % RDW 20.7 H (11.5-15.5) % Chloride 110 H (98-107) mmol/L BUN 7 L (9-20) mg/dL Creatinine 0.60 L (0.66-1.25) mg/dL POC Glucose (mg/dL) 107 H (75-99) mg/dL Magnesium 1.5 L (1.6-2.3) mg/dL Total Bilirubin 1.4 H (0.2-1.3) mg/dL ALT 403 H (21-72) U/L Total Protein 5.4 L (6.3-8.2) g/dL Albumin 3.0 L (3.5-5.0) g/dL Crossmatch Microbiology - Last 24 Hours (Table) 02/13/17 21:32 Blood Culture - Preliminary Blood No Growth after 72 hours Assessment and Plan Plan: 1. Metabolic encephalopathy with superimposed hepatic encephalopathy with elevated ammonia level today with history of EtOH abuse. Continue CIWA protocol Possible sepsis. 2. History of CVA requiring craniotomy and MGMT CONSULTANT shunt. 3. Protein C deficiency anticoagulation on hold. Receiving Lovenox daily. 4. Warfarin-induced coagulopathy resolved. 5. History of PFO. 6. GI bleed etiology unclear possible ischemic in nature with suspected component of alcohol gastropathy gastritis esophagitis exacerbated by coagulopathy with reported maroon liquid stools by nursing staff 3 days ago and decreased hemoglobin over the last 24 hours; currently passing nonbloody bowel movements status post transfusion. Hemoglobin presently 7.7. 7. Anemia hypochromic normocytic suspect component of acute blood loss. 8. Hypotension on admission with elevated transaminases; improving with mild hyperbilirubinemia suspect component of ischemic hepatitis with superimposed alcohol hepatitis possible alcohol pancreatitis with elevated lipase on admission 884. Plan: 1. Continue lactulose as directed hold dose if more than 4 bowel movements daily. Xifaxan. 2. Continue with IV Protonix twice daily. Continue full liquid diet. 3. Monitor CBC daily. iron indices reviewed no evidence to suggest iron deficiency anemia at this time 4. Endoscopy contingent on clinical course but not planned at this time will continue to assess daily. Assessment and plan of care discussed with Dr. Smith.
[2017-02-17 11:21] LABS: Glucose,Whole Blood 108 mg/dL (75-99)
[2017-02-17] MEDS: THIAMINE 100 MG TAB PO SCH ×2 (12:16→17:17)
[2017-02-17] MEDS: HYDROmorphone 1 MG/ML 1 ML SYRINGE IVP PRN ×4 (12:17→23:03)
--- NOTE | 2017-02-17 13:11 | P.PN ---
Subjective Principal diagnosis: Acute metabolic encephalopathy and hypotension with acute kidney injury and acute shock liver. 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 Patient sustained chronic right-sided hemiparesis. Patient was brought into the ER with mostly mental status change and up on the patient. Upon presentation to the ER, patient was found to have hypotension, there was also evidence of significant abnormal labs including shock liver and acute renal failure. Patient was resuscitated with IV fluids aggressively, blood pressure was noted to improve. His renal profile and liver profile were noted to trend down patient was eventually admitted to the intensive care unit, and I was asked to see him on consultation. Not much information was obtained from the patient as he is a poor historian, but all the information was obtained from the chart. Labs up on admission showed a low hemoglobin of 7.7, INR of 3.2 , BUN of 56 and creatinine of 4.10, elevated transaminases with AST of 641 ALT of 1292, amylase of 884, ammonia level of 34, lactic acid of 1.4. Urine showed evidence of hematuria and slight bacteriuria drug screen was positive for opiates, oxycodone, try cyclic antidepressants, and benzodiazepines. Considering the presentation and considering the patient had to be admitted to the intensive care unit, I was asked to see him on consultation. Again the patient is an extremely poor historian. Patient was reevaluated today on 02/15/2017, patient is hemodynamically stable, pulmonary-slater he also seems to be stable, GI-slater however the patient is having significant amount of maroon colored stools, and GI was consulted. In the meantime we would place his Lovenox on hold and will use Venodyne boots for DVT prophylaxis. His hemoglobin is 7.3 today, and that is being addressed by gastroenterology on the case. The rest of the labs are showing significant improvement. Liver enzymes are also improved. Lipase is noted to be higher now , and ammonia level is also high today at 54. Patient was placed on lactulose, however probably was not absorptions the patient was vomiting. Patient was placed on rifaximin 550 mg by mouth twice a day. Pulmonary-slater, no cough, no shortness of breath, no wheezing. Patient was reevaluated today on 02/16/2017, continues to have intermittent episodes of agitation, required Haldol earlier today, and that seemed to work well for the patient. Patient is also on alcohol withdrawal protocol. No further episodes of GI bleeding. No shortness of breath, patient is not in any form of respiratory distress. And because of his GI bleeding we held his Lovenox, and remains on hold. Labs today were reviewed, hemoglobin is 6.9, hence the patient will likely benefit from a unit of packed RBC to be transfused today. CBC is relatively normal. Renal profile is normal. Liver profile is significantly improved. The patient was seen again today 02/17/2017 in follow-up on the regular medical floor. Currently, he is resting fairly comfortably in bed. He is currently, and cooperative. He is maintaining good O2 saturations in the upper 90s on room air. He's been afebrile. No further active bleeding noted. His hemoglobin is 7.7 which is up from 6.9 following a unit of packed red blood cells yesterday. He did develop a reaction during the transfusion and required Benadryl. He has been hemodynamically stable. His AST has normalized to 56. ALT improved to 403. Renal function has improved current creatinine 0.60. Objective - Vital Signs Vital signs: Vital Signs Temp 98.9 F 02/17/17 07:00 Pulse 80 02/17/17 07:00 Resp 18 02/17/17 07:00 BP 147/104 02/17/17 07:00 Pulse Ox 96 02/17/17 07:00 Intake & Output 02/16/17 02/17/17 02/17/17 18:59 06:59 18:59 Intake Total 1085 1100 Output Total 825 Balance 260 1100 Weight 82.6 kg Intake: IV 150 Sodium Chloride 0.9% 1, 150 000 ml @ 75 mls/hr IV . [id number] MO Rx#:[id number] Intake, IV Titration 625 1100 Amount Magnesium Sulfate-D5w Pmx 100 1 gm In Dextrose/Water 1 100ml.bag @ 100 mls/hr IVPB Q1H MO Rx#: [id number] Sodium Chloride 0.9% 1, 375 1100 000 ml @ 100 mls/hr IV . Q10H MO Rx#:[id number] cefTRIAXone 1,000 mg In 50 Sodium Chloride 0.9% 50 ml @ 100 mls/hr IVPB Q24HR MO Rx#:[id number] levETIRAcetam IV 750 mg 100 In Sodium Chloride 0.9% 100 ml @ 215 mls/hr IVPB Q12HR@0600,1800 MO Rx#: [id number] Blood Product 310 Rc As-3 Unit 310 [id number] Output: Urine 825 Other: Voiding Method Indwelling Catheter Bedside Commode Bedside Commode Diaper Diaper # Voids 1 # Bowel Movements 4 3 - Exam GENERAL EXAM: Alert, comfortable in no apparent distress. HEAD: Normocephalic. EYES: Normal reaction of pupils, equal size. NOSE: Clear with pink turbinates. THROAT: No erythema or exudates. NECK: No masses, no JVD. CHEST: No chest wall deformity. LUNGS: Equal air entry with no crackles, wheeze, rhonchi or dullness. CVS: S1 and S2 normal with no audible mumurs, regular rhythm. ABDOMEN: No hepatosplenomegaly, normal bowel sounds, no guarding or rigidity. SPINE: No scoliosis or deformity SKIN: No rashes CENTRAL NERVOUS SYSTEM: No focal deficits, tone is normal in all 4 extremities. Extremities: There is no significant peripheral edema. No clubbing, no cyanosis. Peripheral pulses are intact. - Labs CBC & Chem 7: 02/17/17 08:10 02/17/17 08:10 Labs: Abnormal Lab Results - Last 24 Hours (Table) 02/16/17 02/16/17 02/16/17 Range/Units 11:29 13:05 17:52 RBC (4.30-5.90) m/uL Hgb (13.0-17.5) gm/dL Hct (39.0-53.0) % RDW (11.5-15.5) % Chloride (98-107) mmol/L BUN (9-20) mg/dL Creatinine (0.66-1.25) mg/dL POC Glucose (mg/dL) 136 H 147 H (75-99) mg/dL Magnesium (1.6-2.3) mg/dL Total Bilirubin (0.2-1.3) mg/dL ALT (21-72) U/L Total Protein (6.3-8.2) g/dL Albumin (3.5-5.0) g/dL Crossmatch See Detail 02/16/17 02/17/17 02/17/17 Range/Units 20:25 00:32 06:05 RBC 2.67 L (4.30-5.90) m/uL Hgb 8.0 L (13.0-17.5) gm/dL Hct 24.3 L (39.0-53.0) % RDW 20.8 H (11.5-15.5) % Chloride (98-107) mmol/L BUN (9-20) mg/dL Creatinine (0.66-1.25) mg/dL POC Glucose (mg/dL) 100 H 102 H (75-99) mg/dL Magnesium (1.6-2.3) mg/dL Total Bilirubin (0.2-1.3) mg/dL ALT (21-72) U/L Total Protein (6.3-8.2) g/dL Albumin (3.5-5.0) g/dL Crossmatch 02/17/17 02/17/17 02/17/17 Range/Units 07:47 08:10 08:10 RBC 2.63 L (4.30-5.90) m/uL Hgb 7.7 L (13.0-17.5) gm/dL Hct 24.3 L (39.0-53.0) % RDW 20.7 H (11.5-15.5) % Chloride 110 H (98-107) mmol/L BUN 7 L (9-20) mg/dL Creatinine 0.60 L (0.66-1.25) mg/dL POC Glucose (mg/dL) 107 H (75-99) mg/dL Magnesium 1.5 L (1.6-2.3) mg/dL Total Bilirubin 1.4 H (0.2-1.3) mg/dL ALT 403 H (21-72) U/L Total Protein 5.4 L (6.3-8.2) g/dL Albumin 3.0 L (3.5-5.0) g/dL Crossmatch 02/17/17 Range/Units 11:18 RBC (4.30-5.90) m/uL Hgb (13.0-17.5) gm/dL Hct (39.0-53.0) % RDW (11.5-15.5) % Chloride (98-107) mmol/L BUN (9-20) mg/dL Creatinine (0.66-1.25) mg/dL POC Glucose (mg/dL) 108 H (75-99) mg/dL Magnesium (1.6-2.3) mg/dL Total Bilirubin (0.2-1.3) mg/dL ALT (21-72) U/L Total Protein (6.3-8.2) g/dL Albumin (3.5-5.0) g/dL Crossmatch Microbiology - Last 24 Hours (Table) 02/13/17 21:32 Blood Culture - Preliminary Blood No Growth after 72 hours Assessment and Plan Plan: Impression: 1 acute metabolic encephalopathy secondary to hypotension, acute kidney injury and renal failure, and acute shock liver. Significant improvement has been noted in the last 4 days. 2 history of previous CVA and hemicraniectomy on 04/16/2015, 3 history of seizure disorder maintained on Keppra 4 history of alcohol abuse and alcoholism. 5 history of protein C deficiency 6 history of patent foramen ovale 7 history of ADHD 8 possible sepsis on admission, primary source is not clear at this point, patient will remain on empiric antibiotics. 9 anemia, most likely secondary to GI blood losses, probably secondary to elevated INR upon presentation, this will have to be further investigated. Patient will receive a unit of packed RBCs today because of his hemoglobin of 6.9. 10 subacute pancreatitis considering his elevated lipase with normal amylase on admission. Plan: The patient was seen and evaluated by Dr. Wagner. He is stable from the pulmonary and critical care standpoint. He remains in the [facility] protocol for alcohol withdrawal. His liver and renal functions have improved. GI services and are on the case and are monitoring the patient daily with no immediate plans for endoscopy. He remains on Xifaxan and Protonix. We will continue to follow.
--- NOTE | 2017-02-17 14:19 | P.PN ---
Subjective Patient is resting comfortably today. No events overnight. Objective - Vital Signs Vital signs: Vital Signs Temp 98.9 F 02/17/17 07:00 Pulse 80 02/17/17 07:00 Resp 18 02/17/17 07:00 BP 147/104 02/17/17 07:00 Pulse Ox 96 02/17/17 07:00 Intake & Output 02/16/17 02/17/17 02/17/17 18:59 06:59 18:59 Intake Total 1085 1100 Output Total 825 Balance 260 1100 Weight 82.6 kg Intake: IV 150 Sodium Chloride 0.9% 1, 150 000 ml @ 75 mls/hr IV . [id number] MO Rx#:[id number] Intake, IV Titration 625 1100 Amount Magnesium Sulfate-D5w Pmx 100 1 gm In Dextrose/Water 1 100ml.bag @ 100 mls/hr IVPB Q1H MO Rx#: [id number] Sodium Chloride 0.9% 1, 375 1100 000 ml @ 100 mls/hr IV . Q10H MO Rx#:[id number] cefTRIAXone 1,000 mg In 50 Sodium Chloride 0.9% 50 ml @ 100 mls/hr IVPB Q24HR OM Rx#:[id number] levETIRAcetam IV 750 mg 100 In Sodium Chloride 0.9% 100 ml @ 215 mls/hr IVPB Q12HR@0600,1800 MO Rx#: [id number] Blood Product 310 Rc As-3 Unit 310 [id number] Output: Urine 825 Other: Voiding Method Indwelling Catheter Bedside Commode Bedside Commode Diaper Diaper # Voids 1 # Bowel Movements 4 3 - Exam General: The patient is awake and alert, Eye: there is normal conjunctiva bilaterally. Neck: The neck is supple, there is no JVD. Cardiovascular: Normal S1-S2, no S3-S4, no murmurs. Respiratory: Lungs with scattered rhonchi Gastrointestinal: Abdomen is soft, nontender Musculoskeletal: There is no pedal edema. Skin: Skin is warm and dry - Labs CBC & Chem 7: 02/17/17 08:10 02/17/17 08:10 Labs: Abnormal Lab Results - Last 24 Hours (Table) 02/16/17 02/16/17 02/16/17 Range/Units 11:29 17:52 20:25 RBC 2.67 L (4.30-5.90) m/uL Hgb 8.0 L (13.0-17.5) gm/dL Hct 24.3 L (39.0-53.0) % RDW 20.8 H (11.5-15.5) % Chloride (98-107) mmol/L BUN (9-20) mg/dL Creatinine (0.66-1.25) mg/dL POC Glucose (mg/dL) 147 H (75-99) mg/dL Magnesium (1.6-2.3) mg/dL Total Bilirubin (0.2-1.3) mg/dL ALT (21-72) U/L Total Protein (6.3-8.2) g/dL Albumin (3.5-5.0) g/dL Crossmatch See Detail 02/17/17 02/17/17 02/17/17 Range/Units 00:32 06:05 07:47 RBC (4.30-5.90) m/uL Hgb (13.0-17.5) gm/dL Hct (39.0-53.0) % RDW (11.5-15.5) % Chloride (98-107) mmol/L BUN (9-20) mg/dL Creatinine (0.66-1.25) mg/dL POC Glucose (mg/dL) 100 H 102 H 107 H (75-99) mg/dL Magnesium (1.6-2.3) mg/dL Total Bilirubin (0.2-1.3) mg/dL ALT (21-72) U/L Total Protein (6.3-8.2) g/dL Albumin (3.5-5.0) g/dL Crossmatch 02/17/17 02/17/17 02/17/17 Range/Units 08:10 08:10 11:18 RBC 2.63 L (4.30-5.90) m/uL Hgb 7.7 L (13.0-17.5) gm/dL Hct 24.3 L (39.0-53.0) % RDW 20.7 H (11.5-15.5) % Chloride 110 H (98-107) mmol/L BUN 7 L (9-20) mg/dL Creatinine 0.60 L (0.66-1.25) mg/dL POC Glucose (mg/dL) 108 H (75-99) mg/dL Magnesium 1.5 L (1.6-2.3) mg/dL Total Bilirubin 1.4 H (0.2-1.3) mg/dL ALT 403 H (21-72) U/L Total Protein 5.4 L (6.3-8.2) g/dL Albumin 3.0 L (3.5-5.0) g/dL Crossmatch Microbiology - Last 24 Hours (Table) 02/13/17 21:32 Blood Culture - Preliminary Blood No Growth after 72 hours Assessment and Plan Plan: 1. Acute kidney injury, now resolved kidney function back to normal 2. Acute liver failure with transaminitis 3. Acute encephalopathy secondary to #1 and 2, now resolved 4. Sepsis with septic shock 5. Urinary tract infection on IV ceftriaxone. Urine culture negative. Will finish 5 days course of antibiotic. Stop date 02/18 6. Supratherapeutic INR reversed with vitamin K on presentation 7. 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 patient is following closely with neurology/neurosurgery as an outpatient 8. Protein C deficiency 9. Underlying patent foramen ovale with [id number] shunt: Anticoagulation on hold right now 10. Alcohol abuse 11. Seizure disorder: Maintained on Keppra 12. Hypertension 13. ADHD: maintained on Adderral 10 mg twice a day at home 14. Suspected upper GI bleed and blood loss anemia: GI following. for endoscopy at this time. This is a 46-year-old gentleman with a very complex past medical history noted above who presented to the hospital with evidence of sepsis with septic shock as well as dehydration and intravascular depletion. He had multiple and organ damage involving acute kidney and acute liver failure. He was resuscitated adequately with IV fluid. His overall condition improved significantly since admission. Continue current management. PT/OT evaluation. Discharge planning.
[2017-02-17 14:43] VITALS: BMI 24.0
[2017-02-17] MEDS: METOPROLOL TARTRATE 50 MG TAB PO SCH (17:18)
[2017-02-17 17:22] LABS: Glucose,Whole Blood 102 mg/dL (75-99)
[2017-02-17 20:16] LABS: Glucose,Whole Blood 106 mg/dL (75-99)
[2017-02-17] MEDS: PRAVASTATIN SODIUM 40 MG TAB PO SCH (21:19)
[2017-02-17] MEDS: TEMAZEPAM 30 MG CAP PO SCH (21:19)
[2017-02-18] MEDS: HYDROmorphone 1 MG/ML 1 ML SYRINGE IVP PRN ×7 (02:34→21:17)
[2017-02-18] MEDS: levETIRAcetam IV 750 MG in SODIUM CHLORIDE 0.9% 100 ML IVPB SCH (05:19)
[2017-02-18] MEDS: DILTIAZEM CD 120 MG CAP.ER.24H PO SCH (05:20)
[2017-02-18] MEDS: LISINOPRIL 2.5 MG TAB PO SCH (05:20)
[2017-02-18] MEDS: FERROUS SULFATE 325 MG TAB PO SCH ×2 (05:20→17:27)
[2017-02-18] MEDS: METOPROLOL TARTRATE 50 MG TAB PO SCH ×2 (05:20→17:27)
[2017-02-18] MEDS: INSULIN LISPRO (humaLOG) 300 UNIT/3 ML VIAL SQ SCH ×3 (06:05→18:36)
[2017-02-18 06:20] LABS: Glucose,Whole Blood 99 mg/dL (75-99)
[2017-02-18] MEDS: RIFAXIMIN 550 MG TABLET PO SCH (08:31)
[2017-02-18] MEDS: PANTOPRAZOLE 40 MG TABLET PO SCH ×2 (08:31→21:18)
[2017-02-18 11:06] LABS: Anisocytosis Moderate; Basophils % (A) 0 %; CH 28.6; CHCM 30.6; Eosinophils # (A) 0.3 k/uL (0-0.7); Eosinophils % (A) 6 %; HCT 23.5 % (39.0-53.0); HDW 3.03; HGB 7.5 gm/dL (13.0-17.5); Hypochromasia Moderate; Luc # (Auto) 0.18; Luc % (Auto) 3; Lymphocytes # (A) 1.2 k/uL (1.0-4.8); Lymphocytes % (A) 22 %; MCH 30.1 pg (25.0-35.0); MCHC 32.1 g/dL (31.0-37.0); Macrocytosis Slight; Mean Platelet Volume 8.4; Monocytes # (A) 0.4 k/uL (0-1.0); Monocytes % (A) 8 %; Neutrophils # (A) 3.3 k/uL (1.3-7.7); Neutrophils % (A) 61 %; RDW 20.8 % (11.5-15.5); WBC 5.3 k/uL (3.8-10.6); WBC (Perox) 5.51
[2017-02-18 11:27] LABS: ALT 266 U/L (21-72); AST 38 U/L (17-59); Alkaline Phosphatase 57 U/L (38-126); Anion Gap 6 mmol/L; Blood Urea Nitrogen 7 mg/dL (9-20); Calcium 8.1 mg/dL (8.4-10.2); Carbon Dioxide 24 mmol/L (22-30); Chloride 105 mmol/L (98-107); Glucose 116 mg/dL (74-99); Non-African American GFR(MDRD) >60 (>60 ml/min/1.73 sqM); Potassium 3.2 mmol/L (3.5-5.1); Sodium 135 mmol/L (137-145); Total Bilirubin 0.8 mg/dL (0.2-1.3)
--- NOTE | 2017-02-18 11:28 | P.PN ---
Subjective Patient is resting comfortably today. No events overnight. Objective - Vital Signs Vital signs: Vital Signs Temp 98.1 F 02/18/17 07:00 Pulse 68 02/18/17 07:00 Resp 16 02/18/17 07:00 BP 164/103 02/18/17 07:00 Pulse Ox 94 L 02/18/17 07:00 Intake & Output 02/17/17 02/18/17 02/18/17 18:59 06:59 18:59 Intake Total 720 240 Output Total 1 1 Balance -1 720 239 Weight 82.6 kg Intake: Oral 720 240 Output: Stool 1 1 Other: Voiding Method Bedside Commode Bedside Commode Bedside Commode Diaper Diaper Diaper # Voids 3 # Bowel Movements 2 - Exam General: The patient is awake and alert, Eye: there is normal conjunctiva bilaterally. Neck: The neck is supple, there is no JVD. Cardiovascular: Normal S1-S2, no S3-S4, no murmurs. Respiratory: Lungs with scattered rhonchi Gastrointestinal: Abdomen is soft, nontender Musculoskeletal: There is no pedal edema. Skin: Skin is warm and dry - Labs CBC & Chem 7: 02/18/17 10:43 02/17/17 08:10 Labs: Abnormal Lab Results - Last 24 Hours (Table) 02/17/17 02/17/17 02/18/17 Range/Units 17:19 20:13 10:43 RBC 2.50 L (4.30-5.90) m/uL Hgb 7.5 L (13.0-17.5) gm/dL Hct 23.5 L (39.0-53.0) % RDW 20.8 H (11.5-15.5) % POC Glucose (mg/dL) 102 H 106 H (75-99) mg/dL Microbiology - Last 24 Hours (Table) 02/13/17 21:32 Blood Culture - Preliminary Blood No Growth after 96 hours Assessment and Plan Plan: 1. Acute kidney injury, now resolved kidney function back to normal 2. Acute liver failure with transaminitis 3. Acute encephalopathy secondary to #1 and 2, now resolved 4. Sepsis with septic shock 5. Urinary tract infection on IV ceftriaxone. Urine culture negative. Will finish 5 days course of antibiotic. Stop date 02/18 6. Supratherapeutic INR reversed with vitamin K on presentation 7. 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 patient is following closely with neurology/neurosurgery as an outpatient 8. Protein C deficiency 9. Underlying patent foramen ovale with [id number] shunt: Anticoagulation on hold right now 10. Alcohol abuse 11. Seizure disorder: Maintained on Keppra 12. Hypertension 13. ADHD: maintained on Adderral 10 mg twice a day at home 14. Suspected upper GI bleed and blood loss anemia: GI following. No plan for endoscopy at this time. This is a 46-year-old gentleman with a very complex past medical history noted above who presented to the hospital with evidence of sepsis with septic shock as well as dehydration and intravascular depletion. He had multiple and organ damage involving acute kidney and acute liver failure. He was resuscitated adequately with IV fluid. His overall condition improved significantly since admission. Urine culture came back negative. Patient finish 5 days of IV antibiotic. Discontinue IV ceftriaxone. Restart anticoagulation today with Eliquis as patient is a poor candidate for Coumadin. Continue current management. PT/OT evaluation. Discharge planning.
[2017-02-18] MEDS: THIAMINE 100 MG TAB PO SCH ×2 (12:01→17:27)
[2017-02-18 12:21] LABS: Glucose,Whole Blood 108 mg/dL (75-99)
--- NOTE | 2017-02-18 12:30 | P.PN ---
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 Nursing reports no further bloody bowel movements. Hemoglobin 7.5. Lipase not obtained today. Objective - Vital Signs Vital signs: Vital Signs Temp 98.1 F 02/18/17 07:00 Pulse 68 02/18/17 07:00 Resp 16 02/18/17 07:00 BP 164/103 02/18/17 07:00 Pulse Ox 94 L 02/18/17 07:00 Intake & Output 02/17/17 02/18/17 02/18/17 18:59 06:59 18:59 Intake Total 720 240 Output Total 1 1 Balance -1 720 239 Weight 82.6 kg Intake: Oral 720 240 Output: Stool 1 1 Other: Voiding Method Bedside Commode Bedside Commode Bedside Commode Diaper Diaper Diaper # Voids 3 # Bowel Movements 2 - Exam General appearance: Patient is obtunded and unable to hold conversation moaning , sleeping. Sitter at bedside. HET: Head is normocephalic and atraumatic. Pupils are equal and reactive. Oropharynx is clear without lesions. Neck: Supple without lymphadenopathy. Trachea midline. Heart: S1 S2. Regular rate and rhythm. Lungs: No crackles or wheezes are heard. Abdomen: Soft, nondistended with bowel sounds. No peritoneal signs. No palpable organomegaly or masses. Extremities: Normal skin color and turgor. No cyanosis, rash, ulceration, clubbing, or edema. Radial and pedal pulses are 2/4 bilaterally. Neurological: Right hemiparesis. - Labs CBC & Chem 7: 02/18/17 10:43 02/18/17 10:43 Labs: Abnormal Lab Results - Last 24 Hours (Table) 02/17/17 02/17/17 02/18/17 Range/Units 17:19 20:13 10:43 RBC 2.50 L (4.30-5.90) m/uL Hgb 7.5 L (13.0-17.5) gm/dL Hct 23.5 L (39.0-53.0) % RDW 20.8 H (11.5-15.5) % Sodium (137-145) mmol/L Potassium (3.5-5.1) mmol/L BUN (9-20) mg/dL Creatinine (0.66-1.25) mg/dL Glucose (74-99) mg/dL POC Glucose (mg/dL) 102 H 106 H (75-99) mg/dL Calcium (8.4-10.2) mg/dL ALT (21-72) U/L Total Protein (6.3-8.2) g/dL Albumin (3.5-5.0) g/dL 02/18/17 Range/Units 10:43 RBC (4.30-5.90) m/uL Hgb (13.0-17.5) gm/dL Hct (39.0-53.0) % RDW (11.5-15.5) % Sodium 135 L (137-145) mmol/L Potassium 3.2 L (3.5-5.1) mmol/L BUN 7 L (9-20) mg/dL Creatinine 0.62 L (0.66-1.25) mg/dL Glucose 116 H (74-99) mg/dL POC Glucose (mg/dL) (75-99) mg/dL Calcium 8.1 L (8.4-10.2) mg/dL ALT 266 H (21-72) U/L Total Protein 5.0 L (6.3-8.2) g/dL Albumin 2.7 L (3.5-5.0) g/dL Microbiology - Last 24 Hours (Table) 02/13/17 21:32 Blood Culture - Preliminary Blood No Growth after 96 hours Assessment and Plan Plan: 1. Metabolic encephalopathy with superimposed hepatic encephalopathy with elevated ammonia level today with history of EtOH abuse. Continue CIWA protocol Possible sepsis. 2. History of CVA requiring craniotomy and DRIFT MINER shunt. 3. Protein C deficiency anticoagulation on hold. Receiving Lovenox daily. 4. Warfarin-induced coagulopathy resolved. 5. History of PFO. 6. GI bleed etiology unclear possible ischemic in nature with suspected component of alcohol gastropathy gastritis esophagitis exacerbated by coagulopathy with reported maroon liquid stools by nursing staff 3 days ago and decreased hemoglobin over the last 24 hours; currently passing nonbloody bowel movements status post transfusion. Hemoglobin presently 7.7. 7. Anemia hypochromic normocytic suspect component of acute blood loss. 8. Hypotension on admission with elevated transaminases; improving with mild hyperbilirubinemia suspect component of ischemic hepatitis with superimposed alcohol hepatitis possible alcohol pancreatitis with elevated lipase on admission 884. Plan: 1. Continue lactulose as directed hold dose if more than 4 bowel movements daily. Xifaxan. Patient can start Eliquis. 2. Continue with IV Protonix twice daily. Continue diet as tolerated. 3. Monitor CBC daily. 4. Endoscopy contingent on clinical course but not planned at this time. Will follow as needed. Assessment and plan of care discussed with Dr. arshad. Time with Patient: Less than 30
[2017-02-18] MEDS: POTASSIUM CHLORIDE ER 20 MEQ TAB.ER PO SCH (17:27)
[2017-02-18] MEDS ORDERED: WARFARIN 5 MG TAB PO ONE (18:00)
[2017-02-18 18:10] LABS: Glucose,Whole Blood 107 mg/dL (75-99)
[2017-02-18] MEDS ORDERED: APIXABAN 5 MG TAB PO SCH (21:00)
[2017-02-18] MEDS: TEMAZEPAM 30 MG CAP PO SCH (21:17)
[2017-02-18] MEDS: PRAVASTATIN SODIUM 40 MG TAB PO SCH (21:18)
[2017-02-19 00:07] LABS: Glucose,Whole Blood 121 mg/dL (75-99)
[2017-02-19] MEDS: INSULIN LISPRO (humaLOG) 300 UNIT/3 ML VIAL SQ SCH ×4 (00:13→17:48)
[2017-02-19] MEDS: HYDROmorphone 1 MG/ML 1 ML SYRINGE IVP PRN ×7 (00:33→23:18)
[2017-02-19] MEDS: METOPROLOL TARTRATE 50 MG TAB PO SCH ×2 (06:00→17:51)
[2017-02-19] MEDS: FERROUS SULFATE 325 MG TAB PO SCH ×2 (06:00→17:51)
[2017-02-19] MEDS: DILTIAZEM CD 120 MG CAP.ER.24H PO SCH (06:00)
[2017-02-19] MEDS: LISINOPRIL 2.5 MG TAB PO SCH (06:00)
[2017-02-19 06:05] LABS: Glucose,Whole Blood 110 mg/dL (75-99)
[2017-02-19 07:18] LABS: Anisocytosis Moderate; Basophils % (A) 0 %; CH 29.2; CHCM 31.4; Eosinophils # (A) 0.3 k/uL (0-0.7); Eosinophils % (A) 4 %; HCT 22.4 % (39.0-53.0); HDW 3.12; HGB 7.1 gm/dL (13.0-17.5); Hypochromasia Slight; Luc # (Auto) 0.24; Luc % (Auto) 4; Lymphocytes # (A) 1.4 k/uL (1.0-4.8); Lymphocytes % (A) 22 %; MCH 29.8 pg (25.0-35.0); MCHC 31.8 g/dL (31.0-37.0); MCV 93.7 fL (80.0-100.0); Macrocytosis Slight; Mean Platelet Volume 8.3; Monocytes # (A) 0.4 k/uL (0-1.0); Monocytes % (A) 7 %; Neutrophils # (A) 3.9 k/uL (1.3-7.7); Neutrophils % (A) 63 %; RBC 2.39 m/uL (4.30-5.90); RDW 21.7 % (11.5-15.5); WBC 6.3 k/uL (3.8-10.6)
[2017-02-19] MEDS: PANTOPRAZOLE 40 MG TABLET PO SCH ×2 (07:34→21:32)
[2017-02-19 07:47] LABS: ALT 213 U/L (21-72); AST 30 U/L (17-59); Alkaline Phosphatase 52 U/L (38-126); Anion Gap 7 mmol/L; Blood Urea Nitrogen 6 mg/dL (9-20); Calcium 8.3 mg/dL (8.4-10.2); Carbon Dioxide 22 mmol/L (22-30); Chloride 106 mmol/L (98-107); Glucose 97 mg/dL (74-99); Non-African American GFR(MDRD) >60 (>60 ml/min/1.73 sqM); Potassium 3.6 mmol/L (3.5-5.1); Sodium 135 mmol/L (137-145); Total Bilirubin 0.9 mg/dL (0.2-1.3); Total Protein 5.1 g/dL (6.3-8.2)
[2017-02-19 09:01] VITALS: RESP 18
[2017-02-19 10:08] LABS: INR 1.2 (<1.1); Prothrombin Time 11.7 sec (9.0-12.0)
--- NOTE | 2017-02-19 11:49 | P.PN ---
Subjective Patient is resting comfortably today. No events overnight. Objective - Vital Signs Vital signs: Vital Signs Temp 98.2 F 02/19/17 07:00 Pulse 73 02/19/17 08:00 Resp 18 02/19/17 08:00 BP 139/99 02/19/17 07:00 Pulse Ox 96 02/19/17 07:00 Intake & Output 02/18/17 02/19/17 02/19/17 18:59 06:59 18:59 Intake Total 750 200 Output Total 2 1 Balance 748 200 -1 Weight 82.6 kg Intake: IV 160 0.9 at KVO 160 Intake, IV Titration 50 Amount cefTRIAXone 1,000 mg In 50 Sodium Chloride 0.9% 50 ml @ 100 mls/hr IVPB Q24HR MO Rx#:[id number] Oral 540 200 Output: Stool 2 1 Other: Voiding Method Bedside Commode Bedside Commode Toilet Diaper Bedside Commode # Voids 4 1 2 # Bowel Movements 1 - Exam General: The patient is awake and alert, Eye: there is normal conjunctiva bilaterally. Neck: The neck is supple, there is no JVD. Cardiovascular: Normal S1-S2, no S3-S4, no murmurs. Respiratory: Lungs with scattered rhonchi Gastrointestinal: Abdomen is soft, nontender Musculoskeletal: There is no pedal edema. Skin: Skin is warm and dry - Labs CBC & Chem 7: 02/19/17 06:50 02/19/17 06:50 Labs: Abnormal Lab Results - Last 24 Hours (Table) 02/18/17 02/18/17 02/18/17 Range/Units 10:43 12:20 18:08 RBC (4.30-5.90) m/uL Hgb (13.0-17.5) gm/dL Hct (39.0-53.0) % RDW (11.5-15.5) % Sodium (137-145) mmol/L BUN (9-20) mg/dL Creatinine (0.66-1.25) mg/dL POC Glucose (mg/dL) 108 H 107 H (75-99) mg/dL Calcium (8.4-10.2) mg/dL ALT (21-72) U/L Total Protein (6.3-8.2) g/dL Albumin (3.5-5.0) g/dL Lipase 578 H (23-300) U/L 02/19/17 02/19/17 02/19/17 Range/Units 00:04 05:59 06:50 RBC 2.39 L (4.30-5.90) m/uL Hgb 7.1 L (13.0-17.5) gm/dL Hct 22.4 L (39.0-53.0) % RDW 21.7 H (11.5-15.5) % Sodium (137-145) mmol/L BUN (9-20) mg/dL Creatinine (0.66-1.25) mg/dL POC Glucose (mg/dL) 121 H 110 H (75-99) mg/dL Calcium (8.4-10.2) mg/dL ALT (21-72) U/L Total Protein (6.3-8.2) g/dL Albumin (3.5-5.0) g/dL Lipase (23-300) U/L 02/19/17 Range/Units 06:50 RBC (4.30-5.90) m/uL Hgb (13.0-17.5) gm/dL Hct (39.0-53.0) % RDW (11.5-15.5) % Sodium 135 L (137-145) mmol/L BUN 6 L (9-20) mg/dL Creatinine 0.62 L (0.66-1.25) mg/dL POC Glucose (mg/dL) (75-99) mg/dL Calcium 8.3 L (8.4-10.2) mg/dL ALT 213 H (21-72) U/L Total Protein 5.1 L (6.3-8.2) g/dL Albumin 2.7 L (3.5-5.0) g/dL Lipase (23-300) U/L Microbiology - Last 24 Hours (Table) 02/13/17 21:32 Blood Culture - Preliminary Blood No Growth after 120 hours Assessment and Plan Plan: 1. Acute kidney injury, now resolved kidney function back to normal 2. Acute liver failure with transaminitis 3. Acute encephalopathy secondary to #1 and 2, now resolved 4. Sepsis with septic shock 5. Urinary tract infection on IV ceftriaxone. Urine culture negative. Will finish 5 days course of antibiotic. Stop date 02/18 6. Supratherapeutic INR reversed with vitamin K on presentation 7. History of large bilateral stroke with midline shift status post hemicraniotomy on 04/16/2015 and NET DEVEL[employer] shunt placement in August 2015. patient is following closely with neurology/neurosurgery as an outpatient 8. Protein C deficiency 9. Underlying patent foramen ovale with [id number] shunt: Anticoagulation on hold right now 10. Alcohol abuse 11. Seizure disorder: Maintained on Keppra 12. Hypertension 13. ADHD: maintained on Adderral 10 mg twice a day at home 14. Suspected upper GI bleed and blood loss anemia: GI following. No plan for endoscopy at this time. This is a 46-year-old gentleman with a very complex past medical history noted above who presented to the hospital with evidence of sepsis with septic shock as well as dehydration and intravascular depletion. He had multiple and organ damage involving acute kidney and acute liver failure. He was resuscitated adequately with IV fluid. His overall condition improved significantly since admission. Urine culture came back negative. Patient finished 5 days of IV antibiotic. Discontinue IV ceftriaxone. Restart anticoagulation with Coumadin. No evidence of ongoing bleed. Patient is having normal bowel movement. Hemoglobin is borderline low. May require another unit of blood transfusion. Would monitor CBC daily. Continue current management. PT/OT evaluation. Discharge planning.
[2017-02-19 12:33] LABS: Glucose,Whole Blood 111 mg/dL (75-99)
[2017-02-19] MEDS: THIAMINE 100 MG TAB PO SCH ×2 (12:48→17:51)
[2017-02-19 17:50] LABS: Glucose,Whole Blood 125 mg/dL (75-99)
[2017-02-19] MEDS ORDERED: WARFARIN 5 MG TAB PO SCH (18:00)
[2017-02-19 20:15] LABS: Glucose,Whole Blood 116 mg/dL (75-99)
[2017-02-19] MEDS: PRAVASTATIN SODIUM 40 MG TAB PO SCH (21:32)
[2017-02-19] MEDS: TEMAZEPAM 30 MG CAP PO SCH (21:32)
[2017-02-20] MEDS: INSULIN LISPRO (humaLOG) 300 UNIT/3 ML VIAL SQ SCH ×3 (00:09→14:20)
[2017-02-20 00:10] LABS: Glucose,Whole Blood 116 mg/dL (75-99)
[2017-02-20] MEDS: HYDROmorphone 1 MG/ML 1 ML SYRINGE IVP PRN ×4 (04:10→14:20)
[2017-02-20] MEDS: DILTIAZEM CD 120 MG CAP.ER.24H PO SCH (05:43)
[2017-02-20] MEDS: LISINOPRIL 2.5 MG TAB PO SCH (05:44)
[2017-02-20] MEDS: METOPROLOL TARTRATE 50 MG TAB PO SCH (05:44)
[2017-02-20] MEDS: FERROUS SULFATE 325 MG TAB PO SCH (05:44)
[2017-02-20 05:59] LABS: Glucose,Whole Blood 113 mg/dL (75-99)
[2017-02-20 07:35] LABS: INR 1.2 (<1.1)
[2017-02-20 07:41] LABS: ALT 189 U/L (21-72); AST 26 U/L (17-59); Alkaline Phosphatase 54 U/L (38-126); Anion Gap 8 mmol/L; Blood Urea Nitrogen 8 mg/dL (9-20); Calcium 8.9 mg/dL (8.4-10.2); Carbon Dioxide 22 mmol/L (22-30); Chloride 107 mmol/L (98-107); Glucose 103 mg/dL (74-99); Non-African American GFR(MDRD) >60 (>60 ml/min/1.73 sqM); Potassium 3.8 mmol/L (3.5-5.1); Sodium 137 mmol/L (137-145); Total Bilirubin 0.9 mg/dL (0.2-1.3); Total Protein 5.9 g/dL (6.3-8.2)
[2017-02-20] MEDS: PANTOPRAZOLE 40 MG TABLET PO SCH (07:47)
[2017-02-20 08:11] LABS: Anisocytosis Moderate; Basophils % (A) 0 %; CH 29.3; CHCM 31.3; Eosinophils # (A) 0.2 k/uL (0-0.7); Eosinophils % (A) 2 %; HCT 26.1 % (39.0-53.0); HDW 3.11; HGB 8.3 gm/dL (13.0-17.5); Hypochromasia Slight; Luc # (Auto) 0.28; Luc % (Auto) 4; Lymphocytes # (A) 1.9 k/uL (1.0-4.8); Lymphocytes % (A) 24 %; MCHC 31.8 g/dL (31.0-37.0); MCV 94.2 fL (80.0-100.0); Macrocytosis Slight; Mean Platelet Volume 8.5; Monocytes # (A) 0.5 k/uL (0-1.0); Monocytes % (A) 6 %; Neutrophils # (A) 5.1 k/uL (1.3-7.7); Neutrophils % (A) 64 %; RBC 2.77 m/uL (4.30-5.90); RDW 21.4 % (11.5-15.5); WBC 7.9 k/uL (3.8-10.6); WBC (Perox) 8.75
[2017-02-20 09:20] VITALS: BP 174/85; PULSE 72; TEMP 97.7
[2017-02-20] MEDS: THIAMINE 100 MG TAB PO SCH (11:18)
[2017-02-20 12:10] LABS: Glucose,Whole Blood 120 mg/dL (75-99)
--- NOTE | 2017-02-20 14:05 | P.DS ---
Providers Date of admission: 02/13/17 15:05 Expected date of discharge: 02/20/17 Attending physician: Cayetano Galloway Consults: 02/13/17 15:04 Consult Physician Urgent Consulting Provider: Harper Goff Consult Reason/Comments: arf Do you want consulting provider notified?: Yes 02/13/17 15:53 Consult Physician Urgent Consulting Provider: Jovi Benavidez Consult Reason/Comments: critical care Do you want consulting provider notified?: Already Contacted Primary care physician: [facility] Course: 1. Acute kidney injury, now resolved kidney function back to normal 2. Acute liver failure with transaminitis 3. Acute encephalopathy secondary to #1 and 2, now resolved 4. Sepsis with septic shock 5. Urinary tract infection on IV ceftriaxone. Urine culture negative. Will finish 5 days course of antibiotic. Stop date 02/18 6. Supratherapeutic INR reversed with vitamin K on presentation 7. History of large bilateral stroke with midline shift status post hemicraniotomy on 04/16/2015 and BLADE [employer]ER shunt placement in August 2015. patient is following closely with neurology/neurosurgery as an outpatient 8. Protein C deficiency 9. Underlying patent foramen ovale with [id number] shunt: Anticoagulation on hold right now 10. Alcohol abuse 11. Seizure disorder: Maintained on Keppra 12. Hypertension 13. ADHD: maintained on Adderral 10 mg twice a day at home 14. Suspected upper GI bleed and blood loss anemia: GI following. No plan for endoscopy at this time. This is a 46-year-old gentleman with a very complex past medical history noted above who presented to the hospital with evidence of sepsis with septic shock as well as dehydration and intravascular depletion. He had multiple and organ damage involving acute kidney and acute liver failure. He was resuscitated adequately with IV fluid. His overall condition improved significantly since admission. Urine culture came back negative. Patient finished 5 days of IV antibiotic. Restart anticoagulation with Coumadin. No evidence of ongoing bleed. Patient is having normal bowel movement. Hemoglobin is borderline low. Patient Condition at Discharge: Serious Plan - Discharge Summary Discharge Medication List oxyCODONE-APAP 10-325MG [Percocet 10-325 mg] 1 tab PO Q6H 04/16/15 [History] ALPRAZolam [Xanax] 0.25 mg PO Q6HR PRN 11/24/15 [History] Acetaminophen Tab [Tylenol] 500 mg PO Q6H PRN 11/24/15 [History] Diltiazem Cd [Cardizem CD] 120 mg PO DAILY@0600 11/24/15 [History] Metoprolol Tartrate [Lopressor] 50 mg PO BID@0600,1800 11/24/15 [History] Pravastatin Sodium [Pravachol] 40 mg PO HS 11/24/15 [History] Temazepam [Restoril] 30 mg PO HS 11/24/15 [History] guaiFENesin SYRUP 100MG/5ML [Robitussin] 200 mg PO Q6HR PRN 11/24/15 [History] levETIRAcetam 750 mg PO BID@0600,1800 11/24/15 [History] Ferrous Sulfate [Iron (65 MG Elemental)] 325 mg PO BID@0600,1800 12/16/15 [ History] Warfarin Sodium [Coumadin] 3 mg PO HS 12/16/15 [History] Gabapentin [Neurontin] 600 mg PO DAILY@1800 11/16/16 [History] Dextroamphetamine/Amphetamine [Adderall] 10 mg PO BID@0600,1200 02/13/17 [ History] Docusate [Colace] 100 mg PO DAILY PRN 02/13/17 [History] Lisinopril [Zestril] 2.5 mg PO DAILY@0600 02/13/17 [History] Pantoprazole [Protonix] 40 mg PO DAILY@0600 02/13/17 [History] Follow up Appointment(s)/Referral(s): Camelia Clarke MD [Primary Care Provider] - 1-2 days (Patient to call Dr. Clarke's office to schedule follow up appointment on Tuesday morning. The office is closed at time of discharge.) Patient Instructions/Handouts: Acute Kidney Injury (DC), Hepatic Encephalopathy (DC) Discharge Disposition: HOME SELF-CARE
== END 2017-02-20 15:15 | disposition home or self-care (01) | DRG 871 ==
LOC: EC 12:26 → 6ICU 15:05 → 5MS5E 02-16 18:20 → UNDODISIN 02-17 16:48 → 5MS5E 02-19 10:22
PROVIDERS: ADMIT Internal Medicine; ATTEND Internal Medicine
PROC: 0T9B70Z Drainage of Bladder with Drainage Device, Via Natural or Artificial Opening (ICD-10-PCS; 2017-02-13)
PROC: 30233N1 Transfusion of Nonautologous Red Blood Cells into Peripheral Vein, Percutaneous Approach (ICD-10-PCS; principal; 2017-02-16)
PROC: HZ2ZZZZ Detoxification Services for Substance Abuse Treatment (ICD-10-PCS; 2017-02-16)
DX: A41.9 Sepsis, unspecified organism (principal); R65.21 Severe sepsis with septic shock; K72.00 Acute and subacute hepatic failure without coma; G93.41 Metabolic encephalopathy; N17.9 Acute kidney failure, unspecified; E87.2 Acidosis; I95.9 Hypotension, unspecified; K92.2 Gastrointestinal hemorrhage, unspecified; D68.59 Other primary thrombophilia; N39.0 Urinary tract infection, site not specified; Q21.1 Atrial septal defect; D62 Acute posthemorrhagic anemia; F10.239 Alcohol dependence with withdrawal, unspecified; I69.351 Hemiplegia and hemiparesis following cerebral infarction affecting right dominant side; E86.0 Dehydration; K70.10 Alcoholic hepatitis without ascites; G40.909 Epilepsy, unspecified, not intractable, without status epilepticus; I10 Essential (primary) hypertension; K21.9 Gastro-esophageal reflux disease without esophagitis; J44.9 Chronic obstructive pulmonary disease, unspecified; E87.5 Hyperkalemia; E83.39 Other disorders of phosphorus metabolism; R31.9 Hematuria, unspecified; S00.11XA Contusion of right eyelid and periocular area, initial encounter; R60.0 Localized edema; H54.41 Blindness, right eye, normal vision left eye; F90.9 Attention-deficit hyperactivity disorder, unspecified type; F41.9 Anxiety disorder, unspecified; R29.6 Repeated falls; R74.0 Nonspecific elevation of levels of transaminase and lactic acid dehydrogenase [LDH]; M25.512 Pain in left shoulder; Z88.5 Allergy status to narcotic agent; Z86.14 Personal history of Methicillin resistant Staphylococcus aureus infection; Z79.899 Other long term (current) drug therapy; Z79.01 Long term (current) use of anticoagulants; Z90.49 Acquired absence of other specified parts of digestive tract; Z87.891 Personal history of nicotine dependence; Z91.81 History of falling; Z98.2 Presence of cerebrospinal fluid drainage device; Z86.19 Personal history of other infectious and parasitic diseases; Z79.891 Long term (current) use of opiate analgesic; Z71.3 Dietary counseling and surveillance; Y90.0 Blood alcohol level of less than 20 mg/100 ml
CPT/HCPCS: 36415; 51702; 70450; 71010; 71020; 74177; 76770; 80048; 80053; 80074; 80306; 80320; 81001; 82140; 82150; 82533; 82550; 82553; 82728; 83036; 83540; 83550; 83605; 83690; 83735; 84100; 84132; 84484; 85025; 85027; 85610; 85730; 86850; 86880; 86900; 86901; 86920; 87040; 87086; 93005; 96361; 96365; 96367; 96375; 99291

== ENCOUNTER 2017-02-20 18:38 | Emergency (ER) | payer OTHER ==
[2017-02-20 19:08] LABS: Glucose,Whole Blood 120 mg/dL (75-99)
--- NOTE | 2017-02-20 19:20 | ED ---
General Adult HPI - General Chief complaint: Seizure Stated complaint: Seizure Time Seen by Provider: 02/20/17 18:58 Source: patient, family, EMS, RN notes reviewed Mode of arrival: EMS Limitations: no limitations - History of Present Illness Initial comments: This is a 46-year-old male brought to emergency Department by for abnormal behavior, seizure-like activity. Patient has multiple coronary disease including COPD, CVA, hypertension, seizure disorder. states that the patient was just discharged today for acute liver failure, renal failure. Patient spent one week in the hospital. Patient was discharged on 3:30 this afternoon and when he got home at 5 he stated that he cannot get out of the car and he seemed to be confused though he has normal baseline confusion secondary to CVA. Patient has right-sided weakness which is chronic from CVA. Patient states he feels fine at this time other than he is twitching which is out of the usual. Patient states he did have a headache at the time but states that his headache is minimized. Patient denies any chest pain, shortness breath, nausea vomiting. is demanding transfer at this time. - Related Data Home Medications Medication Instructions Recorded Confirmed oxyCODONE-APAP 10-325MG [Percocet 1 tab PO Q6H 04/16/15 02/20/17 10-325 mg] ALPRAZolam [Xanax] 0.25 mg PO Q6HR PRN 11/24/15 02/20/17 Acetaminophen Tab [Tylenol] 500 mg PO Q6H PRN 11/24/15 02/20/17 Diltiazem Cd [Cardizem CD] 120 mg PO DAILY@0600 11/24/15 02/20/17 Metoprolol Tartrate [Lopressor] 50 mg PO BID@0600,1800 11/24/15 02/20/17 Pravastatin Sodium [Pravachol] 40 mg PO HS 11/24/15 02/20/17 Temazepam [Restoril] 30 mg PO HS 11/24/15 02/20/17 guaiFENesin SYRUP 100MG/5ML 200 mg PO Q6HR PRN 11/24/15 02/20/17 [Robitussin] levETIRAcetam 750 mg PO BID@0600,1800 11/24/15 02/20/17 Ferrous Sulfate [Iron (65 MG 325 mg PO BID@0600,1800 12/16/15 02/20/17 Elemental)] Warfarin Sodium [Coumadin] 3 mg PO HS 12/16/15 02/20/17 Gabapentin [Neurontin] 600 mg PO DAILY@1800 11/16/16 02/20/17 Dextroamphetamine/Amphetamine 10 mg PO BID@0600,1200 02/13/17 02/20/17 [Adderall] Docusate [Colace] 100 mg PO DAILY PRN 02/13/17 02/20/17 Lisinopril [Zestril] 2.5 mg PO DAILY@0600 02/13/17 02/20/17 Pantoprazole [Protonix] 40 mg PO DAILY@0600 02/13/17 02/20/17 Allergies Allergy/AdvReac Type Severity Reaction Status Date / Time codeine AdvReac Nausea & Verified 02/20/17 19:39 Vomiting Review of Systems ROS Statement: Those systems with pertinent positive or pertinent negative responses have been documented in the HPI. ROS Other: All systems not noted in ROS Statement are negative. Past Medical History Past Medical History: COPD, CVA/TIA, GERD/Reflux, Hypertension, Seizure Disorder Additional Past Medical History / Comment(s): LAST SEIZURE 08/2016, HX BLOOD IN STOOL, LEFT SIDED WEAKNESS R/T CVA, Brain Shunt, currently tied; does not feel anything on the right side, right leg and arm very weaker - much weaker than the left side; legally blind in the right eye, pain in left shoulder from previous surgery in 2013 History of Any Multi-Drug Resistant Organisms: None Reported Past Surgical History: Cholecystectomy, Orthopedic Surgery Additional Past Surgical History / Comment(s): LEFT SHOULDER RECENT SX, LIBRA KNEE , RT ARM, STATES HAD A "BAD STAPH INFECTION YEARS AGO IN ONE KNEE", UNSURE IF MRSA, vp of technology shunt, bone removed and replaced in his skull at [facility]. Past Anesthesia/Blood Transfusion Reactions: No Reported Reaction Past Psychological History: ADD/ADHD, Anxiety Smoking Status: Former smoker Past Alcohol Use History: Abuse, Heavy Additional Past Alcohol Use History / Comment(s): PATIENT STATES HE IS AN ALCHOHOLIC, Past Drug Use History: None Reported - Past Family History Father History Unknown: Yes Additional Family Medical History / Comment(s): Pt is adopted General Exam General appearance: alert, in no apparent distress Head exam: Present: atraumatic, normocephalic, normal inspection Eye exam: Present: PERRL (left), EOMI (left). Absent: normal appearance (patch over right eye), scleral icterus, conjunctival injection, periorbital swelling ENT exam: Present: normal exam, normal oropharynx, mucous membranes moist, TM's normal bilaterally Neck exam: Present: normal inspection, full ROM. Absent: tenderness, meningismus, lymphadenopathy Respiratory exam: Present: normal lung sounds bilaterally. Absent: respiratory distress, wheezes, rales, rhonchi, stridor Cardiovascular Exam: Present: regular rate, normal rhythm, normal heart sounds. Absent: systolic murmur, diastolic murmur, rubs, gallop, clicks Extremities exam: Present: other (Right sided weakness from prior CVA) Neurological exam: Present: alert, oriented X3, CN II-XII intact Skin exam: Present: warm, dry, intact, normal color. Absent: rash Course Vital Signs 02/20/17 02/20/17 18:44 20:25 Temperature 97.6 F Pulse Rate 71 78 Respiratory 18 16 Rate Blood Pressure 149/93 132/66 O2 Sat by Pulse 95 96 Oximetry EKG Findings - EKG Comments: EKG Findings:: EKG performed at 19:12 normal sinus rhythm with a rate of 67 ND interval 162 QRS duration 88 QTC is QTC 420/443 Medical Decision Making - Medical Decision Making 46-year-old male presented for seizure-like activity, tremors. Patient was recently discharged from the hospital. This all started after being discharged. Patient's neurosurgeon is out of [facility]. Patient has a shunt noticed Tylenol at this time. Patient's CT shows probable normal pressure hydrocephalus type changes. Patient will be transferred to [facility] for neurosurgery evaluation. - Lab Data Result diagrams: 02/20/17 19:50 02/20/17 19:50 Lab Results 02/20/17 02/20/17 02/20/17 Range/Units 19:06 19:30 19:50 WBC (3.8-10.6) k/uL RBC (4.30-5.90) m/uL Hgb (13.0-17.5) gm/dL Hct (39.0-53.0) % MCV (80.0-100.0) fL MCH (25.0-35.0) pg MCHC (31.0-37.0) g/dL RDW (11.5-15.5) % Plt Count (150-450) k/uL Neutrophils % % Lymphocytes % % Monocytes % % Eosinophils % % Basophils % % Neutrophils # (1.3-7.7) k/uL Lymphocytes # (1.0-4.8) k/uL Monocytes # (0-1.0) k/uL Eosinophils # (0-0.7) k/uL Basophils # (0-0.2) k/uL Hypochromasia Anisocytosis Macrocytosis PT (9.0-12.0) sec INR (<1.1) APTT (22.0-30.0) sec Sodium (137-145) mmol/L Potassium (3.5-5.1) mmol/L Chloride (98-107) mmol/L Carbon Dioxide (22-30) mmol/L Anion Gap mmol/L BUN (9-20) mg/dL Creatinine (0.66-1.25) mg/dL Est GFR (MDRD) Af Amer (>60 ml/min/1.73 sqM) Est GFR (MDRD) Non-Af (>60 ml/min/1.73 sqM) Glucose (74-99) mg/dL POC Glucose (mg/dL) 120 H (75-99) mg/dL POC Glu House Carpenter Helper ID BeMaxi myersin Calcium (8.4-10.2) mg/dL Total Bilirubin (0.2-1.3) mg/dL AST (17-59) U/L ALT (21-72) U/L Alkaline Phosphatase (38-126) U/L Ammonia 10 (<30) umol/L Total Creatine Kinase (55-170) U/L CK-MB (CK-2) (0.0-2.4) ng/mL CK-MB (CK-2) Rel Index Troponin I (0.000-0.034) ng/mL Total Protein (6.3-8.2) g/dL Albumin (3.5-5.0) g/dL Urine Color Yellow Urine Appearance Clear (Clear) Urine pH 6.0 (5.0-8.0) Ur Specific [place] 1.020 (1.001-1.035) Urine Protein Trace H (Negative) Urine Glucose (UA) Negative (Negative) Urine Ketones Negative (Negative) Urine Blood Negative (Negative) Urine Nitrite Negative (Negative) Urine Bilirubin Negative (Negative) Urine Urobilinogen <2.0 (<2.0) mg/dL Ur Leukocyte Esterase Negative (Negative) Urine Opiates Screen Detected H (NotDetected) Ur Oxycodone Screen Detected H (NotDetected) Urine Methadone Screen Not Detected (NotDetected) Ur Propoxyphene Screen Not Detected (NotDetected) Ur Barbiturates Screen Not Detected (NotDetected) U Tricyclic Antidepress Not Detected (NotDetected) Ur Phencyclidine Scrn Not Detected (NotDetected) Ur Amphetamines Screen Not Detected (NotDetected) U Methamphetamines Scrn Not Detected (NotDetected) U Benzodiazepines Scrn Detected H (NotDetected) Urine Cocaine Screen Not Detected (NotDetected) U Marijuana (THC) Screen Not Detected (NotDetected) 02/20/17 02/20/17 02/20/17 Range/Units 19:50 19:50 19:50 WBC 7.4 (3.8-10.6) k/uL RBC 2.70 L (4.30-5.90) m/uL Hgb 7.9 L (13.0-17.5) gm/dL Hct 25.5 L (39.0-53.0) % MCV 94.6 (80.0-100.0) fL MCH 29.2 (25.0-35.0) pg MCHC 30.9 L (31.0-37.0) g/dL RDW 21.2 H (11.5-15.5) % Plt Count 351 (150-450) k/uL Neutrophils % 67 % Lymphocytes % 21 % Monocytes % 6 % Eosinophils % 2 % Basophils % 0 % Neutrophils # 5.0 (1.3-7.7) k/uL Lymphocytes # 1.5 (1.0-4.8) k/uL Monocytes # 0.5 (0-1.0) k/uL Eosinophils # 0.1 (0-0.7) k/uL Basophils # 0.0 (0-0.2) k/uL Hypochromasia Moderate Anisocytosis Moderate Macrocytosis Slight PT (9.0-12.0) sec INR (<1.1) APTT (22.0-30.0) sec Sodium 137 (137-145) mmol/L Potassium 4.0 (3.5-5.1) mmol/L Chloride 105 (98-107) mmol/L Carbon Dioxide 23 (22-30) mmol/L Anion Gap 9 mmol/L BUN 11 (9-20) mg/dL Creatinine 0.70 (0.66-1.25) mg/dL Est GFR (MDRD) Af Amer >60 (>60 ml/min/1.73 sqM) Est GFR (MDRD) Non-Af >60 (>60 ml/min/1.73 sqM) Glucose 103 H (74-99) mg/dL POC Glucose (mg/dL) (75-99) mg/dL POC Glu House [employer] Helper ID Calcium 9.0 (8.4-10.2) mg/dL Total Bilirubin 0.7 (0.2-1.3) mg/dL AST 26 (17-59) U/L ALT 170 H (21-72) U/L Alkaline Phosphatase 61 (38-126) U/L Ammonia (<30) umol/L Total Creatine Kinase 50 L (55-170) U/L CK-MB (CK-2) 0.4 (0.0-2.4) ng/mL CK-MB (CK-2) Rel Index 0.8 Troponin I <0.012 (0.000-0.034) ng/mL Total Protein 5.8 L (6.3-8.2) g/dL Albumin 3.5 (3.5-5.0) g/dL Urine Color Urine Appearance (Clear) Urine pH (5.0-8.0) Ur Specific [place] (1.001-1.035) Urine Protein (Negative) Urine Glucose (UA) (Negative) Urine Ketones (Negative) Urine Blood (Negative) Urine Nitrite (Negative) Urine Bilirubin (Negative) Urine Urobilinogen (<2.0) mg/dL Ur Leukocyte Esterase (Negative) Urine Opiates Screen (NotDetected) Ur Oxycodone Screen (NotDetected) Urine Methadone Screen (NotDetected) Ur Propoxyphene Screen (NotDetected) Ur Barbiturates Screen (NotDetected) U Tricyclic Antidepress (NotDetected) Ur Phencyclidine Scrn (NotDetected) Ur Amphetamines Screen (NotDetected) U Methamphetamines Scrn (NotDetected) U Benzodiazepines Scrn (NotDetected) Urine Cocaine Screen (NotDetected) U Marijuana (THC) Screen (NotDetected) 02/20/17 Range/Units 19:50 WBC (3.8-10.6) k/uL RBC (4.30-5.90) m/uL Hgb (13.0-17.5) gm/dL Hct (39.0-53.0) % MCV (80.0-100.0) fL MCH (25.0-35.0) pg MCHC (31.0-37.0) g/dL RDW (11.5-15.5) % Plt Count (150-450) k/uL Neutrophils % % Lymphocytes % % Monocytes % % Eosinophils % % Basophils % % Neutrophils # (1.3-7.7) k/uL Lymphocytes # (1.0-4.8) k/uL Monocytes # (0-1.0) k/uL Eosinophils # (0-0.7) k/uL Basophils # (0-0.2) k/uL Hypochromasia Anisocytosis Macrocytosis PT 12.5 H (9.0-12.0) sec INR 1.3 (<1.1) APTT 22.1 (22.0-30.0) sec Sodium (137-145) mmol/L Potassium (3.5-5.1) mmol/L Chloride (98-107) mmol/L Carbon Dioxide (22-30) mmol/L Anion Gap mmol/L BUN (9-20) mg/dL Creatinine (0.66-1.25) mg/dL Est GFR (MDRD) Af Amer (>60 ml/min/1.73 sqM) Est GFR (MDRD) Non-Af (>60 ml/min/1.73 sqM) Glucose (74-99) mg/dL POC Glucose (mg/dL) (75-99) mg/dL POC Glu House Carpenter Helper ID Calcium (8.4-10.2) mg/dL Total Bilirubin (0.2-1.3) mg/dL AST (17-59) U/L ALT (21-72) U/L Alkaline Phosphatase (38-126) U/L Ammonia (<30) umol/L Total Creatine Kinase (55-170) U/L CK-MB (CK-2) (0.0-2.4) ng/mL CK-MB (CK-2) Rel Index Troponin I (0.000-0.034) ng/mL Total Protein (6.3-8.2) g/dL Albumin (3.5-5.0) g/dL Urine Color Urine Appearance (Clear) Urine pH (5.0-8.0) Ur Specific [place] (1.001-1.035) Urine Protein (Negative) Urine Glucose (UA) (Negative) Urine Ketones (Negative) Urine Blood (Negative) Urine Nitrite (Negative) Urine Bilirubin (Negative) Urine Urobilinogen (<2.0) mg/dL Ur Leukocyte Esterase (Negative) Urine Opiates Screen (NotDetected) Ur Oxycodone Screen (NotDetected) Urine Methadone Screen (NotDetected) Ur Propoxyphene Screen (NotDetected) Ur Barbiturates Screen (NotDetected) U Tricyclic Antidepress (NotDetected) Ur Phencyclidine Scrn (NotDetected) Ur Amphetamines Screen (NotDetected) U Methamphetamines Scrn (NotDetected) U Benzodiazepines Scrn (NotDetected) Urine Cocaine Screen (NotDetected) U Marijuana (THC) Screen (NotDetected) Disposition Clinical Impression: Tremor, Confusion, NPH (normal pressure hydrocephalus), Anemia Disposition: OTHER INSTITUTION NOT DEFINED Referrals: Camelia Clarke MD [Primary Care Provider] - 1-2 days Time of Disposition: 21:11 - Out of Hospital Transfer - Req. Specs Out of Hospital Transfer - Requested Specifics: Other Emergency Center ([facility])
[2017-02-20 19:46] LABS: Appearance,Urine Clear (Clear); Bilirubin,Urine Negative (Negative); Glucose,Urine (UA) Negative (Negative); Ketones,Urine Negative (Negative); Leukocyte Esterase,Urine Negative (Negative); Nitrite,Urine Negative (Negative); Protein,Urine Trace (Negative); UA Billing (MACRO vs. MICRO) CHEM; Urobilinogen,Urine <2.0 mg/dL (<2.0)
[2017-02-20 20:14] LABS: Anisocytosis Moderate; Basophils % (A) 0 %; CH 29.1; CHCM 30.9; Eosinophils # (A) 0.1 k/uL (0-0.7); Eosinophils % (A) 2 %; HCT 25.5 % (39.0-53.0); HDW 3.06; HGB 7.9 gm/dL (13.0-17.5); Hypochromasia Moderate; Luc # (Auto) 0.27; Luc % (Auto) 4; Lymphocytes # (A) 1.5 k/uL (1.0-4.8); Lymphocytes % (A) 21 %; MCH 29.2 pg (25.0-35.0); MCHC 30.9 g/dL (31.0-37.0); MCV 94.6 fL (80.0-100.0); Macrocytosis Slight; Mean Platelet Volume 9.5; Monocytes # (A) 0.5 k/uL (0-1.0); Monocytes % (A) 6 %; Neutrophils % (A) 67 %; RDW 21.2 % (11.5-15.5); WBC 7.4 k/uL (3.8-10.6); WBC (Perox) 7.26
[2017-02-20 20:24] LABS: INR 1.3 (<1.1); Partial Thromboplastin Time 22.1 sec (22.0-30.0); Prothrombin Time 12.5 sec (9.0-12.0)
--- NOTE | 2017-02-20 20:28 | CT ---
EXAMINATION TYPE: CT brain wo con DATE OF EXAM: 02/20/2017 8:15 PM COMPARISON: 02/13/2017 HISTORY: Altered mental status. Seizures today. Right sided weakness. History of stroke and shunt cristo cement. CT DLP: 1116.00 mGycm Automated exposure control for dose reduction was used. FINDINGS: There is a ventricular shunt catheter with the tip in the frontal horn left lateral ventricle. There is a large area of encephalomalacia in the left cerebral hemisphere involving left temporal parietal and occipital lobes. There is no midline shift. There is no sign of intracranial hemorrhage. There is some mucosal thickening in the maxillary sinuses. There is a linear area of encephalomalacia in the right parietal lobe that measures 4 x 1 cm. There is slight prominence of the ventricles. There is la rge left parietal craniotomy defect. IMPRESSION: There is evidence for mild normal pressure type hydrocephalus. Large area of encephalomalacia consist ent with old infarct. No change compared to last exam.
--- NOTE | 2017-02-20 20:29 | XR ---
EXAMINATION TYPE: XR chest 2V DATE OF EXAM: 02/20/2017 8:19 PM COMPARISON: 02/15/2017 HISTORY: Altered mental status TECHNIQUE: Frontal and lateral views of the chest are obtained. FINDINGS: There is no heart failure nor confluent pneumonic infiltrate. There are no hilar masses. C ostophrenic angles are clear. There is a ventricular shunt catheter on the left side noted. There is old right-sided multiple healed rib fractures. IMPRESSION: No active cardiopulmonary disease. No change compared to last exam.
[2017-02-20 20:36] LABS: ALT 170 U/L (21-72); AST 26 U/L (17-59); Alkaline Phosphatase 61 U/L (38-126); Anion Gap 9 mmol/L; Blood Urea Nitrogen 11 mg/dL (9-20); Carbon Dioxide 23 mmol/L (22-30); Chloride 105 mmol/L (98-107); Glucose 103 mg/dL (74-99); Non-African American GFR(MDRD) >60 (>60 ml/min/1.73 sqM); Sodium 137 mmol/L (137-145); Total Bilirubin 0.7 mg/dL (0.2-1.3); Total Protein 5.8 g/dL (6.3-8.2)
[2017-02-20 20:38] LABS: Creatine Kinase 50 U/L (55-170)
[2017-02-20 20:51] LABS: Creatine Kinase MB 0.4 ng/mL (0.0-2.4); Troponin I <0.012 ng/mL (0.000-0.034)
[2017-02-20 21:39] VITALS: BP 156/67; PULSE 89; RESP 20; TEMP 98.7
[2017-02-20] MEDS ORDERED: LORazepam 2 MG/ML SYRINGE IV STA (21:43)
== END 2017-02-20 23:00 | disposition other institution (70) ==
LOC: EC 18:38
DX: R25.1 Tremor, unspecified (principal); R41.0 Disorientation, unspecified; G91.2 (Idiopathic) normal pressure hydrocephalus; D64.9 Anemia, unspecified; J44.9 Chronic obstructive pulmonary disease, unspecified; K21.9 Gastro-esophageal reflux disease without esophagitis; I10 Essential (primary) hypertension; G40.909 Epilepsy, unspecified, not intractable, without status epilepticus; F41.9 Anxiety disorder, unspecified; F90.9 Attention-deficit hyperactivity disorder, unspecified type; Z87.891 Personal history of nicotine dependence; Z79.01 Long term (current) use of anticoagulants; Z79.899 Other long term (current) drug therapy; Z88.5 Allergy status to narcotic agent
CPT/HCPCS: 36415; 93005; 80053; 82140; 82550; 82553; 84484; 85025; 85610; 85730; 81003; 80306; 71020; 70450; 99285; 96374; J2060

== ENCOUNTER 2018-02-22 20:42 | Emergency (ER) | payer OTHER, MEDICARE ==
[2018-02-22 20:54] VITALS: BP 92/58; PULSE 73; RESP 18; TEMP 98.5
[2018-02-22] MEDS ORDERED: DIPH,PERTUS(ACELL)TETVAC-LF 0.5 ML VIAL IM ONE (21:10)
--- NOTE | 2018-02-22 21:14 | ED ---
Fall HPI - General Chief Complaint: Fall Stated Complaint: FALL Time Seen by Provider: 02/22/18 21:04 Source: patient, family Mode of arrival: EMS - History of Present Illness Initial Comments: 47 years old male with a shunt in his ventricles fell today and fell backwards and hit back of his head has a laceration and there was no loss of consciousness he is on a Coumadin and denies any denies any other complaints at all. He denies any chest pain or shortness of breath no abdominal pain no injury to the upper or lower extremities he does have a laceration on the scalp - Related Data Home Medications Medication Instructions Recorded Confirmed oxyCODONE-APAP 10-325MG [Percocet 1 tab PO Q6H 04/16/15 02/22/18 10-325 mg] ALPRAZolam [Xanax] 0.25 mg PO Q6HR PRN 11/24/15 02/22/18 Acetaminophen Tab [Tylenol] 500 mg PO Q6H PRN 11/24/15 02/22/18 Diltiazem Cd [Cardizem CD] 120 mg PO DAILY@0600 11/24/15 02/22/18 Metoprolol Tartrate [Lopressor] 50 mg PO BID@0600,1800 11/24/15 02/22/18 Pravastatin Sodium [Pravachol] 40 mg PO DAILY 11/24/15 02/22/18 Temazepam [Restoril] 30 mg PO HS 11/24/15 02/22/18 guaiFENesin SYRUP 100MG/5ML 200 mg PO Q6HR PRN 11/24/15 02/22/18 [Robitussin] Ferrous Sulfate [Iron (65 MG 325 mg PO BID@0600,1800 12/16/15 02/22/18 Elemental)] Warfarin Sodium [Coumadin] 3 mg PO DAILY@1800 12/16/15 02/22/18 Gabapentin [Neurontin] 600 mg PO DAILY@1800 11/16/16 02/22/18 Dextroamphetamine/Amphetamine 10 mg PO BID@0600,1200 02/13/17 02/22/18 [Adderall] Docusate [Colace] 100 mg PO DAILY PRN 02/13/17 02/22/18 Lisinopril [Zestril] 2.5 mg PO DAILY@0600 02/13/17 02/22/18 Pantoprazole [Protonix] 40 mg PO DAILY@0600 02/13/17 02/22/18 Lacosamide [Vimpat] 100 mg PO BID@0600,1800 02/22/18 02/22/18 levETIRAcetam [Keppra] 1,500 mg PO BID@0600,1800 02/22/18 02/22/18 Allergies Allergy/AdvReac Type Severity Reaction Status Date / Time codeine AdvReac Nausea & Verified 02/22/18 21:39 Vomiting Review of Systems ROS Statement: Those systems with pertinent positive or pertinent negative responses have been documented in the HPI. ROS Other: All systems not noted in ROS Statement are negative. Past Medical History Past Medical History: COPD, CVA/TIA, GERD/Reflux, Hypertension, Seizure Disorder Additional Past Medical History / Comment(s): LAST SEIZURE 08/2016, HX BLOOD IN STOOL, LEFT SIDED WEAKNESS R/T CVA, Brain Shunt, currently tied; does not feel anything on the right side, right leg and arm very weaker - much weaker than the left side; legally blind in the right eye, pain in left shoulder from previous surgery in 2013 History of Any Multi-Drug Resistant Organisms: None Reported Past Surgical History: Cholecystectomy, Orthopedic Surgery Additional Past Surgical History / Comment(s): LEFT SHOULDER RECENT SX, LIBRA KNEE , RT ARM, STATES HAD A "BAD STAPH INFECTION YEARS AGO IN ONE KNEE", UNSURE IF MRSA, 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 Past Anesthesia/Blood Transfusion Reactions: No Reported Reaction Past Psychological History: ADD/ADHD, Anxiety Smoking Status: Former smoker Past Alcohol Use History: Abuse, Heavy Past Drug Use History: None Reported - Past Family History Father History Unknown: Yes Additional Family Medical History / Comment(s): Pt is adopted General Exam - General Exam Comments Initial Comments: General: The patient is awake and alert, because of his previous comorbidities , is quite forgetful very angry easily irritable and quite verbally abusive but no distress noticed Skin: Skin is warm and dry and no rashes or lesions are noted. Noticed a laceration on the scalp. It is about 7 cm long and 3 mm distal Eye: Pupils are equal, round and reactive to light, extra-ocular movements are intact; there is normal conjunctiva bilaterally. Ears, nose, mouth and throat: There are moist mucous membranes and no oral lesions. Neck: The neck is supple, under over C5 and C6 Cardiovascular: There is a regular rate and rhythm. No murmur, rub or gallop is appreciated. Respiratory: To auscultation bilateral, no wheezing no rhonchi no distress respiratory slater noticed Gastrointestinal: Soft, non-distended, non-tender abdomen without masses or organomegaly noted. There is no rebound or guarding present. Bowel sounds are unremarkable. Back: There is no tenderness to palpation in the midline. There is no obvious deformity. Musculoskeletal: Normal ROM, no tenderness, There is no pedal edema. There is no calf tenderness or swelling. No cords were appreciated. Neurological: CN II-XII intact, Cranial nerves III through XII are intact. There are no obvious motor or sensory deficits. Coordination appears grossly intact. Speech is normal. Psychiatric: quite angry, irritable, verbally abusive to his family seems quite disruptive for the other patients Limitations: no limitations Course Vital Signs 02/22/18 20:46 Temperature 98.5 F Pulse Rate 73 Respiratory 18 Rate Blood Pressure 92/58 O2 Sat by Pulse [address] and cervical spine CT was reviewed, they're unremarkable no new changes compared to the old studies to be discharged home to follow with his family doctor Procedures - Laceration Laceration #1 Consent Obtained: verbal consent Time Out Performed: Yes Site: scalp Description: linear Depth: simple, single layer Anesthetic Used: lidocaine 1% Anesthesia Technique: local infiltration Pre-repair: wound explored, irrigated extensively Size of Sutures: other (Required 8 toño to approximate the wound, the patient is not very cooperative, he is forgetful. He continued to move , repair was difficult) Medical Decision Making - Lab Data Result diagrams: 02/22/18 22:10 02/22/18 22:10 Lab Results 02/22/18 02/22/18 02/22/18 Range/Units 22:10 22:10 22:10 WBC 9.1 (3.8-10.6) k/uL RBC 3.83 L (4.30-5.90) m/uL Hgb 12.9 L (13.0-17.5) gm/dL Hct 39.4 (39.0-53.0) % MCV 102.9 H (80.0-100.0) fL MCH 33.7 (25.0-35.0) pg MCHC 32.8 (31.0-37.0) g/dL RDW 15.0 (11.5-15.5) % Plt Count 237 (150-450) k/uL Neutrophils % 65 % Lymphocytes % 23 % Monocytes % 8 % Eosinophils % 1 % Basophils % 0 % Neutrophils # 5.9 (1.3-7.7) k/uL Lymphocytes # 2.1 (1.0-4.8) k/uL Monocytes # 0.7 (0-1.0) k/uL Eosinophils # 0.1 (0-0.7) k/uL Basophils # 0.0 (0-0.2) k/uL Macrocytosis Slight PT 11.8 (9.0-12.0) sec INR 1.2 H (<1.2) Sodium 147 H (137-145) mmol/L Potassium 3.7 (3.5-5.1) mmol/L Chloride 111 H (98-107) mmol/L Carbon Dioxide 16 L (22-30) mmol/L Anion Gap 20 mmol/L BUN 15 (9-20) mg/dL Creatinine 1.32 H (0.66-1.25) mg/dL Est GFR (CKD-EPI)AfAm 75 (>60 ml/min/1.73 sqM) Est GFR (CKD-EPI)NonAf 65 (>60 ml/min/1.73 sqM) Glucose 86 (74-99) mg/dL Calcium 9.1 (8.4-10.2) mg/dL Total Bilirubin 0.3 (0.2-1.3) mg/dL AST 540 H (17-59) U/L ALT 220 H (21-72) U/L Alkaline Phosphatase 116 (38-126) U/L Total Protein 6.7 (6.3-8.2) g/dL Albumin 4.3 (3.5-5.0) g/dL Disposition Clinical Impression: Head injury, Neck injury, Laceration Disposition: HOME SELF-CARE Condition: Good Instructions: Fall Prevention for Older Adults (ED), Laceration (ED) Additional Instructions: Follow with her family doctor to remove the sutures in 7 days or return to the ER Is patient prescribed a controlled substance at d/c from ED?: No When asked, does pt state using other controlled substances?: No Referrals: Camelia Clarke MD [Primary Care Provider] - 1-2 days
[2018-02-22] MEDS ORDERED: ALPRAZolam 0.25 MG TAB PO STA (22:16)
[2018-02-22 22:31] LABS: Basophils % (A) 0 %; Eosinophils # (A) 0.1 k/uL (0-0.7); Eosinophils % (A) 1 %; HCT 39.4 % (39.0-53.0); HGB 12.9 gm/dL (13.0-17.5); Lymphocytes # (A) 2.1 k/uL (1.0-4.8); Lymphocytes % (A) 23 %; MCH 33.7 pg (25.0-35.0); MCHC 32.8 g/dL (31.0-37.0); MCV 102.9 fL (80.0-100.0); Macrocytosis Slight; Mean Platelet Volume 6.8; Monocytes # (A) 0.7 k/uL (0-1.0); Monocytes % (A) 8 %; Neutrophils # (A) 5.9 k/uL (1.3-7.7); Neutrophils % (A) 65 %; Platelet Count 237 k/uL (150-450); RBC 3.83 m/uL (4.30-5.90); WBC 9.1 k/uL (3.8-10.6)
[2018-02-22 22:40] LABS: INR 1.2 (<1.2); Prothrombin Time 11.8 sec (9.0-12.0)
[2018-02-22 22:47] LABS: Albumin 4.3 g/dL (3.5-5.0); Calcium 9.1 mg/dL (8.4-10.2); Potassium 3.7 mmol/L (3.5-5.1); Total Bilirubin 0.3 mg/dL (0.2-1.3); Total Protein 6.7 g/dL (6.3-8.2)
--- NOTE | 2018-02-23 00:19 | CT ---
EXAMINATION TYPE: CT brain ana vásquez con DATE OF EXAM: 02/22/2018 COMPARISON: 02/20/[address] scan. HISTORY: Fall with posterior head laceration. CT DLP: 1221 mGycm Automated exposure control for dose reduction was used. TECHNIQUE: CT scan of the head and cervical spine are performed without contrast. FINDINGS: There is a large area of encephalomalacia in the left cerebral hemisphere consistent with old infarct. There is ventricular shunt catheter with the tip in the frontal horn left lateral ventr icle. There is left-sided craniotomy defect. There is a 3 cm area of hypodensity in the right posteri or frontal lobe cortex. There is no midline shift. There is no evidence of intracranial hemorrhage.. Cervical vertebra have normal spacing and alignment. Posterior elements are intact. There is no evide nce of a fracture. Skull base is intact. IMPRESSION: Negative CT scan of the cervical spine. Large left hemisphere old infarct without change compared to old exam. There is old right posterior f rontal lobe cortical infarct without change. No acute intracranial abnormality.
== END 2018-02-23 00:26 | disposition home or self-care (01) ==
LOC: EC 20:42
DX: S01.01XA Laceration without foreign body of scalp, initial encounter (principal); S19.9XXA Unspecified injury of neck, initial encounter; I10 Essential (primary) hypertension; G40.909 Epilepsy, unspecified, not intractable, without status epilepticus; F41.9 Anxiety disorder, unspecified; F90.9 Attention-deficit hyperactivity disorder, unspecified type; H54.8 Legal blindness, as defined in USA; Z23 Encounter for immunization; Z86.73 Personal history of transient ischemic attack (TIA), and cerebral infarction without residual deficits; Z98.2 Presence of cerebrospinal fluid drainage device; Z87.891 Personal history of nicotine dependence; Z98.890 Other specified postprocedural states; Z79.01 Long term (current) use of anticoagulants; Z79.899 Other long term (current) drug therapy; Z88.5 Allergy status to narcotic agent; W01.190A Fall on same level from slipping, tripping and stumbling with subsequent striking against furniture, initial encounter; Y92.009 Unspecified place in unspecified non-institutional (private) residence as the place of occurrence of the external cause
CPT/HCPCS: 12002; 36415; 70450; 72125; 80053; 85025; 85610; 90471; 90715; 99284

== ENCOUNTER → 2018-04-04 | Outpatient (CLI) | payer OTHER, MEDICARE ==
[2018-04-04 10:16] LABS: INR 1.2 (<1.2); Prothrombin Time 11.2 sec (9.0-12.0)
== END | disposition home or self-care (01) ==
LOC: LABWHC1 09:42
PROVIDERS: ATTEND Dentist Oral and Maxillofacial Surgery
DX: D68.9 Coagulation defect, unspecified (principal)
CPT/HCPCS: 36415; 85610

== ENCOUNTER 2018-04-15 23:16 | Emergency (ER) | payer OTHER, MEDICARE ==
[2018-04-15 23:31] VITALS: TEMP 97
[2018-04-16] MEDS ORDERED: LORazepam 2 MG/ML INJ IV STA (00:06)
[2018-04-16] MEDS ORDERED: levETIRAcetam IV 1,000 MG in SALINE 1 100ML.BAG IVPB STA (00:06)
[2018-04-16] MEDS ORDERED: SODIUM CHLORIDE 0.9% 1,000 ML IV STA (00:06)
--- NOTE | 2018-04-16 00:10 | ED ---
Seizure HPI - General Chief Complaint: Seizure Stated Complaint: Seizure Time Seen by Provider: 04/15/18 23:41 Source: EMS Mode of arrival: EMS Limitations: altered mental status - History of Present Illness Initial Comments: 47 years old male has history of a seizure disorder and he has also brain shunt in place and out of his Keppra but 5 days ago he takes Keppra 1500 mg twice daily he does have a [place] term memory loss family has been now but in touch with his neurologist. He is also minor Coumadin and seizure today lasted around 10 minutes according to the though there is no injury that's no head injury from the seizure right now is postictal has a mild headache no neck pain no chest pain or shortness of breath he does complain about Some pain in his belly but is no injury from the fall today - Related Data Home Medications Medication Instructions Recorded Confirmed oxyCODONE-APAP 10-325MG [Percocet 1 tab PO Q6H 04/16/15 04/15/18 10-325 mg] ALPRAZolam [Xanax] 0.25 mg PO Q6HR PRN 11/24/15 04/15/18 Acetaminophen Tab [Tylenol] 500 mg PO Q6H PRN 11/24/15 04/15/18 Diltiazem Cd [Cardizem CD] 120 mg PO DAILY@0600 11/24/15 04/15/18 Metoprolol Tartrate [Lopressor] 50 mg PO BID@0600,1800 11/24/15 04/15/18 Pravastatin Sodium [Pravachol] 40 mg PO DAILY 11/24/15 04/15/18 Temazepam [Restoril] 30 mg PO HS 11/24/15 04/15/18 guaiFENesin SYRUP 100MG/5ML 200 mg PO Q6HR PRN 11/24/15 04/15/18 [Robitussin] Ferrous Sulfate [Iron (65 MG 325 mg PO BID@0600,1800 12/16/15 04/15/18 Elemental)] Warfarin Sodium [Coumadin] 3 mg PO DAILY@1800 12/16/15 04/15/18 Gabapentin [Neurontin] 600 mg PO DAILY@1800 11/16/16 04/15/18 Dextroamphetamine/Amphetamine 10 mg PO BID@0600,1200 02/13/17 04/15/18 [Adderall] Docusate [Colace] 100 mg PO DAILY PRN 02/13/17 04/15/18 Lisinopril [Zestril] 2.5 mg PO DAILY@0600 02/13/17 04/15/18 Pantoprazole [Protonix] 40 mg PO DAILY@0600 02/13/17 04/15/18 Lacosamide [Vimpat] 100 mg PO BID@0600,1800 02/22/18 04/15/18 levETIRAcetam [Keppra] 1,500 mg PO BID@0600,1800 02/22/18 04/15/18 Previous Rx's Medication Instructions Recorded levETIRAcetam [Keppra] 1,500 mg PO Q12HR #60 tab 04/16/18 Allergies Allergy/AdvReac Type Severity Reaction Status Date / Time codeine AdvReac Nausea & Verified 04/15/18 23:26 Vomiting Review of Systems ROS Statement: Those systems with pertinent positive or pertinent negative responses have been documented in the HPI. ROS Other: All systems not noted in ROS Statement are negative. Past Medical History Past Medical History: COPD, CVA/TIA, GERD/Reflux, Hypertension, Seizure Disorder Additional Past Medical History / Comment(s): LAST SEIZURE 08/2016, HX BLOOD IN STOOL, LEFT SIDED WEAKNESS R/T CVA, Brain Shunt, currently tied; does not feel anything on the right side, right leg and arm very weaker - much weaker than the left side; legally blind in the right eye, pain in left shoulder from previous surgery in 2013 History of Any Multi-Drug Resistant Organisms: None Reported Past Surgical History: Cholecystectomy, Orthopedic Surgery Additional Past Surgical History / Comment(s): LEFT SHOULDER RECENT SX, LIBRA KNEE , RT ARM, STATES HAD A "BAD STAPH INFECTION YEARS AGO IN ONE KNEE", UNSURE IF MRSA, vp of product shunt, bone removed and replaced in his skull at [facility]. Past Anesthesia/Blood Transfusion Reactions: No Reported Reaction Past Psychological History: ADD/ADHD, Anxiety Smoking Status: Former smoker Past Alcohol Use History: Abuse, Heavy Past Drug Use History: None Reported - Past Family History Father History Unknown: Yes Additional Family Medical History / Comment(s): Pt is adopted General Exam - General Exam Comments Initial Comments: General: The patient is awake and alert, in no distress, GCS is 15 Skin: Skin is warm and dry and no rashes or lesions are noted. Eye: Pupils are equal, round and reactive to light, extra-ocular movements are intact; there is normal conjunctiva bilaterally. Ears, nose, mouth and throat: There are moist mucous membranes and no oral lesions. Neck: The neck is supple, there is no tenderness Cardiovascular: There is a regular rate and rhythm. No murmur, rub or gallop is appreciated. Respiratory: To auscultation bilateral, no wheezing no rhonchi no distress respiratory slater noticed Gastrointestinal: Mild tenderness noticed over the umbilical area positive bowel sounds no guarding no rebounds Back: There is no tenderness to palpation in the midline. There is no obvious deformity. Musculoskeletal: Normal ROM, no tenderness, There is no pedal edema. There is no calf tenderness or swelling. No cords were appreciated. Neurological: CN II-XII intact, Cranial nerves III through XII are intact. There are no obvious motor or sensory deficits. Coordination appears grossly intact. Speech is normal. Psychiatric: Cooperative, appropriate mood & affect, normal judgment. Limitations: altered mental status Course Vital Signs 04/15/18 04/16/18 23:26 00:45 Temperature 97 F L Pulse Rate 70 79 Respiratory 16 18 Rate Blood Pressure 160/115 164/115 O2 Sat by Pulse 96 95 Oximetry Patient is reassessed at term 145) still pending, disposition be done as soon as Available Head CT Is Normal No New Changes Noticed Him CBC Is Also Unremarkable Considering Patient Hasn't Had Any Keppra for 5 Days She Was Given a Gram of Keppra IV Since her labs are reviewed, CBC, his metabolic panel head CT is normal patient be gone home to follow-up with her neurologist she sees neurologist at [facility] he did run out of his Keppra he takes he takes 1500 mg twice daily she be given prescription for next 15 days and then they'll see - Reevaluation(s) Reevaluation #1: EKG is a sinus rhythm ventricular rate is 74 MS interval is 220 QRS duration is 96 QT/QTc is 480/463 review cc EKG does not reveal any ST elevation noticed some T-wave flattening in S2 depression in V4 V5 and V6 and patient has no chest pain 04/16/18 02:49 Medical Decision Making - Lab Data Result diagrams: 04/16/18 01:20 04/16/18 01:20 Lab Results 04/16/18 04/16/18 04/16/18 Range/Units 01:20 01:20 01:20 WBC 4.9 (3.8-10.6) k/uL RBC 4.01 L (4.30-5.90) m/uL Hgb 12.7 L (13.0-17.5) gm/dL Hct 40.2 (39.0-53.0) % MCV 100.3 H (80.0-100.0) fL MCH 31.6 (25.0-35.0) pg MCHC 31.5 (31.0-37.0) g/dL RDW 15.0 (11.5-15.5) % Plt Count 204 (150-450) k/uL Neutrophils % 69 % Lymphocytes % 21 % Monocytes % 5 % Eosinophils % 3 % Basophils % 0 % Neutrophils # 3.4 (1.3-7.7) k/uL Lymphocytes # 1.0 (1.0-4.8) k/uL Monocytes # 0.2 (0-1.0) k/uL Eosinophils # 0.2 (0-0.7) k/uL Basophils # 0.0 (0-0.2) k/uL Macrocytosis Slight PT 17.2 H (9.0-12.0) sec INR 1.9 H (<1.2) Sodium 136 L (137-145) mmol/L Potassium 4.3 (3.5-5.1) mmol/L Chloride 107 (98-107) mmol/L Carbon Dioxide 18 L (22-30) mmol/L Anion Gap 11 mmol/L BUN 17 (9-20) mg/dL Creatinine 0.80 (0.66-1.25) mg/dL Est GFR (CKD-EPI)AfAm >90 (>60 ml/min/1.73 sqM) Est GFR (CKD-EPI)NonAf >90 (>60 ml/min/1.73 sqM) Glucose 121 H (74-99) mg/dL Calcium 9.4 (8.4-10.2) mg/dL Total Bilirubin 0.4 (0.2-1.3) mg/dL AST 21 (17-59) U/L ALT 65 (21-72) U/L Alkaline Phosphatase 74 (38-126) U/L Total Protein 6.9 (6.3-8.2) g/dL Albumin 4.3 (3.5-5.0) g/dL Disposition Clinical Impression: Seizure disorder Disposition: HOME SELF-CARE Condition: Good Instructions: Recurrent Seizures in Adults (ED) Prescriptions: levETIRAcetam [Keppra] 1,500 mg PO Q12HR #60 tab Is patient prescribed a controlled substance at d/c from ED?: No Referrals: Cayetano Galloway MD [Primary Care Provider] - 1-2 days
--- NOTE | 2018-04-16 00:56 | CT ---
EXAMINATION TYPE: CT brain wo con DATE OF EXAM: 04/16/2018 COMPARISON: 02/22/2018 HISTORY: Seizures CT DLP: 1075.90 mGycm. Automated Exposure Control for Dose Reduction was Utilized. TECHNIQUE: CT scan of the head is performed without contrast. FINDINGS: There is mucosal thickening in the maxillary sinuses and ethmoid sinuses. There is similar change in the sphenoid and frontal sinuses. There is a large area of encephalomalacia with fluid density in the left cerebral hemisphere involvin g the entire left temporal lobe left occipital lobe and some of the left parietal lobe. There is old left craniotomy defect. There is drainage catheter with the tip in the frontal horn left lateral vent ricle. There is no midline shift. There is old 3 cm infarct right posterior frontal lobe. There is ol d infarct left posterior frontal lobe. IMPRESSION: Large area of encephalomalacia in the left cerebral hemisphere. Old left frontal and right frontal co rtical infarcts. Old left temporal parietal and occipital large infarcts. No change compared to old e xam. No hemorrhage.
--- NOTE | 2018-04-16 00:59 | XR ---
EXAMINATION TYPE: XR abdomen acute w cxr DATE OF EXAM: 04/16/2018 COMPARISON: Chest x-ray 02/20/2017 HISTORY: Nausea. TECHNIQUE: Upright and supine views of the abdomen were obtained. There is a chest x-ray. FINDINGS: There is no heart failure nor confluent pneumonic infiltrate. Costophrenic angles are clear. There ar e clips from cholecystectomy. There is ventriculoperitoneal shunt catheter. There is no sign of intes tinal obstruction or pneumoperitoneum. Fecal pattern is normal. There is a oval-shaped density over t he left upper quadrant that could be medication in the small bowel. Fecal pattern is normal. There is no evidence of a mass.. IMPRESSION: Nonacute abdomen. No active cardiopulmonary disease. Old multiple right-sided healed rib fractures. A bdomen is stable compared to 06/06 16. Chest is stable compared to 02/20/2017.
[2018-04-16 01:28] VITALS: BP 164/115; PULSE 79; RESP 18
[2018-04-16 01:43] LABS: Basophils % (A) 0 %; Eosinophils # (A) 0.2 k/uL (0-0.7); Eosinophils % (A) 3 %; HCT 40.2 % (39.0-53.0); HGB 12.7 gm/dL (13.0-17.5); Lymphocytes % (A) 21 %; MCH 31.6 pg (25.0-35.0); MCHC 31.5 g/dL (31.0-37.0); MCV 100.3 fL (80.0-100.0); Macrocytosis Slight; Mean Platelet Volume 6.8; Monocytes # (A) 0.2 k/uL (0-1.0); Monocytes % (A) 5 %; Neutrophils # (A) 3.4 k/uL (1.3-7.7); Neutrophils % (A) 69 %; Platelet Count 204 k/uL (150-450); RBC 4.01 m/uL (4.30-5.90); WBC 4.9 k/uL (3.8-10.6)
[2018-04-16 01:51] LABS: INR 1.9 (<1.2); Prothrombin Time 17.2 sec (9.0-12.0)
[2018-04-16 01:52] LABS: ALT 65 U/L (21-72); AST 21 U/L (17-59); Albumin 4.3 g/dL (3.5-5.0); Alkaline Phosphatase 74 U/L (38-126); Anion Gap 11 mmol/L; Blood Urea Nitrogen 17 mg/dL (9-20); Calcium 9.4 mg/dL (8.4-10.2); Carbon Dioxide 18 mmol/L (22-30); Chloride 107 mmol/L (98-107); Glucose 121 mg/dL (74-99); Potassium 4.3 mmol/L (3.5-5.1); Sodium 136 mmol/L (137-145); Total Bilirubin 0.4 mg/dL (0.2-1.3); Total Protein 6.9 g/dL (6.3-8.2)
== END 2018-04-16 03:36 | disposition home or self-care (01) ==
LOC: EC 23:16 → SUPCPDRO 23:16 → EC 04-16 03:36
DX: G40.909 Epilepsy, unspecified, not intractable, without status epilepticus (principal); R41.3 Other amnesia; R40.2412 Glasgow coma scale score 13-15, at arrival to emergency department; J44.9 Chronic obstructive pulmonary disease, unspecified; I10 Essential (primary) hypertension; K21.9 Gastro-esophageal reflux disease without esophagitis; F90.9 Attention-deficit hyperactivity disorder, unspecified type; Z90.49 Acquired absence of other specified parts of digestive tract; F41.9 Anxiety disorder, unspecified; Z86.73 Personal history of transient ischemic attack (TIA), and cerebral infarction without residual deficits; Z87.891 Personal history of nicotine dependence; Z79.891 Long term (current) use of opiate analgesic; Z79.01 Long term (current) use of anticoagulants; Z79.899 Other long term (current) drug therapy; Z88.5 Allergy status to narcotic agent; W19.XXXA Unspecified fall, initial encounter
CPT/HCPCS: 36415; 93005; 80053; 80177; 85025; 85610; 74022; 70450; 99285; 96365; 96366; 96375; J2060; J1953

== ENCOUNTER → 2018-07-07 | Outpatient (CLI) | payer OTHER, MEDICARE ==
--- NOTE | 2018-07-07 13:12 | XR ---
EXAMINATION TYPE: XR foot complete LT, XR ankle complete LT DATE OF EXAM: 07/07/2018 CLINICAL HISTORY: Fall injury with pain TECHNIQUE: Frontal, lateral and oblique images of the left ankle and foot are obtained. COMPARISON: None. FINDINGS: There is no acute fracture/dislocation evident in the left ankle. The ankle mortise appea rs within normal limits. Mild diffuse subcutaneous edema is seen. There is no acute fracture or dislocation evident in the left foot. Flexion in toes makes evaluation at this level slightly suboptimal. There is deformity suspected old fracture through the distal [facility] of the fifth proximal phalanx. Mild diffuse subcutaneous edema is present. Joint spaces are prese rved. IMPRESSION: There is no acute fracture or dislocation in the left ankle or foot.
== END ==
LOC: RADXRMAIN 12:18
PROVIDERS: ATTEND Internal Medicine
DX: S99.912A Unspecified injury of left ankle, initial encounter (principal)

== ENCOUNTER 2018-07-14 11:56 | Inpatient (IN) | payer OTHER, MEDICARE ==
--- NOTE | 2018-07-14 12:11 | ED ---
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 Gates for low blood pressure and supratherapeutic INR. Upon history taking is limited due to pt cognitive deficits, pt is unable at times to formulate complete sentences, express thoughts- states that this is baseline. Pt is able to deny abdominal pain, hematochezia, melena, hematemesis, chest pain, shortness of breath, dizziness, back pain, fever, chills, vomiting, nausea. Patient does state that he has a headache, he states that this is normal for him he has daily headaches. mentioned there has been new bruising on the patients anterior aspect of the right thigh. Upon arrival pt BP is 98/73, pt is pale. denies pt mental status as altered. (Kassandra Chapman) - Related Data Home Medications Medication Instructions Recorded Confirmed oxyCODONE-APAP 10-325MG [Percocet 1 tab PO Q6H 04/16/15 07/14/18 10-325 mg] ALPRAZolam [Xanax] 0.25 mg PO Q6HR PRN 11/24/15 07/14/18 Acetaminophen Tab [Tylenol] 500 mg PO Q6H PRN 11/24/15 07/14/18 Diltiazem Cd [Cardizem CD] 120 mg PO DAILY@0600 11/24/15 07/14/18 Metoprolol Tartrate [Lopressor] 50 mg PO BID@0600,1800 11/24/15 07/14/18 Pravastatin Sodium [Pravachol] 40 mg PO DAILY 11/24/15 07/14/18 Temazepam [Restoril] 30 mg PO HS 11/24/15 07/14/18 guaiFENesin SYRUP 100MG/5ML 200 mg PO Q6HR PRN 11/24/15 07/14/18 [Robitussin] Ferrous Sulfate [Iron (65 MG 325 mg PO BID@0600,1800 12/16/15 07/14/18 Elemental)] Gabapentin [Neurontin] 600 mg PO TID 11/16/16 07/14/18 Dextroamphetamine/Amphetamine 10 mg PO BID@0600,1200 02/13/17 07/14/18 [Adderall] Docusate [Colace] 100 mg PO DAILY PRN 02/13/17 07/14/18 Lisinopril [Zestril] 2.5 mg PO DAILY@0600 02/13/17 07/14/18 Pantoprazole [Protonix] 40 mg PO DAILY@0600 02/13/17 07/14/18 Lacosamide [Vimpat] 100 mg PO BID@0600,1800 02/22/18 07/14/18 levETIRAcetam [Keppra] 1,500 mg PO BID@0500,1700 02/22/18 07/14/18 Warfarin Sodium 5 mg PO HS 07/14/18 07/14/18 Allergies Allergy/AdvReac Type Severity Reaction Status Date / Time codeine AdvReac Nausea & Verified 07/14/18 13:07 Vomiting Review of Systems ROS Other: All systems not noted in ROS Statement are negative. <Kassandra Chapman - Last Filed: 07/14/18 15:25> ROS Other: All systems not noted in ROS Statement are negative. <Pradip Villa - Last Filed: 07/14/18 16:28> ROS Statement: Those systems with pertinent positive or pertinent negative responses have been documented in the HPI. Past Medical History Past Medical History: COPD, CVA/TIA, GERD/Reflux, Hypertension, Seizure Disorder Additional Past Medical History / Comment(s): LAST SEIZURE 08/2016, HX BLOOD IN STOOL, LEFT SIDED WEAKNESS R/T CVA, Brain Shunt, currently tied; does not feel anything on the right side, right leg and arm very weaker - much weaker than the left side; legally blind in the right eye, pain in left shoulder from previous surgery in 2014 History of Any Multi-Drug Resistant Organisms: None Reported Past Surgical History: Cholecystectomy, Orthopedic Surgery Additional Past Surgical History / Comment(s): LEFT SHOULDER RECENT SX, LIBAR KNEE , RT ARM, STATES HAD A "BAD STAPH INFECTION YEARS AGO IN ONE KNEE", UNSURE IF MRSA, [employer] communications shunt, bone removed and replaced in his skull at [facility]. Past Anesthesia/Blood Transfusion Reactions: No Reported Reaction Past Psychological History: ADD/ADHD, Anxiety Smoking Status: Former smoker Past Alcohol Use History: Abuse, Heavy Past Drug Use History: None Reported - Past Family History Father History Unknown: Yes Additional Family Medical History / Comment(s): Pt is adopted <Kassandra Chapman - Last Filed: 07/14/18 15:25> General Exam Limitations: no limitations <Kassandra Chapman - Last Filed: 07/14/18 15:25> General appearance: alert, in no apparent distress Head exam: Present: atraumatic, normocephalic, normal inspection Eye exam: Present: normal appearance, PERRL, EOMI. Absent: scleral icterus, conjunctival injection, periorbital swelling ENT exam: Present: normal exam, mucous membranes moist Neck exam: Present: normal inspection. Absent: tenderness, meningismus, lymphadenopathy Respiratory exam: Present: normal lung sounds bilaterally. Absent: respiratory distress, wheezes, rales, rhonchi, stridor Cardiovascular Exam: Present: regular rate, normal rhythm, normal heart sounds. Absent: systolic murmur, diastolic murmur, rubs, gallop, clicks GI/Abdominal exam: Present: soft, normal bowel sounds. Absent: distended, tenderness, guarding, rebound, rigid Extremities exam: Present: normal inspection, full ROM, normal capillary refill. Absent: tenderness, pedal edema, joint swelling, calf tenderness Back exam: Present: normal inspection Neurological exam: Present: alert, oriented X3, CN II-XII intact Psychiatric exam: Present: normal affect, normal mood Skin exam: Present: warm, dry, intact, normal color. Absent: rash <Pradip Villa - Last Filed: 07/14/18 16:28> - General Exam Comments Initial Comments: General: The patient is awake and alert, in no distress, patient is pale, nondiaphoretic Eye: Left pupil, round sluggish reaction to light, extra-ocular movements are intact. No nystagmus. There is normal conjunctiva bilaterally. No signs of icterus. Ears, nose, mouth and throat: There are moist mucous membranes and no oral lesions. TM WNL b/l. Neck: The neck is supple, there is no tenderness or JVD. Cardiovascular: There is a regular rate and rhythm. No murmur, rub or gallop is appreciated. Respiratory: Lungs are clear to auscultation, respirations are non-labored, breath sounds are equal. No wheezes, stridor, rales, or rhonchi. Gastrointestinal: Soft, non-distended, abdomen without masses or organomegaly noted. Pt did mention mild discomfort to palpation of the lower abdomen. There is no rebound or guarding present. No CVA tenderness. Bowel sounds are unremarkable.Guiac (-) Musculoskeletal: Normal ROM, no tenderness. Strength 5/5 on the left. Unable to use right arm Sensation intact. Radial pulses equal bilaterally 2+. Neurological: A&O x 3. CN II-XII intact, There are right sided motor deficits. Coordination appears grossly intact on the left side. Speech is broke, pt has difficulty articulating complete sentences ( states this is baseline). Skin: Skin is warm and dry and no rashes or lesions are noted. Significant ecchymosis of the right anterior thigh. Psychiatric: Cooperative, able to follow verbal commands (Kassandra Chapman) Vital Signs 07/14/18 07/14/18 07/14/18 12:06 12:46 12:50 Temperature 97.4 F L Pulse Rate 80 76 Respiratory 18 18 12 Rate Blood Pressure 98/73 98/67 98/67 O2 Sat by Pulse 94 L 100 98 Oximetry 07/14/18 07/14/18 07/14/18 13:00 13:10 13:15 Temperature Pulse Rate 81 Respiratory 18 Rate Blood Pressure 98/67 98/71 98/71 O2 Sat by Pulse Oximetry 07/14/18 07/14/18 07/14/18 13:20 13:25 13:30 Temperature Pulse Rate Respiratory Rate Blood Pressure 98/71 98/71 98/71 O2 Sat by Pulse Oximetry 07/14/18 07/14/18 07/14/18 13:40 13:45 13:50 Temperature Pulse Rate 77 75 77 Respiratory 18 18 14 Rate Blood Pressure 107/74 107/74 O2 Sat by Pulse 99 100 100 Oximetry 07/14/18 07/14/18 07/14/18 13:55 14:00 14:05 Temperature Pulse Rate 81 77 75 Respiratory 18 11 L 11 L Rate Blood Pressure 107/74 107/74 104/74 O2 Sat by Pulse 100 100 100 Oximetry 07/14/18 07/14/18 07/14/18 14:10 14:15 14:20 Temperature Pulse Rate 75 76 79 Respiratory 11 L 11 L 18 Rate Blood Pressure 104/74 104/74 104/74 O2 Sat by Pulse 100 100 99 Oximetry 07/14/18 07/14/18 07/14/18 14:25 14:30 14:35 Temperature Pulse Rate 84 79 77 Respiratory 17 18 15 Rate Blood Pressure 104/74 104/74 105/75 O2 Sat by Pulse 99 100 99 Oximetry 07/14/18 07/14/18 07/14/18 14:40 14:45 14:50 Temperature Pulse Rate 77 78 78 Respiratory 18 13 16 Rate Blood Pressure 105/75 105/75 105/75 O2 Sat by Pulse 97 100 97 Oximetry 07/14/18 07/14/18 07/14/18 14:55 15:00 15:05 Temperature Pulse Rate 77 80 80 Respiratory 15 11 L 12 Rate Blood Pressure 105/75 105/75 101/71 O2 Sat by Pulse 98 100 100 Oximetry 07/14/18 07/14/18 07/14/18 15:10 15:15 15:20 Temperature Pulse Rate 81 79 80 Respiratory 9 L 10 L 12 Rate Blood Pressure 101/71 101/71 101/71 O2 Sat by Pulse 100 100 100 Oximetry 07/14/18 07/14/18 07/14/18 15:25 15:30 15:44 Temperature 97.5 F L Pulse Rate 80 83 Respiratory 9 L 20 Rate Blood Pressure 101/71 101/71 88/61 O2 Sat by Pulse 100 Oximetry 07/14/18 07/14/18 07/14/18 15:45 15:50 15:54 Temperature 98.1 F Pulse Rate 72 85 Respiratory 18 Rate Blood Pressure 88/61 88/61 99/72 O2 Sat by Pulse 100 100 Oximetry 07/14/18 07/14/18 07/14/18 15:55 16:00 16:05 Temperature Pulse Rate 85 86 83 Respiratory 11 L 9 L 10 L Rate Blood Pressure 88/61 99/72 O2 Sat by Pulse 100 100 100 Oximetry 07/14/18 07/14/18 07/14/18 16:10 16:15 16:18 Temperature 97.8 F Pulse Rate 87 87 65 Respiratory 22 13 18 Rate Blood Pressure 99/72 99/72 84/48 O2 Sat by Pulse 98 Oximetry 07/14/18 16:20 Temperature Pulse Rate 84 Respiratory 11 L Rate Blood Pressure 92/67 O2 Sat by Pulse Oximetry Medical Decision Making - Lab Data Result diagrams: 07/14/18 13:09 07/14/18 13:09 <Kassandra Chapman - Last Filed: 07/14/18 15:25> - Lab Data Result diagrams: 07/14/18 13:09 07/14/18 13:09 <Pradip Villa - Last Filed: 07/14/18 16:28> - Medical Decision Making 48yo sent by PCP for low BP and INR elevation. HgB 5.6, INR 7. Remaining labs as noted above. Reviewed by myself and Dr Kirkpatrick. Pt blood pressure initially 98/73 repeat 104/74. Pt given 1L bolus. Transfused with RBCs after type and screen, pt given k-centra per pharmacy dosing. CT abdomen/pelvis (-) for intra- abdominal bleed at this time, CT brain without contrast no signs of intracranial hemorrhage. Chest x-ray negative. Guaiac negative. Dr. Galloway paged by Dr. Villa who accepted admission. Nasr with gastroenterology was consulted. Pt was transferred to floor in. (Kassandra Chapman) 48 male the ER with history of alcohol is will be admitted alcohol past week, patient also with persistent GI bleed, no active GI bleed, anemia. Patient also have INR reversed (Pradip Villa) - Lab Data Lab Results 07/14/18 07/14/18 07/14/18 Range/Units 13:09 13:09 13:09 WBC 6.8 (3.8-10.6) k/uL RBC 1.52 L (4.30-5.90) m/uL Hgb 5.6 L* (13.0-17.5) gm/dL Hct 19.0 L* (39.0-53.0) % MCV 124.9 H (80.0-100.0) fL MCH 36.8 H (25.0-35.0) pg MCHC 29.5 L (31.0-37.0) g/dL RDW 19.7 H (11.5-15.5) % Plt Count 328 (150-450) k/uL Hypochromasia Marked Anisocytosis Slight Macrocytosis Marked PT (9.0-12.0) sec INR (<1.2) APTT (22.0-30.0) sec Sodium 133 L (137-145) mmol/L Potassium 4.2 (3.5-5.1) mmol/L Chloride 105 (98-107) mmol/L Carbon Dioxide 16 L (22-30) mmol/L Anion Gap 12 mmol/L BUN 9 (9-20) mg/dL Creatinine 0.69 (0.66-1.25) mg/dL Est GFR (CKD-EPI)AfAm >90 (>60 ml/min/1.73 sqM) Est GFR (CKD-EPI)NonAf >90 (>60 ml/min/1.73 sqM) Glucose 136 H (74-99) mg/dL Calcium 7.7 L (8.4-10.2) mg/dL Total Bilirubin 0.9 (0.2-1.3) mg/dL AST 26 (17-59) U/L ALT 19 L (21-72) U/L Alkaline Phosphatase 125 (38-126) U/L Total Creatine Kinase 106 (55-170) U/L CK-MB (CK-2) 1.1 (0.0-2.4) ng/mL CK-MB (CK-2) Rel Index 1.0 Troponin I <0.012 (0.000-0.034) ng/mL Total Protein 4.5 L (6.3-8.2) g/dL Albumin 2.2 L (3.5-5.0) g/dL Stool Occult Blood (Negative) Blood Type Blood Type Recheck Antibody Screen Crossmatch Spec Expiration Date 07/14/18 07/14/18 07/14/18 Range/Units 13:09 13:09 13:09 WBC (3.8-10.6) k/uL RBC (4.30-5.90) m/uL Hgb (13.0-17.5) gm/dL Hct (39.0-53.0) % MCV (80.0-100.0) fL MCH (25.0-35.0) pg MCHC (31.0-37.0) g/dL RDW (11.5-15.5) % Plt Count (150-450) k/uL Hypochromasia Anisocytosis Macrocytosis PT 64.2 H (9.0-12.0) sec INR 7.0 H* (<1.2) APTT 57.5 H (22.0-30.0) sec Sodium (137-145) mmol/L Potassium (3.5-5.1) mmol/L Chloride (98-107) mmol/L Carbon Dioxide (22-30) mmol/L Anion Gap mmol/L BUN (9-20) mg/dL Creatinine (0.66-1.25) mg/dL Est GFR (CKD-EPI)AfAm (>60 ml/min/1.73 sqM) Est GFR (CKD-EPI)NonAf (>60 ml/min/1.73 sqM) Glucose (74-99) mg/dL Calcium (8.4-10.2) mg/dL Total Bilirubin (0.2-1.3) mg/dL AST (17-59) U/L ALT (21-72) U/L Alkaline Phosphatase (38-126) U/L Total Creatine Kinase (55-170) U/L CK-MB (CK-2) (0.0-2.4) ng/mL CK-MB (CK-2) Rel Index Troponin I (0.000-0.034) ng/mL Total Protein (6.3-8.2) g/dL Albumin (3.5-5.0) g/dL Stool Occult Blood Negative (Negative) Blood Type A Positive Blood Type Recheck No Antibody Screen NEGATIVE Crossmatch See Detail Spec Expiration Date 07/17/2018 - 2308 Critical Care Time Critical Care Time: Yes Total Critical Care Time: 31 <Pradip Villa - Last Filed: 07/14/18 16:28> Disposition Is patient prescribed a controlled substance at d/c from ED?: No Time of Disposition: 15:19 Decision to Admit Reason: Admit from EC Decision Date: 07/14/18 Decision Time: 15:19 <Kassandra Chapman - Last Filed: 07/14/18 15:25> <Pradip Villa - Last Filed: 07/14/18 16:28> Clinical Impression: Supratherapeutic INR, International normalized ratio (INR) greater than 3, Anemia Disposition: ADMITTED IP TO THIS HOSP Condition: Stable
[2018-07-14] MEDS ORDERED: SODIUM CHLORIDE 0.9% 1,000 ML IV STA (12:12)
[2018-07-14 13:39] LABS: Anisocytosis Slight; Hypochromasia Marked; MCH 36.8 pg (25.0-35.0); MCHC 29.5 g/dL (31.0-37.0); MCV 124.9 fL (80.0-100.0); Macrocytosis Marked; Mean Platelet Volume 7.7; Platelet Count 328 k/uL (150-450); RBC 1.52 m/uL (4.30-5.90); RDW 19.7 % (11.5-15.5); WBC 6.8 k/uL (3.8-10.6)
[2018-07-14 13:43] LABS: HGB 5.6 gm/dL (13.0-17.5)
--- NOTE | 2018-07-14 13:45 | XR ---
EXAMINATION TYPE: XR chest 2V DATE OF EXAM: 07/14/2018 COMPARISON: NONE HISTORY: Chest pain TECHNIQUE: Frontal and lateral views of the chest are obtained. FINDINGS: There is no focal air space opacity. No evidence for pneumothorax. No pleural effusion. The cardiac silhouette size is within normal limits. The osseous structures are grossly intact. IMPRESSION: 1. No acute cardiopulmonary process.
--- NOTE | 2018-07-14 13:48 | CT ---
EXAMINATION TYPE: CT brain wo con DATE OF EXAM: 07/14/2018 COMPARISON: 04/16/2018 HISTORY: Supratherapeutic INR, history of past brain surgery CT DLP: 1224.[address] of the brain was performed. Again noted is a large area of encephalomalacia involving the left MCA territory and left occipital l obe with cystic dilatation of the left lateral ventricle. Remote craniotomy defect is noted extending from the left frontal view of the left parietal region. Shunt catheter is noted to enter via a left posterior parietal approach with its distal tip at the level of the septum pellucidum. Remote insult is noted at the right frontal parietal junction as well as the posterior right parietal occipital silvestre ction. No acute intracranial hemorrhage or new extra-axial collection seen. Overall no change relative to th e prior study. If symptoms persist consider MRI as clinically warranted. IMPRESSION: 1. No acute intracranial process is seen at this time. Stable examination.
[2018-07-14 13:49] LABS: ALT 19 U/L (21-72); AST 26 U/L (17-59); Albumin 2.2 g/dL (3.5-5.0); Alkaline Phosphatase 125 U/L (38-126); Anion Gap 12 mmol/L; Blood Urea Nitrogen 9 mg/dL (9-20); Calcium 7.7 mg/dL (8.4-10.2); Carbon Dioxide 16 mmol/L (22-30); Chloride 105 mmol/L (98-107); Glucose 136 mg/dL (74-99); Potassium 4.2 mmol/L (3.5-5.1); Sodium 133 mmol/L (137-145); Total Bilirubin 0.9 mg/dL (0.2-1.3); Total Protein 4.5 g/dL (6.3-8.2)
--- NOTE | 2018-07-14 13:57 | CT ---
EXAMINATION TYPE: CT abdomen pelvis w con DATE OF EXAM: 07/14/2018 COMPARISON: 02/13/2017 HISTORY: Pain in left lower pelvis area CT DLP: 759.4 mGycm CONTRAST: CT scan of the abdomen and pelvis is performed without Oral Contrast and with IV Contrast, patient in jected with 100 mL of Isovue 300. FINDINGS: LUNG BASES-: No visible nodule. No infiltrate. LIVER/GB: Cholecystectomy clips are identified. No space occupying hepatic lesion. Biliary tree is of normal caliber. PANCREAS: No inflammation. No distinct mass. SPLEEN: No splenic enlargement. No lesion seen. ADRENALS: No nodule. No thickening. KIDNEYS/BLADDER: No hydronephrosis. No nephrolithiasis. No distinct renal mass. Urinary bladder g rossly unremarkable. BOWEL: Normal appendix. Normal bowel caliber. No inflammation. GENITAL ORGANS: No gross abnormality. LYMPH NODES: No greater than 1cm abdominal or pelvic lymph nodes are appreciated. AORTA: No significant abnormality. OSSEOUS STRUCTURES: No significant abnormality is seen. OTHER: Posterior right upper thigh edema may reflect posttraumatic change. Correlate clinically. No c ollections identified. No displaced fracture seen within the [id number]. Ventriculoperitoneal shun t catheter is noted to be in place. IMPRESSION: 1. Posterior right upper thigh edema may reflect posttraumatic change. Correlate clinically. 2. No acute intracranial process identified at this time.
[2018-07-14 14:00] LABS: Creatine Kinase 106 U/L (55-170)
[2018-07-14 14:12] LABS: Creatine Kinase MB 1.1 ng/mL (0.0-2.4); Troponin I <0.012 ng/mL (0.000-0.034)
[2018-07-14 14:30] LABS: Partial Thromboplastin Time 57.5 sec (22.0-30.0); Prothrombin Time 64.2 sec (9.0-12.0)
[2018-07-14] MEDS ORDERED: Kcentra PER PHARMACY 1 EACH MISC MISCELLANE PRN (15:11)
[2018-07-14] MEDS ORDERED: NALOXONE 0.4 MG/ML 1 ML VIAL IV PRN (15:13)
[2018-07-14] MEDS ORDERED: PHYTONADIONE 10 MG in SODIUM CHLORIDE 0.9% 50 ML IVPB STA (15:27)
[2018-07-14] MEDS ORDERED: HUMAN PROTHROMBIN COMPLX IV ONE (15:30)
[2018-07-14] MEDS ORDERED: THIAMINE 100 MG/ML 2 ML VIAL IM STA (15:42)
[2018-07-14] MEDS ORDERED: LORazepam 2 MG/ML INJ IV PRN ×3 (15:42)
[2018-07-14] MEDS ORDERED: levETIRAcetam 500 MG TAB PO STA (17:30)
[2018-07-14] MEDS: SODIUM CHLORIDE 0.9% 1,000 ML IV SCH (19:05)
[2018-07-14] MEDS: GABAPENTIN 300 MG CAP PO SCH (19:56)
[2018-07-14] MEDS: PANTOPRAZOLE 40 MG TABLET PO SCH (20:07)
[2018-07-14] MEDS: THIAMINE 100 MG TAB PO SCH (20:07)
[2018-07-14] MEDS: TEMAZEPAM 30 MG CAP PO PRN (20:07)
[2018-07-14] MEDS: oxyCODONE-APAP 10-325MG 1 EACH TAB PO PRN (20:08)
[2018-07-14] MEDS: LACOSAMIDE 50 MG TABLET PO SCH (20:21)
[2018-07-14 20:55] LABS: Anisocytosis Marked; Basophils % (A) 0 %; Eosinophils # (A) 0.1 k/uL (0-0.7); Eosinophils % (A) 1 %; Hypochromasia Slight; Lymphocytes # (A) 1.6 k/uL (1.0-4.8); Lymphocytes % (A) 22 %; MCH 36.1 pg (25.0-35.0); MCHC 33.3 g/dL (31.0-37.0); Macrocytosis Marked; Mean Platelet Volume 8.2; Monocytes # (A) 0.7 k/uL (0-1.0); Monocytes % (A) 10 %; Neutrophils # (A) 4.7 k/uL (1.3-7.7); Neutrophils % (A) 64 %; Platelet Count 236 k/uL (150-450); Poikilocytosis Moderate; RBC 1.71 m/uL (4.30-5.90); WBC 7.3 k/uL (3.8-10.6)
[2018-07-14 20:57] LABS: HCT 18.5 % (39.0-53.0); HGB 6.2 gm/dL (13.0-17.5)
[2018-07-14 20:58] LABS: MCV 108.3 fL (80.0-100.0)
[2018-07-15] MEDS: oxyCODONE-APAP 10-325MG 1 EACH TAB PO PRN ×4 (03:04→22:52)
[2018-07-15] MEDS: PANTOPRAZOLE 40 MG TABLET PO SCH ×2 (06:39→16:02)
[2018-07-15] MEDS: LACOSAMIDE 50 MG TABLET PO SCH ×2 (06:39→17:37)
[2018-07-15 06:57] LABS: Anisocytosis Marked; Basophils % (A) 0 %; Eosinophils # (A) 0.1 k/uL (0-0.7); Eosinophils % (A) 1 %; HCT 20.2 % (39.0-53.0); Hypochromasia Moderate; Lymphocytes # (A) 1.6 k/uL (1.0-4.8); Lymphocytes % (A) 26 %; MCH 33.7 pg (25.0-35.0); MCHC 32.1 g/dL (31.0-37.0); Macrocytosis Marked; Mean Platelet Volume 7.4; Monocytes # (A) 0.5 k/uL (0-1.0); Monocytes % (A) 9 %; Neutrophils # (A) 3.7 k/uL (1.3-7.7); Neutrophils % (A) 61 %; Platelet Count 213 k/uL (150-450); Poikilocytosis Moderate; RBC 1.92 m/uL (4.30-5.90)
[2018-07-15 07:00] LABS: INR 1.1 (<1.2); Prothrombin Time 10.4 sec (9.0-12.0)
[2018-07-15 07:02] LABS: HGB 6.5 gm/dL (13.0-17.5); RDW 25.6 % (11.5-15.5)
[2018-07-15] MEDS: GABAPENTIN 300 MG CAP PO SCH ×3 (09:44→20:43)
[2018-07-15] MEDS ORDERED: levETIRAcetam 500 MG TAB PO STA (09:57)
[2018-07-15] MEDS: THIAMINE 100 MG TAB PO SCH ×2 (11:51→16:02)
[2018-07-15] MEDS: SODIUM CHLORIDE 0.9% 1,000 ML IV SCH ×2 (11:51→17:39)
--- NOTE | 2018-07-15 12:34 | P.HPIM ---
History of Present Illness H&P Date: 07/15/18 Raffi Moya is a 48-year-old male who presented to the office with a chief complaint of generalized weakness , patient was evaluated in our office he had evidence of INR of more than 8 he was sent immediately to [facility] emergency room. He was evaluated in the emergency room by Dr. Guerra, hemoglobin was down to 5.6 INR was 7.5 patient was given vitamin K and 1 unit of red blood cells and was admitted to medical floor for further evaluation. Patient is unable to give any significant history , his old chart was reviewed , he has known history of stroke and had a previous history of brain shunt placement , patient is legally blind in his right eye and has residual right sided weakness in the upper and lower extremities since his stroke . Patient also has known history of protein C deficiency from chart review he also had history of patent foramen ovale with [id number] shunt and is maintained on Coumadin he had previous admissions with supra therapeutic INR he also has previous history of seizure disorder maintained on Keppra and Vimpat he also has known history of hypertension and ADHD . Patient was seen and examined on 07/15/2018 he is alert responsive in no apparent distress he is answering questions appropriately but then able to give much information he denies any fever or chills denies any chest pain or shortness of breath no cough no nausea or vomiting no abdominal pain no diarrhea or constipation he denies any blood in his urine or stools no burning was urination no frequency or urgency Past Medical History Past Medical History: COPD, CVA/TIA, Eye Disorder, GERD/Reflux, Hyperlipidemia, Hypertension, Memory Impairment, Seizure Disorder Additional Past Medical History / Comment(s): wants flu vaccine this admit. other hx:LAST SEIZURE . HX BLOOD IN STOOL, 2011 lt SIDED WEAKNESS R/T CVA, 2014 stroke affecting rt side; does not feel anything on the right side stated pt able to lift rt arm but unabel to poke in, right leg and arm very weaker - much weaker than the left side;has brain shunt-tied, legally blind wearing patch over rt eye, pain in left shoulder from previous surgery in 2013, uti=e-coli 2015,pancareatitis,hx of PFO and IS on coumadin. hx anemia has had falls.PER -WHEN PT IN [employer] he got hepatits from the [employer] noe and was treated. History of Any Multi-Drug Resistant Organisms: None Reported Past Surgical History: Cholecystectomy, Orthopedic Surgery Additional Past Surgical History / Comment(s): LEFT SHOULDER RECENT SX, LIBRA KNEE , RT ARM, STATES HAD A " 1979' BAD STAPH INFECTION YEARS AGO IN ONE KNEE",no mrsa to wifes knowlege, vp information technology shunt- "hemicraniotomy."bone removed and replaced in his skull at [facility]". Past Anesthesia/Blood Transfusion Reactions: No Reported Reaction Smoking Status: Former smoker - Past Family History Father History Unknown: Yes Additional Family Medical History / Comment(s): Pt is adopted Medications and Allergies Home Medications Medication Instructions Recorded Confirmed Type oxyCODONE-APAP 10-325MG [Percocet 1 tab PO Q6H 04/16/15 07/14/18 History 10-325 mg] ALPRAZolam [Xanax] 0.25 mg PO Q6HR PRN 11/24/15 07/14/18 History Acetaminophen Tab [Tylenol] 500 mg PO Q6H PRN 11/24/15 07/14/18 History Diltiazem Cd [Cardizem CD] 120 mg PO DAILY@0600 11/24/15 07/14/18 History Metoprolol Tartrate [Lopressor] 50 mg PO BID@0600,1800 11/24/15 07/14/18 History Pravastatin Sodium [Pravachol] 40 mg PO DAILY 11/24/15 07/14/18 History Temazepam [Restoril] 30 mg PO HS 11/24/15 07/14/18 History guaiFENesin SYRUP 100MG/5ML 200 mg PO Q6HR PRN 11/24/15 07/14/18 History [Robitussin] Ferrous Sulfate [Iron (65 MG 325 mg PO BID@0600,1800 12/16/15 07/14/18 History Elemental)] Gabapentin [Neurontin] 600 mg PO TID 11/16/16 07/14/18 History Dextroamphetamine/Amphetamine 10 mg PO BID@0600,1200 02/13/17 07/14/18 History [Adderall] Docusate [Colace] 100 mg PO DAILY PRN 02/13/17 07/14/18 History Lisinopril [Zestril] 2.5 mg PO DAILY@0600 02/13/17 07/14/18 History Pantoprazole [Protonix] 40 mg PO DAILY@0600 02/13/17 07/14/18 History Lacosamide [Vimpat] 100 mg PO BID@0600,1800 02/22/18 07/14/18 History levETIRAcetam [Keppra] 1,500 mg PO BID@0500,1700 02/22/18 07/14/18 History Warfarin Sodium 5 mg PO HS 07/14/18 07/14/18 History Allergies Allergy/AdvReac Type Severity Reaction Status Date / Time codeine AdvReac Nausea & Verified 07/14/18 13:07 Vomiting Physical Exam Vitals: Vital Signs Temp Pulse Pulse Resp BP BP Pulse Ox 07/15/18 11:54 98.1 F 80 18 96/62 97 07/15/18 08:00 97.9 F 75 16 107/72 95 07/15/18 04:00 98.0 F 75 16 112/61 99 07/15/18 00:50 98.7 F 78 18 97/62 95 07/14/18 23:42 98.3 F 75 16 90/59 93 L 07/14/18 23:12 98.2 F 81 16 86/55 07/14/18 23:02 98.5 F 84 16 90/51 97 07/14/18 20:00 98.0 F 82 16 101/63 99 07/14/18 18:45 98.2 F 77 18 106/66 97 07/14/18 17:55 97.2 F L 75 18 97/71 100 07/14/18 17:15 90/66 07/14/18 17:10 89 18 90/66 07/14/18 17:05 84 18 90/66 100 07/14/18 17:00 86 12 87/66 100 07/14/18 16:55 83 12 87/66 100 07/14/18 16:50 81 13 87/66 100 07/14/18 16:45 81 10 L 91/70 100 07/14/18 16:40 98.4 F 84 18 88/67 100 07/14/18 16:35 82 12 91/70 07/14/18 16:30 83 11 L 92/67 07/14/18 16:25 85 11 L 92/67 10/19/18 16:20 84 18 92/67 07/14/18 16:18 84 16 92/67 98 18 16:15 87 13 99/72 18 16:10 87 22 99/72 18 16:05 83 10 L 99/72 100 18 16:00 86 9 L 88/61 100 18 15:55 85 11 L 100 18 15:54 98.1 F 85 18 99/72 18 15:50 72 88/61 100 18 15:45 88/61 100 18 15:44 97.5 F L 83 20 88/61 18 15:30 101/71 18 15:25 80 9 L 101/71 100 18 15:20 80 12 101/71 100 18 15:15 79 10 L 101/71 100 18 15:10 81 9 L 101/71 100 18 15:05 80 12 101/71 100 18 15:00 80 11 L 105/75 100 18 14:55 77 15 105/75 98 07/14/18 14:50 78 16 105/75 97 07/14/18 14:45 78 13 105/75 100 18 14:40 77 18 105/75 97 07/14/18 14:35 77 15 105/75 99 18 14:30 79 18 104/74 100 18 14:25 84 17 104/74 99 18 14:20 79 18 104/74 99 18 14:15 76 11 L 104/74 100 18 14:10 75 11 L 104/74 100 18 14:05 75 11 L 104/74 100 18 14:00 77 11 L 107/74 100 07/14/18 13:55 81 18 107/74 100 18 13:50 77 14 107/74 100 07/14/18 13:45 75 18 107/74 100 18 13:40 77 18 99 18 13:30 98/71 10/19/18 13:25 98/71 10/19/18 13:20 07/14/18 13:15 07/14/18 13:10 07/14/18 13:00 81 18 07/14/18 12:50 76 12 98 07/14/18 12:46 18 100 Intake and Output 07/14/18 07/15/18 07/15/18 22:59 06:59 14:59 Intake Total 310 910 75 Balance 310 910 75 Intake: Intake, IV Titration 600 75 Amount Sodium Chloride 0.9% 1, 600 75 000 ml @ 75 mls/hr IV . [id number] [facility] Rx#:[id number] Blood Product 310 310 Rc As-3 Unit 310 [id number] Rc As-3 Unit 310 [id number] Other: Voiding Method Toilet Toilet Toilet # Voids 1 2 Weight 68.039 kg In general patient is alert responsive in no apparent distress HEENT head normocephalic and atraumatic Neck is supple no JVD no goiter no lymphadenopathy Chest exam reveals a few scattered crackles no wheezing Cardiac exam reveals regular heart sounds S1 and S2 no gallops no murmurs Abdomen is soft nontender no organomegaly with normal bowel sounds Extremity exam reveals no edema no cyanosis or clubbing Neurological examination reveals right sided weakness which is chronic Results CBC & Chem 7: 07/15/18 06:05 07/14/18 13:09 Labs: Abnormal Lab Results - Last 24 Hours (Table) 07/14/18 07/14/18 07/14/18 Range/Units 13:09 13:09 13:09 RBC 1.52 L (4.30-5.90) m/uL Hgb 5.6 L* (13.0-17.5) gm/dL Hct 19.0 L* (39.0-53.0) % MCV 124.9 H (80.0-100.0) fL MCH 36.8 H (25.0-35.0) pg MCHC 29.5 L (31.0-37.0) g/dL RDW 19.7 H (11.5-15.5) % PT 64.2 H (9.0-12.0) sec INR 7.0 H* (<1.2) APTT 57.5 H (22.0-30.0) sec Sodium 133 L (137-145) mmol/L Carbon Dioxide 16 L (22-30) mmol/L Glucose 136 H (74-99) mg/dL Calcium 7.7 L (8.4-10.2) mg/dL ALT 19 L (21-72) U/L Total Protein 4.5 L (6.3-8.2) g/dL Albumin 2.2 L (3.5-5.0) g/dL Crossmatch 07/14/18 07/14/18 07/15/18 Range/Units 13:09 19:50 06:05 RBC 1.71 L 1.92 L (4.30-5.90) m/uL Hgb 6.2 L* 6.5 L* (13.0-17.5) gm/dL Hct 18.5 L* 20.2 L (39.0-53.0) % MCV 108.3 H D 105.0 H (80.0-100.0) fL MCH 36.1 H (25.0-35.0) pg MCHC (31.0-37.0) g/dL RDW 26.0 H 25.6 H (11.5-15.5) % PT (9.0-12.0) sec INR (<1.2) APTT (22.0-30.0) sec Sodium (137-145) mmol/L Carbon Dioxide (22-30) mmol/L Glucose (74-99) mg/dL Calcium (8.4-10.2) mg/dL ALT (21-72) U/L Total Protein (6.3-8.2) g/dL Albumin (3.5-5.0) g/dL Crossmatch See Detail Thrombosis Risk Factor Assmnt - Choose All That Apply Any of the Below Risk Factors Present?: Yes Each Factor Represents 1 point: Abnormal pulmonary function (COPD), Swollen legs (current) Other Risk Factors: Yes Thrombosis Risk Factor Assessment Total Risk Factor Score: 2 Thrombosis Risk Factor Assessment Level: Low Risk Assessment and Plan Plan: #1 supratherapeutic INR patient given vitamin K in the emergency room INR is 1 today #2 severe anemia hemoglobin down to 5.6 on presentation likely related to subacute blood loss gastroenterology consultation was requested #3 previous history of stroke with right sided weakness patient has known history of large bilateral stroke with midline shift status post hemicraniotomy in March 2015 and [employer]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 #4 known history of protein C deficiency and patent tillman ovale with previous stroke #5 underlying history of seizure disorder maintained on Vimpat and Keppra medications reordered #6 previous history of alcohol abuse patient denies any recent alcohol intake #7 underlying history of hypertension #8 underlying history of hyperlipidemia At this time patient is stable his INR is down to 1 he will be started on Lovenox 60 mg subcu twice daily until his INR is back in the therapeutic range will restart Coumadin at 5 mg today Hemoglobin today is up to 6.5 after 2 units of red blood cell transfusions Gastroenterology consultation requested, patient was started on Protonix 40 mg by mouth twice a day Recheck labs in a.m.
[2018-07-15] MEDS ORDERED: WARFARIN 5 MG TAB PO ONE (18:00)
[2018-07-15] MEDS: ENOXAPARIN 60 MG/0.6 ML SYRINGE SQ SCH (20:43)
[2018-07-15] MEDS: TEMAZEPAM 30 MG CAP PO PRN (20:51)
[2018-07-16] MEDS: oxyCODONE-APAP 10-325MG 1 EACH TAB PO PRN ×3 (05:50→18:56)
[2018-07-16] MEDS: LACOSAMIDE 50 MG TABLET PO SCH ×2 (05:50→17:50)
[2018-07-16] MEDS: PANTOPRAZOLE 40 MG TABLET PO SCH ×2 (05:50→18:02)
[2018-07-16] MEDS: GABAPENTIN 300 MG CAP PO SCH ×3 (08:02→21:05)
[2018-07-16] MEDS: ENOXAPARIN 60 MG/0.6 ML SYRINGE SQ SCH ×2 (08:02→21:05)
--- NOTE | 2018-07-16 10:17 | P.PN ---
Subjective Progress Note Date: 07/16/18 Raffi Moya is a 48-year-old male who presented to the office with a chief complaint of generalized weakness , patient was evaluated in our office he had evidence of INR of more than 8 he was sent immediately to [facility] emergency room. He was evaluated in the emergency room by Dr. Guerra, hemoglobin was down to 5.6 INR was 7.5 patient was given vitamin K and 1 unit of red blood cells and was admitted to medical floor for further evaluation. Patient is unable to give any significant history , his old chart was reviewed , he has known history of stroke and had a previous history of brain shunt placement , patient is legally blind in his right eye and has residual right sided weakness in the upper and lower extremities since his stroke . Patient also has known history of protein C deficiency from chart review he also had history of patent foramen ovale with [id number] shunt and is maintained on Coumadin he had previous admissions with supra therapeutic INR he also has previous history of seizure disorder maintained on Keppra and Vimpat he also has known history of hypertension and ADHD . Patient was seen and examined on 07/15/2018 he is alert responsive in no apparent distress he is answering questions appropriately but then able to give much information he denies any fever or chills denies any chest pain or shortness of breath no cough no nausea or vomiting no abdominal pain no diarrhea or constipation he denies any blood in his urine or stools no burning was urination no frequency or urgency On 07/16/2018 patient was seen and examined on the telemetry floor, he is alert responsive in no apparent distress, he denies any fever or chills no headache or dizziness no chest pain no shortness of breath no cough no nausea or vomiting no abdominal pain and no urinary symptoms, labs are still pending for today, hemoglobin yesterday 6.5 INR yesterday 1.1 Objective - Vital Signs Vital signs: Vital Signs Temp 97.9 F 07/16/18 08:00 Pulse 101 H 07/16/18 08:00 Resp 18 07/16/18 08:00 BP 125/84 07/16/18 08:00 Pulse Ox 99 07/16/18 08:00 Intake & Output 07/15/18 07/16/18 07/16/18 18:59 06:59 18:59 Intake Total 980 600 315 Balance 980 600 315 Weight 68.039 kg Intake: Intake, IV Titration 500 600 75 Amount Sodium Chloride 0.9% 1, 500 600 75 000 ml @ 75 mls/hr IV . [id number] [facility] Rx#:[id number] Oral 480 240 Other: Voiding Method Toilet Toilet Toilet # Voids 2 1 - Exam In general patient is alert responsive in no apparent distress HEENT head normocephalic and atraumatic Neck is supple no JVD no goiter no lymphadenopathy Chest exam reveals a few scattered crackles no wheezing Cardiac exam reveals regular heart sounds S1 and S2 no gallops no murmurs Abdomen is soft nontender no organomegaly with normal bowel sounds Extremity exam reveals no edema no cyanosis or clubbing Neurological examination reveals right sided weakness which is chronic - Labs CBC & Chem 7: 07/15/18 06:05 07/14/18 13:09 Assessment and Plan Plan: #1 supratherapeutic INR patient given vitamin K in the emergency room INR is 1 today #2 severe anemia hemoglobin down to 5.6 on presentation likely related to subacute blood loss gastroenterology consultation was requested #3 previous history of stroke with right sided weakness patient has known history of large bilateral stroke with midline shift status post hemicraniotomy in March 2015 and 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[employer]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 in August 2015 #4 known history of protein C deficiency and patent tillman ovale with previous stroke #5 underlying history of seizure disorder maintained on Vimpat and Keppra medications reordered #6 previous history of alcohol abuse patient denies any recent alcohol intake #7 underlying history of hypertension #8 underlying history of hyperlipidemia At this time patient is stable his INR is down to 1 he will be started on Lovenox 60 mg subcu twice daily until his INR is back in the therapeutic range will restart Coumadin at 5 mg today Hemoglobin today is up to 6.5 after 2 units of red blood cell transfusions Gastroenterology consultation requested, patient was started on Protonix 40 mg by mouth twice a day Recheck labs in a.m.
[2018-07-16] MEDS: SODIUM CHLORIDE 0.9% 1,000 ML IV SCH ×2 (11:10→21:06)
[2018-07-16] MEDS: THIAMINE 100 MG TAB PO SCH ×2 (11:10→17:51)
[2018-07-16] MEDS ORDERED: LIDOCAINE VISCOUS 2% 15 ML CUP MUCOUS MEM ONE (12:53)
[2018-07-16] MEDS ORDERED: LIDOCAINE VISCOUS 2% 15 ML CUP MUCOUS MEM PRN (13:09)
[2018-07-16 14:53] LABS: Anisocytosis Marked; Basophils % (A) 0 %; Eosinophils # (A) 0.2 k/uL (0-0.7); Eosinophils % (A) 3 %; HCT 21.5 % (39.0-53.0); Hypochromasia Slight; Lymphocytes # (A) 1.3 k/uL (1.0-4.8); Lymphocytes % (A) 16 %; MCH 34.2 pg (25.0-35.0); MCHC 32.3 g/dL (31.0-37.0); MCV 105.8 fL (80.0-100.0); Macrocytosis Marked; Mean Platelet Volume 8.1; Monocytes # (A) 0.6 k/uL (0-1.0); Monocytes % (A) 7 %; Neutrophils # (A) 5.5 k/uL (1.3-7.7); Neutrophils % (A) 72 %; Platelet Count 214 k/uL (150-450); Poikilocytosis Moderate; RBC 2.03 m/uL (4.30-5.90); WBC 7.6 k/uL (3.8-10.6)
[2018-07-16 14:55] LABS: RDW 25.4 % (11.5-15.5)
[2018-07-16 14:57] LABS: HGB 6.9 gm/dL (13.0-17.5)
[2018-07-16 15:03] LABS: Anisocytosis (M) Present; Polychromasia Present; Spherocytes Present
[2018-07-16 15:04] LABS: Mixed Population RBC Present
[2018-07-16 15:24] LABS: ALT 28 U/L (21-72); AST 23 U/L (17-59); Albumin 1.9 g/dL (3.5-5.0); Alkaline Phosphatase 93 U/L (38-126); Anion Gap 6 mmol/L; Blood Urea Nitrogen 6 mg/dL (9-20); Calcium 7.4 mg/dL (8.4-10.2); Carbon Dioxide 19 mmol/L (22-30); Chloride 109 mmol/L (98-107); Glucose 171 mg/dL (74-99); Potassium 3.9 mmol/L (3.5-5.1); Sodium 134 mmol/L (137-145); Total Bilirubin 0.9 mg/dL (0.2-1.3); Total Protein 4.1 g/dL (6.3-8.2)
[2018-07-16 15:44] LABS: INR 1.2 (<1.2); Prothrombin Time 11.5 sec (9.0-12.0)
[2018-07-16] MEDS ORDERED: WARFARIN 5 MG TAB PO ONE (18:00)
[2018-07-16] MEDS: TEMAZEPAM 30 MG CAP PO PRN (21:06)
--- NOTE | 2018-07-17 03:25 | P.CONS ---
History of Present Illness - Reason for Consult Consult date: 07/15/18 Anemia Requesting physician: Cayetano Galloway - Chief Complaint Weakness - History of Present Illness The patient is a pleasant 48-year-old male with multiple medical comorbidities including protein C deficiency, prior CVA with residual deficits, COPD, hypertension, dyslipidemia, GERD, and prior cranial shunt placement who presents to the hospital after being seen in the outpatient setting for weakness and being found to have an elevated INR and anemia. The patient has had similar presentation in 2014 at which time he had both an EGD and colonoscopy performed which were significant for gastritis and a hiatal hernia and esophagitis on the upper endoscopy and hemorrhoids and diverticular disease on the lower endoscopy. History has been taken conversation with the patient, the nursing staff and the primary team and there were no reports of GI bleeding with no melena, hematochezia, nausea or vomiting reported. The patient was found to have an elevation of his INR of 7 on presentation which was corrected to 1.1 after administration of vitamin K. The patient's hemoglobin increased to 6.5 from 5.6 on presentation after administration of upper blood cells. No bowel movement on the day of presentation. There was a CT scan of the abdomen done which showed posterior upper right thigh edema which corresponded to a large hematoma in this area. The patient had a stool sample for occult blood which was found to be negative. Review of Systems Constitutional: Denies any fatigue, change in weight Eyes: Denies any change in vision, pain denies Nose: Denies any congestion, rhinorrhea Ears: Denies any change in hearing, new onset tinnitus Lungs: Denies any wheezing, shortness of breath, cough, or hemoptysis Cardiac: Denies any pain in chest, shortness of breath, lower extremity swelling Abdomen: As per history of present illness Skin: Denies any new rashes or pruritus Urine: Denies any dysuria or hematuria Neuro: Denies any change in mental status, new focal deficits, with stable deficits from prior CVA Past Medical History Past Medical History: COPD, CVA/TIA, Eye Disorder, GERD/Reflux, Hyperlipidemia, Hypertension, Memory Impairment, Seizure Disorder Additional Past Medical History / Comment(s): wants flu vaccine this admit. other hx:LAST SEIZURE . 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 hx anemia has had falls.[employer] -WHEN [employer] [place] [employer] he got hepatits from the [employer] and was treated. 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 Past Anesthesia/Blood Transfusion Reactions: No Reported Reaction Smoking Status: Former smoker - Past Family History Father History Unknown: Yes Additional Family Medical History / Comment(s): Pt is adopted Medications and Allergies Home Medications Medication Instructions Recorded Confirmed Type oxyCODONE-APAP 10-325MG [Percocet 1 tab PO Q6H 04/16/15 07/14/18 History 10-325 mg] ALPRAZolam [Xanax] 0.25 mg PO Q6HR PRN 11/24/15 07/14/18 History Acetaminophen Tab [Tylenol] 500 mg PO Q6H PRN 11/24/15 07/14/18 History Diltiazem Cd [Cardizem CD] 120 mg PO DAILY@0600 11/24/15 07/14/18 History Metoprolol Tartrate [Lopressor] 50 mg PO BID@0600,1800 11/24/15 07/14/18 History Pravastatin Sodium [Pravachol] 40 mg PO DAILY 11/24/15 07/14/18 History Temazepam [Restoril] 30 mg PO HS 11/24/15 07/14/18 History guaiFENesin SYRUP 100MG/5ML 200 mg PO Q6HR PRN 11/24/15 07/14/18 History [Robitussin] Ferrous Sulfate [Iron (65 MG 325 mg PO BID@0600,1800 12/16/15 07/14/18 History Elemental)] Gabapentin [Neurontin] 600 mg PO TID 11/16/16 07/14/18 History Dextroamphetamine/Amphetamine 10 mg PO BID@0600,1200 02/13/17 07/14/18 History [Adderall] Docusate [Colace] 100 mg PO DAILY PRN 02/13/17 07/14/18 History Lisinopril [Zestril] 2.5 mg PO DAILY@0600 02/13/17 07/14/18 History Pantoprazole [Protonix] 40 mg PO DAILY@0600 02/13/17 07/14/18 History Lacosamide [Vimpat] 100 mg PO BID@0600,1800 02/22/18 07/14/18 History levETIRAcetam [Keppra] 1,500 mg PO BID@0500,1700 02/22/18 07/14/18 History Warfarin Sodium 5 mg PO HS 07/14/18 07/14/18 History Allergies Allergy/AdvReac Type Severity Reaction Status Date / Time codeine AdvReac Nausea & Verified 07/14/18 13:07 Vomiting Physical Exam Vitals: Vital Signs Temp Pulse Pulse Resp BP BP Pulse Ox 07/15/18 23:16 98.8 F 95 18 100/60 96 07/15/18 20:51 76 07/15/18 20:00 98.4 F 116 H 18 126/88 100 07/15/18 16:00 98 F 65 18 116/81 100 07/15/18 11:54 98.1 F 80 18 96/62 97 07/15/18 08:00 97.9 F 75 16 107/72 95 07/15/18 04:00 98.0 F 75 16 112/61 99 07/15/18 00:50 98.7 F 78 18 97/62 95 Intake and Output 07/15/18 07/15/18 07/16/18 14:59 22:59 06:59 Intake Total 555 425 600 Balance 555 425 600 Intake: Intake, IV Titration 75 425 600 Amount Sodium Chloride 0.9% 1, 75 425 600 000 ml @ 75 mls/hr IV . [id number] [facility] Rx#:[id number] Oral 480 Other: Voiding Method Toilet Toilet # Voids 2 Weight 68.039 kg Constitutional: Lying in bed in no apparent distress Head: normocephalic/atraumatic Eyes: No icterus, no injection Mouth: Moist mucous membranes Nose: No discharge noted Neck: Trachea midline Lungs: Normal air entry in all lung [place], no wheezing appreciated Abdomen: Soft, nontender, nondistended, normal bowel sounds. No guarding or rigidity Skin: No rashes, no jaundice, there is bruising on bilateral lower extremities with a large hematoma on the right upper lower extremity Neuro: Awake alert and oriented and interactive with expressive aphasia from prior CVA Results CBC & Chem 7: 07/16/18 14:40 07/16/18 14:40 Labs: Abnormal Lab Results - Last 24 Hours (Table) 07/14/18 07/15/18 Range/Units 13:09 06:05 RBC 1.92 L (4.30-5.90) m/uL Hgb 6.5 L* (13.0-17.5) gm/dL Hct 20.2 L (39.0-53.0) % MCV 105.0 H (80.0-100.0) fL RDW 25.6 H (11.5-15.5) % Crossmatch See Detail CT scan - abdomen: report reviewed (CT scan showing fatty edema in the posterior upper right side.) Assessment and Plan (1) Anemia Narrative/Plan: Patient presenting with a supratherapeutic INR and weakness and found to be anemic with a hemoglobin of 5.6. It is unclear if this is secondary to GI bleed as there are no signs or symptoms of GI bleeding reported and a negative stool for occult blood test. The patient also has a large hematoma on the right upper thigh. Acute anemia may be secondary to blood loss secondary to fall and hematoma. Current Visit: Yes Status: Acute Code(s): D64.9 - ANEMIA, UNSPECIFIED SNOMED Code(s): 610896973 (2) Supratherapeutic INR Current Visit: Yes Status: Acute Code(s): R79.1 - ABNORMAL COAGULATION PROFILE SNOMED Code(s): 150714980 Plan: Supportive care Okay for diet Monitor for signs and symptoms of GI bleed Stool testing for occult blood noted and negative Continue Protonix therapy empirically EGD and colonoscopy reports from 2014 reviewed, at that time the patient also presented for anemia and was found to have esophagitis, gastritis and a hiatal hernia on upper endoscopy and diverticulosis and hemorrhoids on lower endoscopy Continue to monitor hemoglobin and hematocrit and transfuse as needed We'll discuss the case with the patient's and any concern for GI bleeding arises we'll plan for endoscopic evaluation Thank you for allowing us to participate in the care of the patient we will continue to follow
[2018-07-17] MEDS: LACOSAMIDE 50 MG TABLET PO SCH ×2 (05:32→17:45)
[2018-07-17] MEDS: oxyCODONE-APAP 10-325MG 1 EACH TAB PO PRN ×3 (05:54→17:41)
[2018-07-17] MEDS: GABAPENTIN 300 MG CAP PO SCH ×3 (09:13→21:43)
[2018-07-17] MEDS: PANTOPRAZOLE 40 MG TABLET PO SCH ×2 (09:14→17:42)
[2018-07-17] MEDS: ENOXAPARIN 60 MG/0.6 ML SYRINGE SQ SCH (09:14)
[2018-07-17] MEDS: SODIUM CHLORIDE 0.9% 1,000 ML IV SCH (09:15)
--- NOTE | 2018-07-17 12:01 | P.PN ---
Subjective Progress Note Date: 07/17/18 Raffi Moya is a 48-year-old male who presented to the office with a chief complaint of generalized weakness , patient was evaluated in our office he had evidence of INR of more than 8 he was sent immediately to [facility] emergency room. He was evaluated in the emergency room by Dr. Guerra, hemoglobin was down to 5.6 INR was 7.5 patient was given vitamin K and 1 unit of red blood cells and was admitted to medical floor for further evaluation. Patient is unable to give any significant history , his old chart was reviewed , he has known history of stroke and had a previous history of brain shunt placement , patient is legally blind in his right eye and has residual right sided weakness in the upper and lower extremities since his stroke . Patient also has known history of protein C deficiency from chart review he also had history of patent foramen ovale with [id number] shunt and is maintained on Coumadin he had previous admissions with supra therapeutic INR he also has previous history of seizure disorder maintained on Keppra and Vimpat he also has known history of hypertension and ADHD . Patient was seen and examined on 07/15/2018 he is alert responsive in no apparent distress he is answering questions appropriately but then able to give much information he denies any fever or chills denies any chest pain or shortness of breath no cough no nausea or vomiting no abdominal pain no diarrhea or constipation he denies any blood in his urine or stools no burning was urination no frequency or urgency On 07/16/2018 patient was seen and examined on the telemetry floor, he is alert responsive in no apparent distress, he denies any fever or chills no headache or dizziness no chest pain no shortness of breath no cough no nausea or vomiting no abdominal pain and no urinary symptoms, labs are still pending for today, hemoglobin yesterday 6.5 INR yesterday 1.1 On 07/17/2018 patient is seen and examined. Patient is alert and oriented. Patient's hemoglobin yesterday 6.9. Patient did receive 5 mg of Coumadin yesterday. Labs pending today. This time patient denies chest pain or shortness of breath. Patient denies nausea vomiting or diarrhea. Patient denies any urinary burning or frequency. Objective - Vital Signs Vital signs: Vital Signs Temp 98.2 F 07/17/18 07:21 Pulse 84 07/17/18 07:21 Resp 18 07/17/18 07:21 BP 129/74 07/17/18 07:21 Pulse Ox 96 07/17/18 07:21 Intake & Output 07/16/18 07/17/18 07/17/18 18:59 06:59 18:59 Intake Total 740 680 400 Output Total 300 Balance 740 380 400 Intake: Intake, IV Titration 500 0 Amount Sodium Chloride 0.9% 1, 500 0 000 ml @ 75 mls/hr IV . [id number] [facility] Rx#:[id number] Oral 240 680 400 Output: Urine 300 Other: Voiding Method Toilet Toilet Toilet # Voids 1 2 - Exam In general patient is alert responsive in no apparent distress HEENT head normocephalic and atraumatic Neck is supple no JVD no goiter no lymphadenopathy Chest exam reveals a few scattered crackles no wheezing Cardiac exam reveals regular heart sounds S1 and S2 no gallops no murmurs Abdomen is soft nontender no organomegaly with normal bowel sounds Extremity exam reveals no edema no cyanosis or clubbing Neurological examination reveals right sided weakness which is chronic - Labs CBC & Chem 7: 07/16/18 14:40 07/16/18 14:40 Labs: Abnormal Lab Results - Last 24 Hours (Table) 07/16/18 07/16/18 07/16/18 Range/Units 14:40 14:40 15:29 RBC 2.03 L (4.30-5.90) m/uL Hgb 6.9 L* (13.0-17.5) gm/dL Hct 21.5 L (39.0-53.0) % MCV 105.8 H (80.0-100.0) fL RDW 25.4 H (11.5-15.5) % INR 1.2 H (<1.2) Sodium 134 L (137-145) mmol/L Chloride 109 H (98-107) mmol/L Carbon Dioxide 19 L (22-30) mmol/L BUN 6 L (9-20) mg/dL Creatinine 0.51 L (0.66-1.25) mg/dL Glucose 171 H (74-99) mg/dL Calcium 7.4 L (8.4-10.2) mg/dL Total Protein 4.1 L (6.3-8.2) g/dL Albumin 1.9 L (3.5-5.0) g/dL Assessment and Plan Assessment: #1 supratherapeutic INR patient given vitamin K in the emergency room INR is 1 today. Patient received 5 mg Coumadin yesterday. INR pending #2 severe anemia hemoglobin down to 5.6 on presentation likely related to subacute blood loss gastroenterology consultation was requested. Per GI consult will continue to monitor hemoglobin and Hemotocrit and transfuse as needed. GI to discuss case with patient's and any concern for J bleeding arises plan for endoscopic evaluation. #3 previous history of stroke with right sided weakness patient has known history of large bilateral stroke with midline shift status post hemicraniotomy in March 2015 and [employer] shunt placement in August 2015 #4 known history of protein C deficiency and patent tillman ovale with previous stroke #5 underlying history of seizure disorder maintained on Vimpat and Keppra medications reordered #6 previous history of alcohol abuse patient denies any recent alcohol intake #7 underlying history of hypertension #8 underlying history of hyperlipidemia I performed an examination of the patient and discussed their management with the Nurse Practitioner. I have reviewed the Nurse Practitioner's notes and agree with the documented findings and plan of care
[2018-07-17 12:23] LABS: Anisocytosis Marked; Basophils % (A) 0 %; Eosinophils # (A) 0.1 k/uL (0-0.7); Eosinophils % (A) 1 %; HCT 20.9 % (39.0-53.0); HGB 6.4 gm/dL (13.0-17.5); Hypochromasia Marked; Lymphocytes # (A) 1.2 k/uL (1.0-4.8); Lymphocytes % (A) 20 %; MCH 34.5 pg (25.0-35.0); MCHC 30.8 g/dL (31.0-37.0); Macrocytosis Marked; Mean Platelet Volume 8.1; Monocytes # (A) 0.6 k/uL (0-1.0); Monocytes % (A) 9 %; Neutrophils # (A) 4.1 k/uL (1.3-7.7); Neutrophils % (A) 66 %; Platelet Count 224 k/uL (150-450); Poikilocytosis Slight; RBC 1.86 m/uL (4.30-5.90); RDW 24.6 % (11.5-15.5); WBC 6.1 k/uL (3.8-10.6)
[2018-07-17 12:24] LABS: ALT 21 U/L (21-72); AST 19 U/L (17-59); Albumin 1.8 g/dL (3.5-5.0); Alkaline Phosphatase 98 U/L (38-126); Anion Gap 7 mmol/L; Blood Urea Nitrogen 4 mg/dL (9-20); Calcium 7.4 mg/dL (8.4-10.2); Carbon Dioxide 21 mmol/L (22-30); Chloride 107 mmol/L (98-107); Glucose 101 mg/dL (74-99); MCV 111.9 fL (80.0-100.0); Potassium 3.9 mmol/L (3.5-5.1); Sodium 135 mmol/L (137-145); Total Bilirubin 1.1 mg/dL (0.2-1.3); Total Protein 4.1 g/dL (6.3-8.2)
[2018-07-17 13:19] LABS: INR 1.2 (<1.2); Prothrombin Time 11.4 sec (9.0-12.0)
[2018-07-17] MEDS: THIAMINE 100 MG TAB PO SCH ×2 (13:45→17:42)
[2018-07-17] MEDS ORDERED: ONDANSETRON 4 MG/2 ML VIAL IVP STA (17:34)
[2018-07-17] MEDS ORDERED: ONDANSETRON 4 MG/2 ML VIAL ONE (17:39)
[2018-07-17] MEDS ORDERED: WARFARIN 5 MG TAB PO ONE (18:00)
[2018-07-17] MEDS: TEMAZEPAM 30 MG CAP PO PRN (21:43)
[2018-07-17] MEDS: CLINDAMYCIN 150 MG CAP PO SCH (21:43)
--- NOTE | 2018-07-18 00:46 | P.PN ---
Subjective Progress Note Date: 07/17/18 Principal diagnosis: Supratherapeutic INR, anemia No signs or symptoms of GI bleeding. Tolerating diet. No abdominal pain. Objective - Vital Signs Vital signs: Vital Signs Temp 97.8 F 07/17/18 22:52 Pulse 89 07/17/18 19:25 Resp 17 07/17/18 22:52 BP 120/80 07/17/18 22:52 Pulse Ox 94 L 07/17/18 22:52 Intake & Output 07/17/18 07/17/18 07/18/18 06:59 18:59 06:59 Intake Total 680 1110 310 Output Total 300 Balance 380 1110 310 Intake: Intake, IV Titration 0 Amount Sodium Chloride 0.9% 1, 0 000 ml @ 75 mls/hr IV . [id number] [facility] Rx#:[id number] Oral 680 800 Blood Product 310 310 Rc As-1 Unit 0 310 [id number] Rc As-3 Unit 310 [id number] Output: Urine 300 Other: Voiding Method Toilet Toilet Toilet # Voids 2 2 # Bowel Movements 1 - Exam Constitutional: Lying in bed in no apparent distress Head: normocephalic/atraumatic Eyes: No icterus, no injection Mouth: Moist mucous membranes Nose: No discharge noted Neck: Trachea midline Lungs: Normal air entry in all lung truj[place], no wheezing appreciated Abdomen: Soft, nontender, nondistended, normal bowel sounds. No guarding or rigidity Skin: No rashes, no jaundice, there is bruising on bilateral lower extremities with a large hematoma on the right upper lower extremity Neuro: Awake alert and oriented and interactive with expressive aphasia from prior CVA - Labs CBC & Chem 7: 07/17/18 10:48 07/17/18 10:48 Labs: Abnormal Lab Results - Last 24 Hours (Table) 07/14/18 07/17/18 07/17/18 Range/Units 13:09 10:48 10:48 RBC 1.86 L (4.30-5.90) m/uL Hgb 6.4 L* (13.0-17.5) gm/dL Hct 20.9 L (39.0-53.0) % MCV 111.9 H D (80.0-100.0) fL MCHC 30.8 L (31.0-37.0) g/dL RDW 24.6 H (11.5-15.5) % INR 1.2 H (<1.2) Sodium (137-145) mmol/L Carbon Dioxide (22-30) mmol/L BUN (9-20) mg/dL Creatinine (0.66-1.25) mg/dL Glucose (74-99) mg/dL Calcium (8.4-10.2) mg/dL Total Protein (6.3-8.2) g/dL Albumin (3.5-5.0) g/dL Crossmatch See Detail 07/17/18 Range/Units 10:48 RBC (4.30-5.90) m/uL Hgb (13.0-17.5) gm/dL Hct (39.0-53.0) % MCV (80.0-100.0) fL MCHC (31.0-37.0) g/dL RDW (11.5-15.5) % INR (<1.2) Sodium 135 L (137-145) mmol/L Carbon Dioxide 21 L (22-30) mmol/L BUN 4 L (9-20) mg/dL Creatinine 0.50 L (0.66-1.25) mg/dL Glucose 101 H (74-99) mg/dL Calcium 7.4 L (8.4-10.2) mg/dL Total Protein 4.1 L (6.3-8.2) g/dL Albumin 1.8 L (3.5-5.0) g/dL Crossmatch Assessment and Plan (1) Anemia Narrative/Plan: Patient presenting with a supratherapeutic INR and weakness and found to be anemic with a hemoglobin of 5.6. It is unclear if this is secondary to GI bleed as there are no signs or symptoms of GI bleeding reported and a negative stool for occult blood test. The patient also has a large hematoma on the right upper thigh. Acute anemia may be secondary to blood loss secondary to fall and hematoma. Current Visit: Yes Status: Acute Code(s): D64.9 - ANEMIA, UNSPECIFIED SNOMED Code(s): 355821030 (2) Supratherapeutic INR Current Visit: Yes Status: Acute Code(s): R79.1 - ABNORMAL COAGULATION PROFILE SNOMED Code(s): 745086382 Plan: Supportive care Okay for diet Monitor for signs and symptoms of GI bleed Stool testing for occult blood noted and negative Continue Protonix therapy empirically EGD and colonoscopy reports from 2014 reviewed, at that time the patient also presented for anemia and was found to have esophagitis, gastritis and a hiatal hernia on upper endoscopy and diverticulosis and hemorrhoids on lower endoscopy Continue to monitor hemoglobin and hematocrit and transfuse as needed We'll discuss the case with the patient's and any concern for GI bleeding arises we'll plan for endoscopic evaluation Thank you for allowing us to participate in the care of the patient we will continue to follow
[2018-07-18] MEDS: SODIUM CHLORIDE 0.9% 1,000 ML IV SCH (01:28)
[2018-07-18] MEDS: oxyCODONE-APAP 10-325MG 1 EACH TAB PO PRN ×3 (06:40→18:03)
[2018-07-18] MEDS: LACOSAMIDE 50 MG TABLET PO SCH ×2 (06:40→18:03)
[2018-07-18 07:56] LABS: INR 1.3 (<1.2); Prothrombin Time 12.2 sec (9.0-12.0)
[2018-07-18 08:04] LABS: Anisocytosis Marked; Basophils % (A) 0 %; Eosinophils # (A) 0.1 k/uL (0-0.7); Eosinophils % (A) 2 %; HCT 26.2 % (39.0-53.0); Hypochromasia Moderate; Lymphocytes # (A) 1.1 k/uL (1.0-4.8); Lymphocytes % (A) 19 %; MCH 32.5 pg (25.0-35.0); MCHC 31.4 g/dL (31.0-37.0); Macrocytosis Marked; Mean Platelet Volume 7.6; Monocytes # (A) 0.5 k/uL (0-1.0); Monocytes % (A) 9 %; Neutrophils # (A) 3.9 k/uL (1.3-7.7); Neutrophils % (A) 68 %; Platelet Count 209 k/uL (150-450); Poikilocytosis Moderate; RBC 2.53 m/uL (4.30-5.90); WBC 5.7 k/uL (3.8-10.6)
[2018-07-18 08:08] LABS: HGB 8.2 gm/dL (13.0-17.5)
[2018-07-18 08:09] LABS: MCV 103.5 fL (80.0-100.0); RDW 25.9 % (11.5-15.5)
[2018-07-18 08:13] LABS: ALT 19 U/L (21-72); AST 17 U/L (17-59); Albumin 1.8 g/dL (3.5-5.0); Alkaline Phosphatase 94 U/L (38-126); Anion Gap 4 mmol/L; Blood Urea Nitrogen 3 mg/dL (9-20); Calcium 7.8 mg/dL (8.4-10.2); Carbon Dioxide 23 mmol/L (22-30); Chloride 109 mmol/L (98-107); Glucose 86 mg/dL (74-99); Potassium 3.6 mmol/L (3.5-5.1); Sodium 136 mmol/L (137-145); Total Bilirubin 1.3 mg/dL (0.2-1.3)
[2018-07-18] MEDS: ENOXAPARIN 40 MG/0.4 ML SYRINGE SQ SCH (08:37)
[2018-07-18] MEDS: PANTOPRAZOLE 40 MG TABLET PO SCH ×2 (08:38→16:28)
[2018-07-18] MEDS: CLINDAMYCIN 150 MG CAP PO SCH ×3 (08:38→20:32)
[2018-07-18] MEDS: GABAPENTIN 300 MG CAP PO SCH ×3 (08:38→20:36)
[2018-07-18 08:44] LABS: Polychromasia Present
--- NOTE | 2018-07-18 10:10 | P.PN ---
Subjective Progress Note Date: 07/18/18 Principal diagnosis: Supratherapeutic INR anemia No sign or symptoms of GI bleeding. Tolerating diet. Denies abdominal pain. Large hematoma to the right lower extremity. INR 1.3. Hemoglobin 8.2. Received 4 units of blood since admission. Objective - Vital Signs Vital signs: Vital Signs Temp 98.4 F 07/18/18 07:28 Pulse 89 07/17/18 19:25 Resp 16 07/18/18 08:00 BP 112/73 07/18/18 07:28 Pulse Ox 90 L 07/18/18 07:28 Intake & Output 07/17/18 07/18/18 07/18/18 18:59 06:59 18:59 Intake Total 1110 310 Balance 1110 310 Weight 82.5 kg Intake: Oral 800 Blood Product 310 310 Rc As-1 Unit 0 310 [id number] Rc As-3 Unit 310 [id number] Other: Voiding Method Toilet Toilet Toilet # Voids 2 2 # Bowel Movements 1 - Exam General appearance: The patient is alert, oriented, in no acute distress. HET: Head is normocephalic and atraumatic. Pupils are equal and reactive. Oropharynx is clear without lesions. Neck: Supple without lymphadenopathy. Trachea midline. Heart: S1 S2. Regular rate and rhythm. Lungs: No crackles or wheezes are heard. Abdomen: Soft, nontender, nondistended with bowel sounds. No peritoneal signs. No palpable organomegaly or masses. Extremities: Right lower extremity hematoma extending from side to ankle. Radial and pedal pulses are 2/4 bilaterally. Neurological: No focal deficits. Strength and sensation are grossly intact. - Labs CBC & Chem 7: 07/18/18 07:36 07/18/18 07:36 Labs: Abnormal Lab Results - Last 24 Hours (Table) 07/14/18 07/17/18 07/17/18 Range/Units 13:09 10:48 10:48 RBC 1.86 L (4.30-5.90) m/uL Hgb 6.4 L* (13.0-17.5) gm/dL Hct 20.9 L (39.0-53.0) % MCV 111.9 H D (80.0-100.0) fL MCHC 30.8 L (31.0-37.0) g/dL RDW 24.6 H (11.5-15.5) % PT (9.0-12.0) sec INR 1.2 H (<1.2) Sodium (137-145) mmol/L Chloride (98-107) mmol/L Carbon Dioxide (22-30) mmol/L BUN (9-20) mg/dL Creatinine (0.66-1.25) mg/dL Glucose (74-99) mg/dL Calcium (8.4-10.2) mg/dL ALT (21-72) U/L Total Protein (6.3-8.2) g/dL Albumin (3.5-5.0) g/dL Crossmatch See Detail 07/17/18 07/18/18 07/18/18 Range/Units 10:48 07:36 07:36 RBC 2.53 L (4.30-5.90) m/uL Hgb 8.2 L D (13.0-17.5) gm/dL Hct 26.2 L (39.0-53.0) % MCV 103.5 H D (80.0-100.0) fL MCHC (31.0-37.0) g/dL RDW 25.9 H (11.5-15.5) % PT 12.2 H (9.0-12.0) sec INR 1.3 H (<1.2) Sodium 135 L (137-145) mmol/L Chloride (98-107) mmol/L Carbon Dioxide 21 L (22-30) mmol/L BUN 4 L (9-20) mg/dL Creatinine 0.50 L (0.66-1.25) mg/dL Glucose 101 H (74-99) mg/dL Calcium 7.4 L (8.4-10.2) mg/dL ALT (21-72) U/L Total Protein 4.1 L (6.3-8.2) g/dL Albumin 1.8 L (3.5-5.0) g/dL Crossmatch 07/18/18 Range/Units 07:36 RBC (4.30-5.90) m/uL Hgb (13.0-17.5) gm/dL Hct (39.0-53.0) % MCV (80.0-100.0) fL MCHC (31.0-37.0) g/dL RDW (11.5-15.5) % PT (9.0-12.0) sec INR (<1.2) Sodium 136 L (137-145) mmol/L Chloride 109 H (98-107) mmol/L Carbon Dioxide (22-30) mmol/L BUN 3 L (9-20) mg/dL Creatinine 0.50 L (0.66-1.25) mg/dL Glucose (74-99) mg/dL Calcium 7.8 L (8.4-10.2) mg/dL ALT 19 L (21-72) U/L Total Protein 4.0 L (6.3-8.2) g/dL Albumin 1.8 L (3.5-5.0) g/dL Crossmatch Assessment and Plan (1) Anemia Narrative/Plan: Presently no signs or symptoms of GI bleeding negative FOBT. Large hematoma to the right lower extremity status post fall most likely acute blood loss anemia is secondary to right lower extremity hematoma. Current Visit: Yes Status: Acute Code(s): D64.9 - ANEMIA, UNSPECIFIED SNOMED Code(s): 046062337 (2) Supratherapeutic INR Narrative/Plan: Warfarin-induced coagulopathy history of protein C deficiency CVA patent foramen ovale Current Visit: Yes Status: Acute Code(s): R79.1 - ABNORMAL COAGULATION PROFILE SNOMED Code(s): 931703562 Plan: 1. Supportive care. Warfarin on hold. Diet as tolerated. Continue monitor CBC. EGD colonoscopy 2014 gastritis esophagitis diverticulosis hemorrhoids. No plans for inpatient endoscopic exams at this time unless clinical condition warrants. Assessment and plan a care discussed with Dr. Nash
--- NOTE | 2018-07-18 10:58 | P.PN ---
Subjective Progress Note Date: 07/18/18 Raffi Moya is a 48-year-old male who presented to the office with a chief complaint of generalized weakness , patient was evaluated in our office he had evidence of INR of more than 8 he was sent immediately to [facility] emergency room. He was evaluated in the emergency room by Dr. Guerra, hemoglobin was down to 5.6 INR was 7.5 patient was given vitamin K and 1 unit of red blood cells and was admitted to medical floor for further evaluation. Patient is unable to give any significant history , his old chart was reviewed , he has known history of stroke and had a previous history of brain shunt placement , patient is legally blind in his right eye and has residual right sided weakness in the upper and lower extremities since his stroke . Patient also has known history of protein C deficiency from chart review he also had history of patent foramen ovale with [id number] shunt and is maintained on Coumadin he had previous admissions with supra therapeutic INR he also has previous history of seizure disorder maintained on Keppra and Vimpat he also has known history of hypertension and ADHD . Patient was seen and examined on 07/15/2018 he is alert responsive in no apparent distress he is answering questions appropriately but then able to give much information he denies any fever or chills denies any chest pain or shortness of breath no cough no nausea or vomiting no abdominal pain no diarrhea or constipation he denies any blood in his urine or stools no burning was urination no frequency or urgency On 07/16/2018 patient was seen and examined on the telemetry floor, he is alert responsive in no apparent distress, he denies any fever or chills no headache or dizziness no chest pain no shortness of breath no cough no nausea or vomiting no abdominal pain and no urinary symptoms, labs are still pending for today, hemoglobin yesterday 6.5 INR yesterday 1.1 On 07/17/2018 patient is seen and examined. Patient is alert and oriented. Patient's hemoglobin yesterday 6.9. Patient did receive 5 mg of Coumadin yesterday. Labs pending today. This time patient denies chest pain or shortness of breath. Patient denies nausea vomiting or diarrhea. Patient denies any urinary burning or frequency. On 07/18/2018 patient is alert and laying comfortably in bed. Met with patient' s yesterday and discussed plan of care. Patient's did receive 2 units of PRBCs yesterday hemoglobin improving to 8.2. Patient received 5 mg Coumadin yesterday states INR 1.3. Patient also started on Cleocin for potential infection in tooth. This time patient denies chest pain or shortness of breath. Patient denies nausea vomiting or diarrhea. Patient denies any urinary burning or frequency. Objective - Vital Signs Vital signs: Vital Signs Temp 98.4 F 07/18/18 07:28 Pulse 89 07/17/18 19:25 Resp 16 07/18/18 08:00 BP 112/73 07/18/18 07:28 Pulse Ox 90 L 07/18/18 07:28 Intake & Output 07/17/18 07/18/18 07/18/18 18:59 06:59 18:59 Intake Total 1110 310 Balance 1110 310 Weight 82.5 kg Intake: Oral 800 Blood Product 310 310 Rc As-1 Unit 0 310 [id number] Rc As-3 Unit 310 [id number] Other: Voiding Method Toilet Toilet Toilet # Voids 2 2 # Bowel Movements 1 - Exam In general patient is alert responsive in no apparent distress HEENT head normocephalic and atraumatic Neck is supple no JVD no goiter no lymphadenopathy Chest exam reveals a few scattered crackles no wheezing Cardiac exam reveals regular heart sounds S1 and S2 no gallops no murmurs Abdomen is soft nontender no organomegaly with normal bowel sounds Extremity exam reveals no edema no cyanosis or clubbing Neurological examination reveals right sided weakness which is chronic - Labs CBC & Chem 7: 07/18/18 07:36 07/18/18 07:36 Labs: Abnormal Lab Results - Last 24 Hours (Table) 07/14/18 07/17/18 07/17/18 Range/Units 13:09 10:48 10:48 RBC 1.86 L (4.30-5.90) m/uL Hgb 6.4 L* (13.0-17.5) gm/dL Hct 20.9 L (39.0-53.0) % MCV 111.9 H D (80.0-100.0) fL MCHC 30.8 L (31.0-37.0) g/dL RDW 24.6 H (11.5-15.5) % PT (9.0-12.0) sec INR 1.2 H (<1.2) Sodium (137-145) mmol/L Chloride (98-107) mmol/L Carbon Dioxide (22-30) mmol/L BUN (9-20) mg/dL Creatinine (0.66-1.25) mg/dL Glucose (74-99) mg/dL Calcium (8.4-10.2) mg/dL ALT (21-72) U/L Total Protein (6.3-8.2) g/dL Albumin (3.5-5.0) g/dL Crossmatch See Detail 07/17/18 07/18/18 07/18/18 Range/Units 10:48 07:36 07:36 RBC 2.53 L (4.30-5.90) m/uL Hgb 8.2 L D (13.0-17.5) gm/dL Hct 26.2 L (39.0-53.0) % MCV 103.5 H D (80.0-100.0) fL MCHC (31.0-37.0) g/dL RDW 25.9 H (11.5-15.5) % PT 12.2 H (9.0-12.0) sec INR 1.3 H (<1.2) Sodium 135 L (137-145) mmol/L Chloride (98-107) mmol/L Carbon Dioxide 21 L (22-30) mmol/L BUN 4 L (9-20) mg/dL Creatinine 0.50 L (0.66-1.25) mg/dL Glucose 101 H (74-99) mg/dL Calcium 7.4 L (8.4-10.2) mg/dL ALT (21-72) U/L Total Protein 4.1 L (6.3-8.2) g/dL Albumin 1.8 L (3.5-5.0) g/dL Crossmatch 07/18/18 Range/Units 07:36 RBC (4.30-5.90) m/uL Hgb (13.0-17.5) gm/dL Hct (39.0-53.0) % MCV (80.0-100.0) fL MCHC (31.0-37.0) g/dL RDW (11.5-15.5) % PT (9.0-12.0) sec INR (<1.2) Sodium 136 L (137-145) mmol/L Chloride 109 H (98-107) mmol/L Carbon Dioxide (22-30) mmol/L BUN 3 L (9-20) mg/dL Creatinine 0.50 L (0.66-1.25) mg/dL Glucose (74-99) mg/dL Calcium 7.8 L (8.4-10.2) mg/dL ALT 19 L (21-72) U/L Total Protein 4.0 L (6.3-8.2) g/dL Albumin 1.8 L (3.5-5.0) g/dL Crossmatch Assessment and Plan Assessment: #1 supratherapeutic INR patient given vitamin K in the emergency room INR is 1 today. Patient received 5 mg Coumadin yesterday. Patient received an additional 5 mg Coumadin yesterday. INR today 1.3 #2 severe anemia hemoglobin down to 5.6 on presentation likely related to subacute blood loss gastroenterology consultation was requested. Per GI consult will continue to monitor hemoglobin and Hemotocrit and transfuse as needed. GI to discuss case with patient's and any concern and if any bleeding arises plan for endoscopic evaluation. She received an additional 2 units PRBCs yesterday. Hemoglobin improving to 8.2. No plans for endoscopic studies per GI services at this time #3 previous history of stroke with right sided weakness patient has known history of large bilateral stroke with midline shift status post hemicraniotomy in March 2015 and [employer] shunt placement in August 2015 #4 known history of protein C deficiency and patent tillman ovale with previous stroke #5 underlying history of seizure disorder maintained on Vimpat and Keppra medications reordered #6 previous history of alcohol abuse patient denies any recent alcohol intake #7 underlying history of hypertension #8 underlying history of hyperlipidemia #9 large right leg hematoma. Patient states he fell prior to admission. Patient received total of 4 units PRBCs. Hemoglobin improving 8.2 #10 tooth infection. Patient has follow-up appointment dentist outpatient. Patient started on Cleocin 150 mg 3 times a day DVT prophylaxis Lovenox and GI prophylaxis protonix I performed an examination of the patient and discussed their management with the Nurse Practitioner. I have reviewed the Nurse Practitioner's notes and agree with the documented findings and plan of care
[2018-07-18] MEDS: THIAMINE 100 MG TAB PO SCH ×2 (11:54→16:29)
[2018-07-18 14:00] VITALS: BMI 28.5
[2018-07-18] MEDS ORDERED: WARFARIN 7.5 MG TAB PO ONE (18:00)
[2018-07-18] MEDS: TEMAZEPAM 30 MG CAP PO PRN (20:36)
[2018-07-19] MEDS: oxyCODONE-APAP 10-325MG 1 EACH TAB PO PRN ×3 (00:07→11:11)
[2018-07-19] MEDS: LACOSAMIDE 50 MG TABLET PO SCH ×2 (05:28→16:32)
[2018-07-19] MEDS: CLINDAMYCIN 150 MG CAP PO SCH ×2 (09:24→15:49)
[2018-07-19] MEDS: ENOXAPARIN 40 MG/0.4 ML SYRINGE SQ SCH (09:24)
[2018-07-19] MEDS: PANTOPRAZOLE 40 MG TABLET PO SCH ×2 (09:24→16:32)
[2018-07-19] MEDS: GABAPENTIN 300 MG CAP PO SCH ×2 (09:25→15:49)
[2018-07-19] MEDS: THIAMINE 100 MG TAB PO SCH ×2 (11:11→16:26)
--- NOTE | 2018-07-19 11:27 | P.PN ---
Subjective Progress Note Date: 07/19/18 Principal diagnosis: Supratherapeutic INR anemia No sign or symptoms of GI bleeding. Tolerating diet. Denies abdominal pain. Large hematoma to the right lower extremity. INR 1.3. Hemoglobin 8.2 yesterday. Received 4 units of blood since admission. Objective - Vital Signs Vital signs: Vital Signs Temp 96.3 F L 07/19/18 07:42 Pulse 89 07/17/18 19:25 Resp 17 07/19/18 10:06 BP 119/77 07/19/18 07:42 Pulse Ox 93 L 07/19/18 07:42 Intake & Output 07/18/18 07/19/18 07/19/18 18:59 06:59 18:59 Intake Total 1080 640 Balance 1080 640 Weight 82.5 kg Intake: Oral 640 Other 1080 Other: Voiding Method Toilet Toilet # Voids 3 2 2 - Exam General appearance: The patient is alert, oriented, in no acute distress. HET: Head is normocephalic and atraumatic. Pupils are equal and reactive. Oropharynx is clear without lesions. Neck: Supple without lymphadenopathy. Trachea midline. Heart: S1 S2. Regular rate and rhythm. Lungs: No crackles or wheezes are heard. Abdomen: Soft, nontender, nondistended with bowel sounds. No peritoneal signs. No palpable organomegaly or masses. Extremities: Right lower extremity hematoma extending from side to ankle. Radial and pedal pulses are 2/4 bilaterally. Neurological: No focal deficits. Strength and sensation are grossly intact. - Labs CBC & Chem 7: 07/18/18 07:36 07/18/18 07:36 Assessment and Plan (1) Anemia Narrative/Plan: Presently no signs or symptoms of GI bleeding negative FOBT. Large hematoma to the right lower extremity status post fall most likely acute blood loss anemia is secondary to right lower extremity hematoma. Current Visit: Yes Status: Acute Code(s): D64.9 - ANEMIA, UNSPECIFIED SNOMED Code(s): 912495090 (2) Supratherapeutic INR Narrative/Plan: Warfarin-induced coagulopathy history of protein C deficiency CVA patent foramen ovale Current Visit: Yes Status: Acute Code(s): R79.1 - ABNORMAL COAGULATION PROFILE SNOMED Code(s): 129079199 Plan: 1. Supportive care. CBC pending. Warfarin restarted. Diet as tolerated. Continue monitor CBC. EGD colonoscopy 2014 gastritis esophagitis diverticulosis hemorrhoids. No plans for inpatient endoscopic exams at this time unless clinical condition warrants. Assessment and plan a care discussed with Dr. Nash
[2018-07-19 12:57] LABS: Anisocytosis Marked; Basophils % (A) 0 %; Eosinophils # (A) 0.1 k/uL (0-0.7); Eosinophils % (A) 1 %; HCT 28.5 % (39.0-53.0); HGB 8.9 gm/dL (13.0-17.5); Hypochromasia Marked; Lymphocytes % (A) 14 %; MCH 33.2 pg (25.0-35.0); MCHC 31.4 g/dL (31.0-37.0); Macrocytosis Marked; Mean Platelet Volume 7.8; Monocytes # (A) 0.7 k/uL (0-1.0); Monocytes % (A) 9 %; Neutrophils # (A) 5.2 k/uL (1.3-7.7); Neutrophils % (A) 73 %; Platelet Count 234 k/uL (150-450); Poikilocytosis Slight; RBC 2.69 m/uL (4.30-5.90); WBC 7.1 k/uL (3.8-10.6)
[2018-07-19 12:58] LABS: INR 1.7 (<1.2)
[2018-07-19 13:08] LABS: ALT 21 U/L (21-72); AST 20 U/L (17-59); Alkaline Phosphatase 91 U/L (38-126); Anion Gap 5 mmol/L; Blood Urea Nitrogen 5 mg/dL (9-20); Calcium 7.8 mg/dL (8.4-10.2); Carbon Dioxide 26 mmol/L (22-30); Chloride 105 mmol/L (98-107); Glucose 118 mg/dL (74-99); Potassium 4.3 mmol/L (3.5-5.1); Sodium 136 mmol/L (137-145); Total Bilirubin 0.9 mg/dL (0.2-1.3); Total Protein 4.4 g/dL (6.3-8.2)
[2018-07-19 14:26] LABS: Polychromasia Present
[2018-07-19 14:38] VITALS: BP 112/69; PULSE 77; RESP 18; TEMP 97.6
--- NOTE | 2018-07-19 14:57 | P.DS ---
Providers Date of admission: 07/14/18 15:38 Expected date of discharge: 07/19/18 Attending physician: Cayetano Galloway Consults: 07/14/18 15:13 Consult Physician Stat Consulting Provider: Gee Smith Consult Reason/Comments: Supratherapeutic INR/possible GI bleed Do you want consulting provider notified?: Yes Primary care physician: Cayetano Galloway [facility] Course: Discharge diagnosis #1 supratherapeutic INR patient given vitamin K in the emergency room INR is 1 today. Patient received 5 mg Coumadin yesterday. Patient received an additional 5 mg Coumadin yesterday. INR today 1.3 #2 severe anemia hemoglobin down to 5.6 on presentation likely related to subacute blood loss gastroenterology consultation was requested. Per GI consult will continue to monitor hemoglobin and Hemotocrit and transfuse as needed. GI to discuss case with patient's and any concern and if any bleeding arises plan for endoscopic evaluation. She received an additional 2 units PRBCs yesterday. Hemoglobin improving to 8.2. No plans for endoscopic studies per GI services at this time. Include for discharge from GI standpoint #3 previous history of stroke with right sided weakness patient has known history of large bilateral stroke with midline shift status post hemicraniotomy in March 2015 and TRANSISTOR TESTER shunt placement in August 2015 #4 known history of protein C deficiency and patent tillman ovale with previous stroke #5 underlying history of seizure disorder maintained on Vimpat and Keppra medications reordered #6 previous history of alcohol abuse patient denies any recent alcohol intake #7 underlying history of hypertension #8 underlying history of hyperlipidemia #9 large right leg hematoma. Patient states he fell prior to admission. Patient received total of 4 units PRBCs. Hemoglobin improving 8.9. CBC has been ordered for 2 days #10 tooth infection. Patient has follow-up appointment dentist outpatient. Patient started on Cleocin 150 mg 3 times a day #11 history of PFO and ischemic stroke. Patient has been managed on Coumadin. Home Coumadin dose resumed. PT/INR ordered for 2 days. Patient instructed follow-up closely with primary care provider Hospital Course Raffi Moya is a 48-year-old male who presented to the office with a chief complaint of generalized weakness , patient was evaluated in our office he had evidence of INR of more than 8 he was sent immediately to [facility] emergency room. He was evaluated in the emergency room by Dr. Guerra, hemoglobin was down to 5.6 INR was 7.5 patient was given vitamin K and 1 unit of red blood cells and was admitted to medical floor for further evaluation. Patient is unable to give any significant history , his old chart was reviewed , he has known history of stroke and had a previous history of brain shunt placement , patient is legally blind in his right eye and has residual right sided weakness in the upper and lower extremities since his stroke . Patient also has known history of protein C deficiency from chart review he also had history of patent foramen ovale with [id number] shunt and is maintained on Coumadin he had previous admissions with supra therapeutic INR he also has previous history of seizure disorder maintained on Keppra and Vimpat he also has known history of hypertension and ADHD . Patient was seen and examined on 07/15/2018 he is alert responsive in no apparent distress he is answering questions appropriately but then able to give much information he denies any fever or chills denies any chest pain or shortness of breath no cough no nausea or vomiting no abdominal pain no diarrhea or constipation he denies any blood in his urine or stools no burning was urination no frequency or urgency On 07/16/2018 patient was seen and examined on the telemetry floor, he is alert responsive in no apparent distress, he denies any fever or chills no headache or dizziness no chest pain no shortness of breath no cough no nausea or vomiting no abdominal pain and no urinary symptoms, labs are still pending for today, hemoglobin yesterday 6.5 INR yesterday 1.1 On 07/17/2018 patient is seen and examined. Patient is alert and oriented. Patient's hemoglobin yesterday 6.9. Patient did receive 5 mg of Coumadin yesterday. Labs pending today. This time patient denies chest pain or shortness of breath. Patient denies nausea vomiting or diarrhea. Patient denies any urinary burning or frequency. On 07/18/2018 patient is alert and laying comfortably in bed. Met with patient' s yesterday and discussed plan of care. Patient's did receive 2 units of PRBCs yesterday hemoglobin improving to 8.2. Patient received 5 mg Coumadin yesterday states INR 1.3. Patient also started on Cleocin for potential infection in tooth. This time patient denies chest pain or shortness of breath. Patient denies nausea vomiting or diarrhea. Patient denies any urinary burning or frequency. On 07/19/2018 patient expresses that he is very eager to go home. Hemoglobin improving to 8.9. Patient received 7.5 of Coumadin yesterday INR increasing to 1.7. Right leg remains bruised. Discussed patient's Yael. Will order CBC and INR for 2 days. Instructed the patient should follow-up with Dr. Dr. Galloway. This time patient denies chest pain or shortness of breath. Patient denies any urinary burning or frequency. Patient denies nausea vomiting or diarrhea. GI services have signed off and cleared patient for discharge. Home medications will be resumed. Discharge on Cleocin for 5 days for tooth infection. Patient instructed follow- up with dentist CBC and PT/INR ordered for 2 days I performed an examination of the patient and discussed their management with the Nurse Practitioner. I have reviewed the Nurse Practitioner's notes and agree with the documented findings and plan of care Patient Condition at Discharge: Stable Plan - Discharge Summary Discharge Rx Participant: No New Discharge Prescriptions: New Clindamycin [Cleocin] 150 mg PO TID 5 Days #15 cap Continue oxyCODONE-APAP 10-325MG [Percocet 10-325 mg] 1 tab PO Q6H Temazepam [Restoril] 30 mg PO HS Pravastatin Sodium [Pravachol] 40 mg PO DAILY Metoprolol Tartrate [Lopressor] 50 mg PO BID@0600,1800 Diltiazem Cd [Cardizem CD] 120 mg PO DAILY@0600 ALPRAZolam [Xanax] 0.25 mg PO Q6HR PRN PRN Reason: Anxiety guaiFENesin SYRUP 100MG/5ML [Robitussin] 200 mg PO Q6HR PRN PRN Reason: Cough Acetaminophen Tab [Tylenol] 500 mg PO Q6H PRN PRN Reason: Pain Ferrous Sulfate [Iron (65 MG Elemental)] 325 mg PO BID@0600,1800 Gabapentin [Neurontin] 600 mg PO TID Lisinopril [Zestril] 2.5 mg PO DAILY@0600 Docusate [Colace] 100 mg PO DAILY PRN PRN Reason: Constipation Pantoprazole [Protonix] 40 mg PO DAILY@0600 Dextroamphetamine/Amphetamine [Adderall] 10 mg PO BID@0600,1200 Lacosamide [Vimpat] 100 mg PO BID@0600,1800 levETIRAcetam [Keppra] 1,500 mg PO BID@0500,1700 Warfarin Sodium 5 mg PO HS Discharge Medication List oxyCODONE-APAP 10-325MG [Percocet 10-325 mg] 1 tab PO Q6H 04/16/15 [History] ALPRAZolam [Xanax] 0.25 mg PO Q6HR PRN 11/24/15 [History] Acetaminophen Tab [Tylenol] 500 mg PO Q6H PRN 11/24/15 [History] Diltiazem Cd [Cardizem CD] 120 mg PO DAILY@0600 11/24/15 [History] Metoprolol Tartrate [Lopressor] 50 mg PO BID@0600,1800 11/24/15 [History] Pravastatin Sodium [Pravachol] 40 mg PO DAILY 11/24/15 [History] Temazepam [Restoril] 30 mg PO HS 11/24/15 [History] guaiFENesin SYRUP 100MG/5ML [Robitussin] 200 mg PO Q6HR PRN 11/24/15 [History] Ferrous Sulfate [Iron (65 MG Elemental)] 325 mg PO BID@0600,1800 12/16/15 [ History] Gabapentin [Neurontin] 600 mg PO TID 11/16/16 [History] Dextroamphetamine/Amphetamine [Adderall] 10 mg PO BID@0600,1200 02/13/17 [ History] Docusate [Colace] 100 mg PO DAILY PRN 02/13/17 [History] Lisinopril [Zestril] 2.5 mg PO DAILY@0600 02/13/17 [History] Pantoprazole [Protonix] 40 mg PO DAILY@0600 02/13/17 [History] Lacosamide [Vimpat] 100 mg PO BID@0600,1800 02/22/18 [History] levETIRAcetam [Keppra] 1,500 mg PO BID@0500,1700 02/22/18 [History] Warfarin Sodium 5 mg PO HS 07/14/18 [History] Clindamycin [Cleocin] 150 mg PO TID 5 Days #15 cap 07/19/18 [Rx] Follow up Appointment(s)/Referral(s): Cayetano Galloway MD [Primary Care Provider] - 1-2 days Ambulatory/Diagnostic Orders: Complete Blood Count w/diff [LAB.AMB] Time Frame: 2 Days, Location: None Selected Prothrombin Time INR [LAB.AMB] Time Frame: 2 Days, Location: None Selected Activity/Diet/Wound Care/Special Instructions: PT WANTS PNEUM VAC. AT DC.
== END 2018-07-19 17:25 | disposition home or self-care (01) | DRG 813 ==
LOC: EC 11:56 → 3SCARD 15:38 → 4MS4W 07-17 03:25
PROVIDERS: ADMIT Internal Medicine; ATTEND Internal Medicine
PROC: 30233N1 Transfusion of Nonautologous Red Blood Cells into Peripheral Vein, Percutaneous Approach (ICD-10-PCS; principal; 2018-07-14)
PROC: 05HF33Z Insertion of Infusion Device into Left Cephalic Vein, Percutaneous Approach (ICD-10-PCS; 2018-07-17 09:30)
DX: D68.32 Hemorrhagic disorder due to extrinsic circulating anticoagulants (principal); D62 Acute posthemorrhagic anemia; D68.59 Other primary thrombophilia; I69.351 Hemiplegia and hemiparesis following cerebral infarction affecting right dominant side; T45.515A Adverse effect of anticoagulants, initial encounter; E78.5 Hyperlipidemia, unspecified; F90.9 Attention-deficit hyperactivity disorder, unspecified type; G40.909 Epilepsy, unspecified, not intractable, without status epilepticus; I69.312 Visuospatial deficit and spatial neglect following cerebral infarction; S80.11XA Contusion of right lower leg, initial encounter; H54.61 Unqualified visual loss, right eye, normal vision left eye; I10 Essential (primary) hypertension; J44.9 Chronic obstructive pulmonary disease, unspecified; K04.7 Periapical abscess without sinus; K21.9 Gastro-esophageal reflux disease without esophagitis; Z79.01 Long term (current) use of anticoagulants; Z87.891 Personal history of nicotine dependence; Z98.2 Presence of cerebrospinal fluid drainage device; F10.11 Alcohol abuse, in remission; W19.XXXA Unspecified fall, initial encounter; R41.3 Other amnesia; Z87.440 Personal history of urinary (tract) infections; Z86.19 Personal history of other infectious and parasitic diseases; Z79.891 Long term (current) use of opiate analgesic; Z79.899 Other long term (current) drug therapy
CPT/HCPCS: 36415; 36569; 70450; 71046; 74177; 76937; 80053; 82272; 82550; 82553; 84484; 85025; 85027; 85610; 85730; 86850; 86900; 86901; 86920; 93005; 96361; 96365; 96367; 99291

== ENCOUNTER → 2018-08-04 | Outpatient (CLI) | payer OTHER, MEDICARE ==
[2018-08-04 13:58] LABS: INR 1.3 (<1.2); Prothrombin Time 12.4 sec (9.0-12.0)
== END | disposition home or self-care (01) ==
LOC: LABWHC1 12:30
PROVIDERS: ATTEND Dentist Oral and Maxillofacial Surgery
DX: D68.9 Coagulation defect, unspecified (principal)
CPT/HCPCS: 36415; 85610

== ENCOUNTER 2022-10-29 11:56 | Emergency (ER) | payer OTHER, MEDICARE ==
--- NOTE | 2022-10-29 12:28 | ED ---
Upper Extremity HPI - General Chief Complaint: Extremity Injury, Upper Stated Complaint: Finger injury Time Seen by Provider: 10/29/22 12:04 Source: patient, family, RN notes reviewed, old records reviewed Mode of arrival: ambulatory Limitations: no limitations - History of Present Illness Initial Comments: This is a nontoxic-appearing 52-year-old male that presents with caregiver with complaints of right hand swelling and bruising after falling out of bed 2 days ago. He did see primary care Dr Galloway today who recommended he come to the emergency room for an x-ray. Family states he did take his Percocet prior to arrival and he has no pain at this time. There is some bruising to thumb with abrasions to swelling to hand and wrist. He does have a history of a right- sided weakness from stroke. He denies any other injuries. Did not hit his head, no loss of consciousness. MD Complaint: Injury to:: right -: days(s) (2) Severity scale (1-10): 0 Associated Symptoms: denies other symptoms - Related Data Home Medications Medication Instructions Recorded Confirmed oxyCODONE-APAP 10-325MG [Percocet 1 tab PO Q6H 04/16/15 07/14/18 10-325 mg] ALPRAZolam [Xanax] 0.25 mg PO Q6HR PRN 11/24/15 07/14/18 Acetaminophen Tab [Tylenol] 500 mg PO Q6H PRN 11/24/15 07/14/18 Diltiazem Cd [Cardizem CD] 120 mg PO DAILY@0600 11/24/15 07/14/18 Metoprolol Tartrate [Lopressor] 50 mg PO BID@0600,1800 11/24/15 07/14/18 Pravastatin Sodium [Pravachol] 40 mg PO DAILY 11/24/15 07/14/18 Temazepam [Restoril] 30 mg PO HS 11/24/15 07/14/18 guaiFENesin SYRUP 100MG/5ML 200 mg PO Q6HR PRN 11/24/15 07/14/18 [Robitussin] Ferrous Sulfate [Iron (65 MG 325 mg PO BID@0600,1800 12/16/15 07/14/18 Elemental)] Gabapentin [Neurontin] 600 mg PO TID 11/16/16 07/14/18 Dextroamphetamine/Amphetamine 10 mg PO BID@0600,1200 02/13/17 07/14/18 [Adderall] Docusate [Colace] 100 mg PO DAILY PRN 02/13/17 07/14/18 Pantoprazole [Protonix] 40 mg PO DAILY@0600 02/13/17 07/14/18 lisinopriL [Zestril] 2.5 mg PO DAILY@0600 02/13/17 07/14/18 Lacosamide [Vimpat] 100 mg PO BID@0600,1800 02/22/18 07/14/18 levETIRAcetam [Keppra] 1,500 mg PO BID@0500,1700 02/22/18 07/14/18 Warfarin Sodium 5 mg PO HS 07/14/18 07/14/18 Previous Rx's Medication Instructions Recorded Clindamycin [Cleocin] 150 mg PO TID 5 Days #15 cap 07/19/18 Allergies Allergy/AdvReac Type Severity Reaction Status Date / Time codeine AdvReac Nausea & Verified 10/29/22 12:00 Vomiting Review of Systems ROS Statement: Those systems with pertinent positive or pertinent negative responses have been documented in the HPI. ROS Other: All systems not noted in ROS Statement are negative. Past Medical History Past Medical History: COPD, CVA/TIA, Eye Disorder, GERD/Reflux, Hyperlipidemia, Hypertension, Memory Impairment, Seizure Disorder Additional Past Medical History / Comment(s): wants flu vaccine this admit. other hx:LAST SEIZURE . 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 hx anemia has had falls.PER -WHEN PT IN [employer] he got hepatits from the [facility] and was treated. History of Any Multi-Drug Resistant Organisms: None Reported Past Surgical History: Cholecystectomy, Orthopedic Surgery Additional Past Surgical History / Comment(s): LEFT SHOULDER RECENT SX, LIBRA KNEE, RT ARM, STATES HAD A " 1980's BAD STAPH INFECTION YEARS AGO IN ONE KNEE", no mrsa to wifes knowlege, [employer] shunt- "hemicraniotomy."bone removed and replaced in his skull at [facility]". Past Anesthesia/Blood Transfusion Reactions: No Reported Reaction Past Psychological History: ADD/ADHD, Anxiety Smoking Status: Never smoker Past Alcohol Use History: Abuse, Heavy Past Drug Use History: None Reported - Past Family History Father History Unknown: Yes Additional Family Medical History / Comment(s): Pt is adopted General Exam Limitations: no limitations General appearance: alert Head exam: Present: atraumatic. Absent: normocephalic Respiratory exam: Absent: respiratory distress, accessory muscle use Cardiovascular Exam: Present: regular rate Right Elbow exam: Absent: tenderness, swelling, erythema, effusion, tenderness over radial head Forearm Wrist exam: Present: swelling, abrasion. Absent: tenderness Hand Wrist exam: Present: swelling, abrasion, ecchymosis, other (Patient has weakness of the right hand due to previous stroke). Absent: tenderness, deformity, dislocation, erythema Vascular: Present: normal capillary refill, radial pulse. Absent: vascular compromise Neurological exam: Present: alert Psychiatric exam: Present: normal affect, normal mood Skin exam: Present: warm, dry, normal color. Absent: cyanosis, diaphoretic, petechiae, pallor Course Vital Signs 10/29/22 10/29/22 11:57 13:34 Temperature 98.4 F 98.5 F Pulse Rate 83 78 Respiratory 20 19 Rate Blood Pressure 129/87 107/89 O2 Sat by Pulse 98 94 L Oximetry Procedures - Orthopedic Splinting/Casting Injury #1 Side: right Upper Extremity Injury Location: short arm Lower Extremity Immobilizer: Tor wrap, synthetic pre-padded splint Medical Decision Making - Medical Decision Making Patient fell out of bed 2 days ago injuring his right hand. Sent by primary care doctor today for evaluation. states that he did not hit his head. No loss of consciousness. He is no longer taking Coumadin as he is drinking alcohol again. X-ray of the right hand, wrist and forearm interpreted by me shows a nondispl aced distal radius fracture. Radiologist impression vague lucency noted involving the distal radius with intra-articular extension consistent with fracture. Impression nondisplaced distal radial fracture. Short-term splint applied, patient is vascularly intact prior to and post splinting. Decreased sensation due to previous stroke. He will be referred to orthopedics. states they seen Dr. Meyer in the past. Patient has history of COPD, CVA, hemicraniotomy, GERD, hyperlipidemia, hypertension, seizure disorder, legally blind wearing a patch over her right eye, alcohol use, anxiety Case discussed with Dr. Mares Was pt. sent in by a medical professional or institution? @ -yes PCP Dr Galloway Did you speak to anyone other than the patient for history? @ - Did you review nursing and triage notes? @ -yes i agree Were old charts reviewed? @ -no Differential Diagnosis? @ -Wrist sprain, wrist and/or hand fracture, cellulitis, contusion EKG interpreted by me (3pts min.)? @ -[none] X-rays interpreted by me (1pt min.)? @ -Yes as above CT interpreted by me (1pt min.)? @ -[none] U/S interpreted by me (1pt. min.)? @ -[none] What testing was considered but not performed? (CT, X-rays, U/S, labs)? Why? @ no What meds were considered but not given? Why? @ -none Did you discuss the management of the patient with other professionals? @ -no Did you reconcile home meds? @ -no Was smoking cessation discussed for >3mins.? @ -no Was critical care preformed (if so, how long)? @ -no Were there social determinants of health that impacted care today? How? (Homelessness, low income, unemployed, alcoholism, drug addiction, transportation, low edu. Level, literacy, decrease access to med. care, nursing home, rehab)? @ -alcoholism Was there de-escalation of care discussed even if they declined? (Discuss DNR or withdrawal of care, Hospice)? @ -no What co-morbidities impacted this encounter? (DM, HTN, Smoking, COPD, CAD, Cancer, CVA, Hep., AIDS, mental health diagnosis, sleep apnea, morbid obesity)? @ -COPD, CVA, hemicraniotomy, GERD, hyperlipidemia, hypertension, seizure disorder, legally blind wearing a patch over her right eye, alcohol use, anxiety Was patient admitted / discharged? @ -Discharged Undiagnosed new problem with uncertain prognosis? @ -[none] Drug Therapy requiring intensive monitoring for toxicity (Heparin, Nitro, Insulin, Cardizem)? @ -no Were any procedures done? @ -short arm splint Diagnosis/symptom? @ -Distal radius fracture nondisplaced right Acute, or Chronic, or Acute on Chronic? @ -ACute Uncomplicated (without systemic symptoms) or Complicated (systemic symptoms)? @ -Uncomplicated Side effects of treatment? @ -[none] Exacerbation, Progression, or Severe Exacerbation] @ -[no] Poses a threat to life or bodily function? @ no Disposition Clinical Impression: Distal radius fracture, right Disposition: HOME SELF-CARE Condition: Good Instructions (If sedation given, give patient instructions): Wrist Fracture in Adults (ED) Additional Instructions: Rest, ice, elevate and wear splint until seen by orthopedics. Continue your Percocet as previously prescribed for pain. Return with any new or concerning symptoms. Is patient prescribed a controlled substance at d/c from ED?: No Referrals: Cayetano Galloway MD [Primary Care Provider] - 1-2 days Cornelius Meyer MD [STAFF PHYSICIAN] - 1-2 days Time of Disposition: 13:27
--- NOTE | 2022-10-29 13:08 | XR ---
EXAMINATION TYPE: XR wrist complete RT, XR hand complete RT, XR forearm RT DATE OF EXAM: 10/29/2022 CLINICAL HISTORY: pain TECHNIQUE: Frontal, lateral and oblique images of the right wrist and hand are obtained. 2 views of the right forearm are also submitted. COMPARISON: None. FINDINGS: There is vague lucency noted involving the distal radius with intra-articular extension consistent wi th fracture. No additional fractures noted. The joint spaces appear within normal limits. Mild soft tissue swelling noted. IMPRESSION: Subtle virtually nondisplaced distal radial fracture
[2022-10-29 13:35] VITALS: BP 107/89; PULSE 78; RESP 19; TEMP 98.5
== END 2022-10-29 13:35 | disposition home or self-care (01) ==
LOC: EC 11:56
DX: S52.501A Unspecified fracture of the lower end of right radius, initial encounter for closed fracture (principal); J44.9 Chronic obstructive pulmonary disease, unspecified; K21.9 Gastro-esophageal reflux disease without esophagitis; E78.5 Hyperlipidemia, unspecified; I10 Essential (primary) hypertension; F90.9 Attention-deficit hyperactivity disorder, unspecified type; F41.9 Anxiety disorder, unspecified; Z79.899 Other long term (current) drug therapy; Z79.02 Long term (current) use of antithrombotics/antiplatelets; Z88.5 Allergy status to narcotic agent; Z86.73 Personal history of transient ischemic attack (TIA), and cerebral infarction without residual deficits; W06.XXXA Fall from bed, initial encounter
CPT/HCPCS: 99283